=== PATIENT | female | born 1970 | race African-American/Black ===

== ENCOUNTER 2017-09-09 10:25 | Emergency (ER) | payer MEDICAID ==
[~2017-09-09] VITALS: Ht 180.3 cm; Wt 249.5 kg
[~2017-09-09 10:25] MED LIST: ACETAMINOPHEN325 MG PO; ACIDOPHILUS PO; ADULT LOW DOSE81 MG PO; ADVAIRDISKUS; ALBUTEROL INHAL17 GM IH; AMLODIPINE BESY10 MG PO; AMOXICILLIN 50500 M1 PO; BENTYL 10 MG CA10 MG PO; CARVEDILOL12.5 MG; CATAPRES-TTS 20.2 MG PO; CATAPRES0.2 MG PO; CLEOCIN HCL300 MG PO; CLONIDINE HCL0.2 M2 OR; CLONIDINE HCL0.2 M2 PO; CLONIDINE HCL0.3 M2; CLONIDINE0.1 PO; COLACE100 MG PO; COREG PO; COREG12.5 MG PO; COZAAR 25 MG TA25 MG PO; DILTIAZEM ER360 MG; FERRO-TIME325 MG PO; FISH OIL 1,001000 MG PO; FISHOIL PO; FLONASE16 GM NS; FLOVENT HFA 2220 MC1 IH; GLUCOPHAGE; GLUCOPHAGE1000 MG PO; HUMALOG100 UNIT/1 SQ; HYDROCHLOROTHIA25 M1 PO; HYZAAR 100-251 EACH PO; KEFLEX500 MG PO; KLOR-CON 1010 MEQ; KLOR-CON 1010 MEQ PO; KLOR-CON20 MEQ PO; LANTUS SC; LASIX 40 MG TAB40 M1 PO; LEVAQUIN 500 M500 M2 PO; LEVEMIR SQ; LIDODERM 5%1 PATC1 TRANSDERM; LISINOPRIL20 MG PO; LISINOPRIL40 MG PO; LORATIDINE 10 M10 M1 PO; LOTREL 10-20 M1 EACH PO; MEDROLDOSEPACK PO; METFORMIN 500500 MG PO; MIRALAX255 GM PO; NITROQUICK0.4 MG SL; NITROSTAT0.4 MG SUBLING; NORCO 5-325 TA1 EACH PO; NOVOLOG100 UNIT/1 SQ; OMEPRAZOLE20 M2 PO; PENICILLIN; PERCOCET 5-3251 EACH PO; PREDNISONE 10 M10 M1 PO; PREDNISONE 10 M10 MG PO; PREDNISONE 20 M20 M1 PO; PROAIR HFA8.5 GM PO; SEREVENT DISKU50 MCG IH; SIMVASTATIN PO; SIMVASTATIN40 MG PO; SINGULAIR 10 MG10 M1 PO; SYMBICORT160 MCG/4. INH; TRAMADOL 50 MG50 MG; TRANDATE 200 M200 M1 PO; VIBRAMYCIN 100100 MG PO; VICODIN ES TAB1 EACH; VITAMIN B 12 PO; ZPAK PO
[2017-09-09] MEDS ORDERED: NEURONTIN 300300 M1 PO (10:36)
[2017-09-09] MEDS ORDERED: TRAMADOL 50 MG50 MG PO (10:36)
[2017-09-09] MEDS ORDERED: ZANAFLEX2 MG PO (10:38)
[2017-09-09] MEDS ORDERED: CETIRIZINE HCL5 MG PO (10:39)
[2017-09-09] MEDS ORDERED: ATORVASTATIN CA40 MG PO (10:40)
[2017-09-09] MEDS ORDERED: SYMBICORT160 MCG/4. INH (10:41)
[2017-09-09] MEDS ORDERED: CLARITIN10 MG PO (10:42)
[2017-09-09] MEDS ORDERED: NYAMYC15 GM TOP (10:43)
[2017-09-09] MEDS ORDERED: AMLODIPINE BESY10 MG PO (10:43)
[2017-09-09] MEDS ORDERED: IRON325 PO (10:44)
[2017-09-09] MEDS ORDERED: ERGOCALCIF50000 UNIT PO (10:48)
[2017-09-09] MEDS ORDERED: VICTOZA0.6 MG/0.1 SUBQ (10:49)
[2017-09-09] MEDS ORDERED: VITAMIN D3400 UNIT PO (10:51)
[2017-09-09] MEDS ORDERED: SERTRALINE HCL50 MG PO (10:51)
[2017-09-09] MEDS ORDERED: SINGULAIR 10 MG10 M1 PO (10:52)
[2017-09-09] MEDS ORDERED: FLONASE SENSIM9.9 ML INH (10:55)
[2017-09-09] MEDS ORDERED: MIRALAX17 GM PO (10:55)
[2017-09-09] MEDS ORDERED: ATROVENT HFA14 GM INH (10:56)
[2017-09-09] MEDS ORDERED: OLOPATADINE HC2.5 ML OPHTHALMIC (10:57)
[2017-09-09] MEDS ORDERED: ZPAK PO (13:46)
[2017-09-09] MEDS ORDERED: PREDNISONE 20 M20 MG PO (13:46)
[2017-09-09] MEDS ORDERED: ALBUTEROL2.5 MG/31 INH (13:46)
[2017-09-09 13:58] VITALS: BP 170/89
--- NOTE | 2017-09-10 14:15 | EKG ---
[place] [address] ELECTROCARDIOGRAM REPORT Name: YOUNG JACOBSEN Room: [facility]#: [id number] Admission: 09/09/17 Attend Phys: Discharge: 09/09/17 Date of : 70 Report #: [id number] THIS REPORT FOR: //name// [facility] ED Test Date: 2017-09-09 Test Time: 11:00:08 Pat Name: YOUNG JACOBSEN Department: Room: Gender: F Cardiology Clinical Consultant: Padmini STERLING : 1970 Requested By: Sharath Bellamy Order Number: [id number] MD: Eagle Hill Measurements Intervals [place] Rate: 71 P: 43 CT: 217 QRS: 47 QRSD: 103 T: 26 QT: 410 QTc: 446 Interpretive Statements Sinus rhythm Prolonged CT interval Probable left atrial enlargement Low voltage, precordial leads Compared to ECG 03/11/2015 08:44:20 First degree AV block now present Low QRS voltage now present Electronically Signed On 09-10-2017 14:14:58 [employer] by Eagle Hill [email or web address] <ELECTRONICALLY SIGNED> By: Eagle Hill MD, [facility] 09/10/17 1414 1100 1100 Eagle Hill MD, [facility] /EPI
== END 2017-09-09 13:59 | disposition home or self-care (01) ==
LOC: M.ERS 10:25
DX: M79.5 Residual foreign body in soft tissue (principal); J20.9 Acute bronchitis, unspecified; J45.901 Unspecified asthma with (acute) exacerbation; J44.9 Chronic obstructive pulmonary disease, unspecified; I10 Essential (primary) hypertension; E11.9 Type 2 diabetes mellitus without complications; J45.909 Unspecified asthma, uncomplicated; Z79.4 Long term (current) use of insulin; Z88.7 Allergy status to serum and vaccine; Z88.5 Allergy status to narcotic agent; Z91.041 Radiographic dye allergy status; Z88.2 Allergy status to sulfonamides; Z88.1 Allergy status to other antibiotic agents; Z88.8 Allergy status to other drugs, medicaments and biological substances; W46.0XXA Contact with hypodermic needle, initial encounter; Y93.89 Activity, other specified; Y92.89 Other specified places as the place of occurrence of the external cause; Y99.8 Other external cause status

== ENCOUNTER 2018-04-04 13:19 | Emergency (ER) | payer MEDICAID ==
[~2018-04-04] VITALS: Ht 180.3 cm; Wt 242.7 kg
[~2018-04-04 13:19] MED LIST changes: +ALBUTEROL2.5 MG/31 INH; +ATORVASTATIN CA40 MG PO; +ATROVENT HFA14 GM INH; +CETIRIZINE HCL5 MG PO; +CLARITIN10 MG PO; +ERGOCALCIF50000 UNIT PO; +FLONASE SENSIM9.9 ML INH; +IRON325 PO; +MIRALAX17 GM PO; +NEURONTIN 300300 M1 PO; +NYAMYC15 GM TOP; +OLOPATADINE HC2.5 ML OPHTHALMIC; +PREDNISONE 20 M20 MG PO; +SERTRALINE HCL50 MG PO; +TRAMADOL 50 MG50 MG PO; +VICTOZA0.6 MG/0.1 SUBQ; +VITAMIN D3400 UNIT PO; +ZANAFLEX2 MG PO
[2018-04-04] MEDS ORDERED: TOUJEO SOL300 UNIT/1 SUBQ (13:58)
[2018-04-04] MEDS ORDERED: LORATIDINE 10 M10 M1 PO (14:00)
[2018-04-04 14:09] LABS: ABSOLUTE BASOPHILS 0.1 thou/uL (0.0-0.2); ABSOLUTE EOSINOPHILS 0.2 thou/uL (0.0-0.7); ABSOLUTE LYMPHOCYTES 1.4 thou/uL (0.8-5.3); ABSOLUTE MONOCYTES 0.8 thou/uL (0.0-1.2); ABSOLUTE NEUTROPHILS 7.7 thou/uL (1.6-8.1); BASOPHILS 0.5 %; EOSINOPHILS 2.1 %; HEMATOCRIT 35.4 % (37.0-47.0); HEMOGLOBIN 10.9 gm/dL (12.0-15.0); LYMPHOCYTES 13.9 %; MCH 23.4 pg (26.0-34.0); MCHC 30.8 g/dL (28.0-37.0); MCV 75.8 fL (80.0-100.0); MONOCYTES 8.3 %; MPV 7.9 fl. (7.2-11.1); NUCLEATED RBCS 0 /100WBC; PLATELET COUNT* 310 thou/uL (150-400); POLYS 75.2 %; RBC 4.67 mil/uL (4.20-5.00); RDW-CV 21.3 % (10.5-14.5); WBC 10.2 thou/uL (4.0-11.0)
[2018-04-04 14:17] LABS: CALCIUM 8.8 mg/dL (8.5-10.1); CREATININE 1.2 mg/dL (0.6-1.3); POTASSIUM 4.2 mmol/L (3.5-5.1)
[2018-04-04 14:29] LABS: ALBUMIN 2.6 g/dL (3.4-5.0); TOTAL BILIRUBIN 0.2 mg/dL (<0.1-1.0); TOTAL PROTEIN 6.6 g/dL (6.4-8.2); TROPONIN-I LEVEL 0.14 ng/mL (<0.06)
[2018-04-04 14:41] LABS: ANISOCYTOSIS 1+; HYPOCHROMASIA 1+; PLATELET ESTIMATE ADEQUATE
[2018-04-04 17:36] LABS: URINE BILIRUBIN NEGATIVE (Negative); URINE BLOOD 1+ (Negative); URINE CLARITY CLEAR; URINE COLOR YELLOW; URINE GLUCOSE-RANDOM NEGATIVE (Negative); URINE KETONES NEGATIVE (Negative); URINE LEUKOCYTES-REFLEX NEGATIVE (Negative); URINE NITRITE-REFLEX NEGATIVE (Negative); URINE PROTEIN 1+ (Negative); URINE UROBILINOGEN 0.2 E.U./dl (0.2-1.0)
[2018-04-04 17:45] LABS: BACTERIA-REFLEX >30 Many /HPF (None Seen); CASTS None Seen /LPF (None Seen); CRYSTALS None Seen /LPF (None Seen); SQUAMOUS >10 Many /LPF (0-3); URINE RBC 3-10 Few /HPF (0-2); URINE WBC-REFLEX 0-5 Rare /HPF (0-5)
[2018-04-04] MEDS ORDERED: MEDROLDOSEPACK PO (18:18)
[2018-04-04 18:55] VITALS: BP 162/84
--- NOTE | 2018-04-05 17:15 | EKG ---
[place] [address] ELECTROCARDIOGRAM REPORT Name: YOUNG JACOBSEN Room: [facility]#: [id number] Admission: 04/04/18 Attend Phys: Discharge: 04/04/18 Date of : 70 Report #: [id number] THIS REPORT FOR: //name// [facility] ED Test Date: 2018-04-04 Test Time: 15:12:41 Pat Name: YOUNG JACOBSEN Department: Room: Gender: F Marketing Services Coordinator: Padmini STERLING : 1970 Requested By: Eagle Dooley Order Number: [id number] MD: Aurelio Infante Measurements Intervals [place] Rate: 77 P: 39 WA: 188 QRS: 33 QRSD: 105 T: 24 QT: 377 QTc: 427 Interpretive Statements Sinus rhythm Baseline wander in lead(s) V2 Compared to ECG 09/09/2017 11:00:08 First degree AV block no longer present Electronically Signed On 04-05-2018 17:15:34 CDT by Aurelio Infante [email or web address] <ELECTRONICALLY SIGNED> By: Aurelio Infante MD, [facility] 04/05/18 1715 1512 11 Aurelio Infante MD, [facility] /EPI
--- NOTE | 2018-04-05 17:17 | EKG ---
[place] [address] ELECTROCARDIOGRAM REPORT Name: YOUNG JACOBSEN Room: [facility]#: [id number] Admission: 04/04/18 Attend Phys: Discharge: 04/04/18 Date of : 70 Report #: [id number] THIS REPORT FOR: //name// [facility] ED Test Date: 2018-04-04 Test Time: 17:54:55 Pat Name: YOUNG JACOBSEN Department: Room: Gender: F Cardiovascular Rn: Padmini STERLING : 1970 Requested By: Eagle Dooley Order Number: [id number] MD: Aurelio Infante Measurements Intervals [place] Rate: 78 P: 45 AR: 191 QRS: 41 QRSD: 102 T: 25 QT: 379 QTc: 432 Interpretive Statements Sinus rhythm Baseline wander in lead(s) V5 Compared to ECG 09/09/2017 11:00:08 First degree AV block no longer present Electronically Signed On 04-05-2018 17:17:24 CDT by Aurelio Infante [email or web address] <ELECTRONICALLY SIGNED> By: Aurelio Infante MD, [facility] 04/05/18 1717 1754 175 Aurelio Infante MD, [facility] /EPI
== END 2018-04-04 18:56 | disposition home or self-care (01) ==
LOC: M.ERS 13:19
PROVIDERS: Physician Assistant
DX: J45.901 Unspecified asthma with (acute) exacerbation (principal); I10 Essential (primary) hypertension; J44.9 Chronic obstructive pulmonary disease, unspecified; E11.9 Type 2 diabetes mellitus without complications; Z88.7 Allergy status to serum and vaccine; Z91.040 Latex allergy status; Z88.1 Allergy status to other antibiotic agents; Z88.2 Allergy status to sulfonamides; Z88.6 Allergy status to analgesic agent; Z88.8 Allergy status to other drugs, medicaments and biological substances; Z79.4 Long term (current) use of insulin

== ENCOUNTER 2018-07-13 17:04 | Inpatient (IN) | payer MEDICAID ==
[~2018-07-13] VITALS: Ht 180.3 cm; Wt 248.1 kg
[~2018-07-13 17:04] MED LIST changes: +TOUJEO SOL300 UNIT/1 SUBQ
[2018-07-13 17:12] VITALS: BP 185/94
[2018-07-13 17:56] LABS: HEMATOCRIT 38.9 % (37.0-47.0); MCH 23.7 pg (26.0-34.0); MCHC 30.8 g/dL (28.0-37.0); MPV 8.3 fl. (7.2-11.1); NUCLEATED RBCS 0 /100WBC; PLATELET COUNT* 315 thou/uL (150-400); RBC 5.05 mil/uL (4.20-5.00); RDW-CV 20.5 % (10.5-14.5); WBC 8.7 thou/uL (4.0-11.0)
[2018-07-13 18:16] LABS: CALCIUM 9.3 mg/dL (8.5-10.1); CREATININE 1.1 mg/dL (0.6-1.3); POTASSIUM 3.4 mmol/L (3.5-5.1)
[2018-07-13 18:24] LABS: ALBUMIN 3.1 g/dL (3.4-5.0); TOTAL BILIRUBIN 0.3 mg/dL (<0.1-1.0); TROPONIN-I LEVEL 0.15 ng/mL (<0.06)
[2018-07-13 18:34] LABS: ABSOLUTE EOSINOPHILS 0.3 thou/uL (0.0-0.7); ABSOLUTE LYMPHOCYTES 1.9 thou/uL (0.8-5.3); ABSOLUTE MONOCYTES 0.6 thou/uL (0.0-1.2); ABSOLUTE NEUTROPHILS 5.8 thou/uL (1.6-8.1)
[2018-07-13 18:35] LABS: ANISOCYTOSIS 2+; MICROCYTES 2+; PLATELET ESTIMATE ADEQUATE
[2018-07-13 18:36] LABS: LARGE PLATELETS RARE
[2018-07-13 18:39] LABS: TOTAL PROTEIN 7.4 g/dL (6.4-8.2)
[2018-07-13] MEDS ORDERED: IRON325 PO (19:58)
[2018-07-13] MEDS ORDERED: LIDOCAINE5 GM TRANSDERM (19:59)
[2018-07-13 20:51] LABS: APTT 25.2 Seconds (25.0-31.3); INR 1.1
[2018-07-13 23:45] VITALS: BP 162/99
[2018-07-13 23:50] VITALS: BP 188/108
[2018-07-14] VITALS (7 sets, daily range): BP systolic 142–197; BP diastolic 73–111
--- NOTE | 2018-07-14 05:18 | NUR ---
PT ARRIVED ON UNIT FROM ER AT 2345 ASSITED TO BED ORIENTED TO SURROUNDINGS VS AND ASSESSMENT STABLE ON 2L NC. PT RUNNING NSR. PT C/O HEADACHE GAVE PRN TYLENOL WITH GOOD EFFECT PT THEN C/O ITCHING WEB PAGED MD FOR ORDERS. WILL CONTINUE PLAN OF CARE.
[2018-07-14 12:34] LABS: CALCIUM 9.2 mg/dL (8.5-10.1); CREATININE 1.2 mg/dL (0.6-1.3); MAGNESIUM 1.8 mg/dL (1.8-2.4); POTASSIUM 3.9 mmol/L (3.5-5.1)
--- NOTE | 2018-07-14 13:37 | CON ---
[address] [address] CONSULTATION Name: YOUNG JACOBSEN Room: [address] Teresa Flanagan#: [id number] Admission: 07/13/18 Attend Phys: Anshu Ac Discharge: Date of : 70 Report #: [id number] THIS REPORT FOR: //name// CC: BECCA physician/PCP Pavan Dai DATE OF SERVICE: 07/14/2018 REQUESTING PHYSICIAN: Dr. Dai. INDICATION FOR CONSULTATION: Shortness of breath. HISTORY OF PRESENT ILLNESS: This is a 47-year-old female. She has a history of extreme obesity, body mass index is elevated to 76. The patient does have a history of obstructive sleep apnea. She uses a CPAP at home. She does not know the setting of the CPAP. She also does use oxygen 2 liters continuous. She does carry a diagnosis of bronchial asthma and is on Symbicort long-term. The patient only has a remote history of smoking. She has not had any recent hospitalizations. At this time, the patient is admitted with shortness of breath. Essentially, the patient does not have any other new major complaints; however, she does tell me that she has had increasing shortness of breath over the last several days, possibly a couple of weeks. She also says she that has been coughing, but there is not much sputum production. She has not had chest pain. She does have a nasal discharge, which is clear, but she always has a nasal discharge, this is longstanding and not new for her. There is no sore throat, no fever. There is mild swelling of lower extremities, not significantly changed compared with her baseline. The patient reports recently having had neck pain, which has now subsided. She says that she had a scan performed at [facility] for this. I do not have details available. The patient answers to the negative for all questions asked for review of systems, there were 12 questions asked, with the exception that she has had some joint pains and back pain. PAST MEDICAL HISTORY: Extreme morbid obesity, body mass index elevated to 76, ZAIN on CPAP [facility], On O2 2L [facility] bronchial asthma. I do not have previous PFTs available. Hypertension, diabetes, multiple hernia surgeries, multiple keloid surgeries, carpal tunnel syndrome, gastroesophageal reflux disease, hypertensive heart disease, hyperlipidemia, status post cholecystectomy. The last available echocardiogram available [facility], this is from 2010. I do not have a more recent echo available at this time. SOCIAL HISTORY: The patient states that she smoked a few cigarettes when she was younger, does not describe a longstanding history of smoking. There is no known history of heavy alcohol use [place] [address] CONSULTATION Name: YOUNG JACOBSEN Room: [address] MJoseRJose#: [id number] Admission: 07/13/18 Attend Phys: Anshu Ac Discharge: Date of : 70 Report #: [id number] CURRENT MEDICATIONS: The list is in [employer] and this was reviewed. HOME MEDICATIONS: The list also is in [employer] and is reviewed. ALLERGIES: MORPHINE, LATEX, SULFONAMIDE ANTIBIOTICS, CERTAIN TYPES OF TAPE AND TETANUS TOXOID ARE MENTIONED ALLERGIES. FAMILY HISTORY: There is no pertinent family history known at this time. PHYSICAL EXAMINATION: GENERAL: The patient is morbidly obese as mentioned. She is alert, awake and oriented. VITAL SIGNS: She has a pulse of 91 and a blood pressure elevated to 177/105. She is saturating at 93%. She is on 2 liters nasal cannula, which is her baseline oxygen level. She is breathing at around 20-22. She is afebrile with a temperature of 36.7. HEENT: Head is normocephalic and atraumatic. Pupils are equal and reactive. There is no throat erythema. Incredibly, I was able to see her whole uvula. Her airway by Mallampati classification will be class 1. Considering severe obesity, however, this is a much narrower than a typical Mallampati class 1 airway. There is minor throat erythema only. NECK: Does not show raised JVP, asymmetry, mass or lymph nodes. CHEST: Symmetrical expansion on inspection and palpation. On auscultation, breath sounds are equal, decreased. I do not hear any added sounds. HEART: Regular. There is no murmur. ABDOMEN: Soft and nontender. EXTREMITIES: Lower extremities show trace edema bilaterally. There is no calf tenderness. SKIN: Dry and intact. NEUROLOGICAL: She moves all extremities bilaterally equally and spontaneously with no focal deficit identified. LABORATORY DATA: The patient's chest x-ray is reviewed and compared with the patient's previous chest x-rays. There are bilateral radiopaque densities consistent with either increase in infiltrates or increase in pulmonary vascular congestion noted. Some of these findings do appear to be new compared with the patient's previous chest x-rays. Interpretation, however, is limited due to severe obesity. There are also bilateral increased hilar markings consistent with possible mediastinal lymphadenopathy. This is seen on previous x-rays as well. There is also some cardiomegaly. The patient's CBC as well as chemistries performed yesterday are in [employer] reviewed. I did have repeat chemistries added to this morning labs. These are also reviewed. D-dimer was 0.49. INR is 1.1. ASSESSMENT AND PLAN: [address] [place] [address] CONSULTATION Name: YOUNG JACOBSEN Room: [address] Teresa Rey.#: [id number] Admission: 07/13/18 Attend Phys: Anshu Ac Discharge: Date of : 70 Report #: [id number] 1. Shortness of breath. This appears to be multifactorial in the background. The patient has extreme obesity, which is her primary health concern. I would have liked to define further why current decompensation has occurred by doing a CT chest. The patient, however, appears to be too large to perform a CT. Chest x-ray does look worse compared with the previous chest x-rays. There likely are some infiltrates present. In addition, there may be a component of bronchospasm as well. The patient may also have some mild fluid overload. 2. Extreme morbid obesity, needs weight loss. This is still the primary etiology of her shortness of breath. She is already working on weight loss surgery. 3. Obstructive Sleep Apnea with Sleep Related Hypoventilation On CPAP [facility] with O2. Appears that she hypoventilates while asleep. Doubt that full control can be achieved with a CPAP. May benefit from either BiPAP or AVAPS [facility]. For now AVAPS sleep ordered, consider an outpatient sleep study later to switch to BiPAp 4. Pulmonary infiltrates/possible mediastinal lymphadenopathy. There are prominent hilar markings on previous x-rays noted as well. These are more prominent now. Unfortunately we may not be able to do a CT. I would go ahead and treat her with levofloxacin. I ordered it intravenously after obtaining a sputum culture as well as nasal swab for methicillin-resistant Staphylococcus aureus. If the patient's condition improves, then we would be inclined to change this over to oral soon. Would need f/u imaging. SHA level ordered to establish baseline 5. Bronchial asthma. For now, I did go ahead and order Solu-Medrol, could be switched over to oral prednisone soon if she continues to improve. She remains on nebulized bronchodilators and budesonide and Singulair already. 6. Mild fluid overload/possible cardiomegaly/edema. Her D-dimer is not elevated. There is an echocardiogram pending at this time. I will go ahead and give her a small dose of diuresis and see how she responds. Mild elevations in troponin I are noted. I would defer followup of these to the Cardiology Service. 7. Deep venous thrombosis prophylaxis, Lovenox. 8. Gastroesophageal reflux disease, proton pump inhibitor. Thanks for this consultation. <ELECTRONICALLY SIGNED> By: Rodrick Joaquin MD 07/14/18 1337 1241 1311Avidya Joaquin MD /nt
--- NOTE | 2018-07-14 13:45 | EKG ---
[place] [address] ELECTROCARDIOGRAM REPORT Name: YOUNG JACOBSEN Room: [address] M.R.#: [id number] Admission: 07/13/18 Attend Phys: Anshu Ac Discharge: Date of : 70 Report #: [id number] THIS REPORT FOR: //name// [facility] ED Test Date: 2018-07-13 Test Time: 17:14:53 Pat Name: YOUNG JACOBSEN Department: Room: [facility] Gender: F Anglesmith Helper: : 1970 Requested By: Jr Noel Order Number: [id number] MD: Dejan Burdick Measurements Intervals [place] Rate: 87 P: 45 IA: 204 QRS: 48 QRSD: 107 T: 53 QT: 382 QTc: 460 Interpretive Statements Sinus rhythm Borderline prolonged IA interval Compared to ECG 04/04/2018 17:54:55 No significant changes Electronically Signed On 07-14-2018 13:45:09 [employer] by Dejan Burdick [email or web address] <ELECTRONICALLY SIGNED> By: Dejan Burdick MD, [facility] 07/14/18 1345 1714 1714 Dejan Burdick MD, [facility] /EPI
--- NOTE | 2018-07-14 14:27 | NUR ---
Pt is A&O. Resides at home with brother. Pt states that she is independent. Pt has Medicaid in home caregivers through [employer], CGs come on Wednesday from 10-1230, Wednesday from 1-430 and Wednesday from 1-4. Pt has a walker, wc, commode and home o2 through [facility]. Pt wants a shower chair, CM will check to see if [employer] will pay for a shower chair. No hx of HH or SNF. Following for disposition.
--- NOTE | 2018-07-14 14:58 | EKG ---
[place] [address] ELECTROCARDIOGRAM REPORT Name: YOUNG JACOBSEN Room: [address] M.R.#: [id number] Admission: 07/13/18 Attend Phys: Anshu Ac Discharge: Date of : 70 Report #: [id number] THIS REPORT FOR: //name// [facility] Test Date: 2018-07-14 Test Time: 08:08:07 Pat Name: YOUNG JACOBSEN Department: Room: [address] Gender: F Machine Compositor: : 1970 Requested By: Cecile Wild Order Number: [id number] Gaurav MD: Dejan Burdick Measurements Intervals [place] Rate: 94 P: 49 RI: 195 QRS: 44 QRSD: 107 T: 26 QT: 384 QTc: 481 Interpretive Statements Sinus rhythm Compared to ECG 04/04/2018 17:54:55 No significant changes Electronically Signed On 07-14-2018 14:58:14 [employer] by Dejan Burdick [email or web address] <ELECTRONICALLY SIGNED> By: Dejan Burdick MD, [facility] 07/14/18 1458 7 7 Dejan Burdick MD, [facility] /EPI
--- NOTE | 2018-07-14 19:43 | NUR ---
ASSUMED PT CARE AT 0730, FULL ASSESMENT DONE CHARTED. PT A/O X4, DENIES CHEST PAIN, DENIES SOA THIS AM BUT WAS HAVING SOME DIFFICULTY THIS AFTERNOON. PT PLACED BACK ON 2L O2. BIPAP ORDERED FOR TONIGHT. PT UP WITH ASSIST/WALKER. BP ELEVATED, DID COME BACK DOWN AFTER HOME MEDS RESUMED. ALL OTHER VSS, SR/PVC'S ON THE MONITOR. FALL PRECAUTIONS IN PLACE. CALL LIGHT IN REACH. REPORT GIVEN TO SRINIVASAN DEL ROSARIO
[2018-07-15] VITALS: BP 141/83
--- NOTE | 2018-07-15 03:28 | NUR ---
ASSUMED CARE OF PT AT 1900. PT IS ALERT AND ORIENTED. VSS. PERRLA. NO COMPLAINTS OF PAIN. STEADY GAIT. PT IS IN SINUS RYTHM ON THE TELEMETRY. PT IS RESTING COMFORTABLY IN BED. RESPIRATIONS ARE EVEN AND NONLABORED. WILL CONTINUE TO MONITOR PT.
[2018-07-15 04:00] VITALS: BP 142/97
[2018-07-15 06:46] LABS: HEMATOCRIT 38.7 % (37.0-47.0); HEMOGLOBIN 11.5 gm/dL (12.0-15.0); MCH 23.3 pg (26.0-34.0); MCHC 29.8 g/dL (28.0-37.0); MCV 78.3 fL (80.0-100.0); MPV 8.8 fl. (7.2-11.1); NUCLEATED RBCS 0 /100WBC; PLATELET COUNT* 353 thou/uL (150-400); RBC 4.94 mil/uL (4.20-5.00); WBC 11.8 thou/uL (4.0-11.0)
[2018-07-15 07:03] LABS: CALCIUM 9.1 mg/dL (8.5-10.1); CREATININE 1.1 mg/dL (0.6-1.3); TOTAL BILIRUBIN 0.4 mg/dL (<0.1-1.0); TROPONIN-I LEVEL 0.15 ng/mL (<0.06)
[2018-07-15 07:13] LABS: ABSOLUTE LYMPHOCYTES 0.5 thou/uL (0.8-5.3); ABSOLUTE MONOCYTES 0.4 thou/uL (0.0-1.2); PLATELET ESTIMATE ADEQUATE
[2018-07-15 07:14] LABS: ANISOCYTOSIS 1+; POIKILOCYTOSIS 1+; POLYCHROMASIA 1+
--- NOTE | 2018-07-15 07:24 | 2DMMODE ---
[place] [address] 2 D/M-MODE ECHOCARDIOGRAM Name: YOUNG JACOBSEN Room: [address] Teresa Flanagan#: [id number] Admission: 07/13/18 Attend Phys: Pavan Dai Discharge: Date of : 70 Date of Service: 07/15/18 0723 Report #: [id number] THIS REPORT FOR: //name// APPROVED REPORT Study performed: 07/14/2018 18:14:14 EXAM: Comprehensive 2D, Doppler, and color-flow Echocardiogram Patient Location: Bedside BSA: 3.23 HR: 98 bpm BP: 177/105 mmHg Other Information Study Quality: Technically Limited Technically limited study due to body habitus. Indications Dyspnea 2D Dimensions IVSd: 14.97 (7-11mm) LVOT Diam: 23.70 (18-24mm) LVDd: 56.72 mm PWd: 16.89 (7-11mm) Ascending Ao: 36.65 (22-36mm) LVDs: 44.39 (25-40mm) Aortic Root: 32.77 mm Aortic Valve AoV Peak Mendez.: 1.12 m/s AO Peak Gr.: 5.06 mmHg LVOT Max P.89 mmHg AO Mean Gr.: 3.74 mmHg LVOT Mean P.67 mmHg LVOT Max V: 1.49 m/s AO V2 VTI: 18.14 cm LVOT Mean V: 0.86 m/s JANENE (VTI): 6.52 cm2 LVOT V1 VTI: 26.80 cm Mitral Valve E/A Ratio: 1.24 MV Decel. Time: 154.52 ms MV E Max Mendez.: 0.51 m/s MV PHT: 44.81 ms MVA (PHT): 4.91 cm2 Pulmonary Valve PV Peak Mendez.: 1.14 m/s PV Peak Gr.: 5.17 [place] [address] 2 D/M-MODE ECHOCARDIOGRAM Name: YOUNG JACOBSEN Room: [address] Teresa Flanagan#: [id number] Admission: 07/13/18 Attend Phys: Pavan Dai Discharge: Date of : 70 Date of Service: 07/15/18 0723 Report #: [id number] Left Ventricle The left ventricle is normal size. There is normal LV segmental wall motion. Moderate concentric left ventricular hypertrophy. Left ventricular systolic function is normal. LVEF is 55-60%. Transmitral Doppler flow pattern suggests impaired LV relaxation. Right Ventricle The right ventricle is normal size. The right ventricular systolic function is normal. Atria The left atrium size is normal. Interatrial septum not well visualized. The right atrium size is normal. Aortic Valve The aortic valve is normal in structure. No aortic regurgitation is present. There is no aortic valvular stenosis. Mitral Valve The mitral valve is normal in structure. There is no mitral valve regurgitation noted. No evidence of mitral valve stenosis. Tricuspid Valve Tricuspid valve is not well visualized. There is no tricuspid valve regurgitation noted. Pulmonic Valve The pulmonary valve is normal in structure. There is no pulmonic valvular regurgitation. Great Vessels The aortic root is normal in size. IVC is dilated. Pericardium There is no pericardial effusion. <Conclusion> The left ventricle is normal size. Moderate concentric left ventricular hypertrophy. Left ventricular systolic function is normal. LVEF is 55-60%. [place] [address] 2 D/M-MODE ECHOCARDIOGRAM Name: YOUNG JACOBSEN Room: [address] Teresa Flanagan#: [id number] Admission: 07/13/18 Attend Phys: Pavan Dai Discharge: Date of : 70 Date of Service: 07/15/18722 Report #: [id number] Transmitral Doppler flow pattern suggests impaired LV relaxation. IVC is dilated. <ELECTRONICALLY SIGNED> By: Aurelio Infante MD, [facility] 07/15/18722 2 0723 Aurelio Infante MD, [facility]ACC /INF
--- NOTE | 2018-07-15 08:22 | CON ---
[address] [address] CONSULTATION Name: YOUNG JACOBSEN Room: [address] Teresa Flanagan#: [id number] Admission: 07/13/18 Attend Phys: Anshu Ac Discharge: Date of : 70 Report #: [id number] THIS REPORT FOR: //name// CC: BECCA physician/PCP Pavan Dai DATE OF SERVICE: 07/14/2018 CHIEF COMPLAINT: Shortness of breath. HISTORY OF PRESENT ILLNESS: The patient is a morbidly obese 47-year-old female admitted to the hospital with complaints of increasing shortness of breath over the last 2 weeks. In this setting, she is noted to have a minimally elevated troponin. Historically, she has an elevated troponin that appears to be chronic. She is not having any chest discomfort to suggest acute coronary syndrome. She denies cough. She states that her CPAP makes her shortness of breath worse. She denies fevers or chills. She is without other cardiac complaint. PAST MEDICAL HISTORY: 1. Morbid obesity. 2. Asthma. 3. Hypertension. 4. Type 2 diabetes mellitus. PAST SURGICAL HISTORY: 1. Hernia repair x 6. 2. Keloid removals. 3. Carpal tunnel surgery. FAMILY HISTORY: Noncontributory. SOCIAL HISTORY: The patient is a lifelong nonsmoker. She does not use alcohol. REVIEW OF SYSTEMS: A 14-point review of systems is positive for generalized weakness, nonproductive cough, asthma, dyspnea, orthopnea, paroxysmal nocturnal dyspnea, edema, type 2 diabetes mellitus, anemia, history of ovarian cancer, depression, anxiety, arthritis, keloids, glasses. Otherwise, 14-point review of systems is unremarkable. PHYSICAL EXAMINATION: VITAL SIGNS: Blood pressure 177/105, pulse 92 and regular. GENERAL: This is a morbidly obese female in no distress. HEENT: The patient is wearing glasses. Extraocular muscles intact. Mucous membranes are moist. NECK: [place] [address] CONSULTATION Name: YOUNG JACOBSEN Room: [address] MJose.#: [id number] Admission: 07/13/18 Attend Phys: Anshu Ac Discharge: Date of : 70 Report #: [id number] CHEST: Shows clear lungs. CARDIOVASCULAR: Reveals a distant S1 and S2. I do not appreciate gallop or murmur. ABDOMEN: Reveals obese, protuberant abdomen that is soft and nontender. EXTREMITIES: Shows 1+ to 2+ edema to the thighs bilaterally. SKIN: Warm and dry. LABORATORY DATA: Reviewed. Troponins currently 0.15, 0.16 and 0.14. As noted, historically, she has elevated troponins. Chest x-ray shows possible cardiomegaly and mild chronic congestion. EKG shows a sinus rhythm without acute ST segment abnormality. IMPRESSION AND RECOMMENDATIONS: 1. Elevated troponin due to cardiac strain consistent with type 2 myocardial infarction. I do not believe she is having acute coronary syndrome. I do not believe further workup or invasive evaluation is warranted at this time. 2. Acute on chronic diastolic heart failure. We will repeat echocardiogram. Recommend IV Lasix. 3. Hypertension. We will make adjustments through hypertensive regimen in an effort to improve her blood pressure. 4. Hypertensive heart disease. We will make medication adjustments in an effort to improve her blood pressure. 5. Morbid obesity contributing to her multiple other health problems. 6. Diabetes per primary physician. <ELECTRONICALLY SIGNED> By: Aurelio Infante MD, [facility] 07/15/18821 1331 21Miccoral Infante MD, FACC /nt
[2018-07-15 08:30] VITALS: BP 164/84
[2018-07-15 12:00] VITALS: BP 169/103
--- NOTE | 2018-07-15 12:33 | NUR ---
CM updated Pt that [facility] does not cover shower chairs. Anticipate that Pt will be ready to dc home tomorrow.
[2018-07-15 13:34] LABS: URINE BILIRUBIN NEGATIVE (Negative); URINE BLOOD 3+ (Negative); URINE CLARITY CLEAR; URINE COLOR YELLOW; URINE GLUCOSE-RANDOM 3+ (Negative); URINE KETONES NEGATIVE (Negative); URINE LEUKOCYTES-REFLEX NEGATIVE (Negative); URINE NITRITE-REFLEX NEGATIVE (Negative); URINE PROTEIN 2+ (Negative); URINE UROBILINOGEN 0.2 E.U./dl (0.2-1.0)
[2018-07-15 14:17] LABS: BACTERIA-REFLEX None Seen /HPF (None Seen); CASTS None Seen /LPF (None Seen); CRYSTALS None Seen /LPF (None Seen); SQUAMOUS 4-10 Moderate /LPF (0-3); URINE RBC 3-10 Few /HPF (0-2); URINE WBC-REFLEX None Seen /HPF (0-5)
[2018-07-15 16:00] VITALS: BP 169/90
--- NOTE | 2018-07-15 17:50 | NUR ---
ASSUMED PT CARE AT 0700 PT IS ALERT AND ORIENTED X 4 PT C/O PAIN IN RIGHT LEG PT HAS WARM HARD AREA PHYSICIAN ARE AWARE NO NEW ORDERS OBTAINED WILL CONTINUE TO MONITOR, PT IS SR ON THE MONITOR PT IS UP AD PARI TO BEDSIDE COMMODE PT IS NOT A FALL RISK, PT HAS 2L/NC PT WEARS BIPAP AT NIGHT, PT C/O HEADACHE GAVE TYLENOL, WILL CONTINUE TO MONITOR
[2018-07-15 20:15] VITALS: BP 170/92
[2018-07-16] VITALS: BP 152/95
[2018-07-16 04:00] VITALS: BP 158/95
--- NOTE | 2018-07-16 05:13 | NUR ---
PT CARE ASSUMED AT 1930. SAT MAINTAINED IN BIPAP 35% O2 AT NIGHT. CALL LIGGHT WITHIN REACH AND BED IN LOW POSITION. DENIES ANY CHEST PAIN AND SOB. PT STATED ITCHING ALL OVER THE BODY, MEDICATION GIVEN PER EMAR. CONTACT PRECAUTIONS MAINTAINED FOR MRSA. WILL CONTINUE TO MONITOR.
[2018-07-16 09:00] VITALS: BP 175/103
[2018-07-16 12:00] VITALS: BP 164/96
[2018-07-16 12:56] LABS: CALCIUM 8.9 mg/dL (8.5-10.1); CREATININE 1.2 mg/dL (0.6-1.3); POTASSIUM 4.2 mmol/L (3.5-5.1)
--- NOTE | 2018-07-16 13:06 | NUR ---
ASSUMED PT CARE AT 0700 PT IS ALERT AND ORIENTED X 4 PT DENIES PAIN OR SOA ON 2L/NC, PT IS UP AD PARI TO BEDSIDE COMMODE PT IS NOT A FALL RISK, PT IS SR ON THE MONITOR, PT C/O COUGH AND DIFFICULTY COUGHING UP SPUTUM PAGED PHYSICIAN OBTAINED ORDER FOR TESSLON PEARLS AND MUSINEX, PULMONOLGY INCREASED STEROID PT BLOOD SUGARS HAVE BEEN ELEVATED PAGED PHYSICIAN TO NOTIFY OF BLOOD SUGARS OBTAINED ORDERS TO INCREASE SLIDING SCALE INSULIN, WILL CONTINUE TO MONITOR
[2018-07-16 16:00] VITALS: BP 149/78
[2018-07-16 20:00] VITALS: BP 144/93
[2018-07-17] VITALS: BP 173/97
[2018-07-17 04:53] VITALS: BP 187/107
[2018-07-17 05:05] LABS: MCH 23.5 pg (26.0-34.0); MCV 78.4 fL (80.0-100.0); MPV 8.8 fl. (7.2-11.1); NUCLEATED RBCS 0 /100WBC; PLATELET COUNT* 280 thou/uL (150-400); WBC 12.6 thou/uL (4.0-11.0)
[2018-07-17 05:31] LABS: ALBUMIN 2.9 g/dL (3.4-5.0); CALCIUM 8.4 mg/dL (8.5-10.1); CREATININE 1.2 mg/dL (0.6-1.3); MAGNESIUM 2.1 mg/dL (1.8-2.4); PHOSPHORUS* 2.9 mg/dL (2.5-4.9); POTASSIUM 4.1 mmol/L (3.5-5.1); TOTAL BILIRUBIN 0.3 mg/dL (<0.1-1.0); TOTAL PROTEIN 6.4 g/dL (6.4-8.2)
--- NOTE | 2018-07-17 05:35 | NUR ---
PT CARE ASSUMED AT 1930. ALERT AND ORIENTED X4. SAT MAINTAINED IN 2L NC. BIPAP AT NIGHT. UP ADLIB TO COMMODE. CALL LIGHT WITHIN REACH AND BED IN LOW POSITIONS. PT DENIES ANY PAIN AND SOB AT THIS SHIFT. STATED ITCHING ALL OVER HER BODY, MEDICATION GIVEN PER EMAR AND CHARTED. EDUCATED ON PLAN OF CARE, STATES UNDERSTANDING WILL CONTINUE TO MONITOR.
[2018-07-17 07:56] LABS: ABSOLUTE LYMPHOCYTES 0.4 thou/uL (0.8-5.3); ABSOLUTE MONOCYTES 0.3 thou/uL (0.0-1.2); GIANT PLATELETS RARE; PLATELET ESTIMATE ADEQUATE; TARGET CELLS 1+
[2018-07-17 07:57] LABS: SCHISTOCYTES Occasional
[2018-07-17 07:59] LABS: ANISOCYTOSIS 1+; HYPOCHROMASIA 1+; MACROCYTES 1+
[2018-07-17 08:00] VITALS: BP 177/89
[2018-07-17 08:00] LABS: TOXIC GRANULATION 2+
[2018-07-17 12:00] VITALS: BP 160/64
[2018-07-17 16:00] VITALS: BP 154/88
--- NOTE | 2018-07-17 18:55 | NUR ---
ASSUMED PT CARE AT 0730, FULL ASSESMENT DONE CHARTED. PT A/O X4, DENIES PAIN, UP AD PARI, BP ELEVATED BUT STABLE, AM BP MEDS GIVEN PER NOV. SR ON THE MONITOR. PTS IV IN RIGHT AC PULLED OUT, ATTEMPTED TO START NEW IV IN RIGHT FA, INFITRATED. NEW IV STARTED IN LEFT UPPER AM. PT ON 2L O2, SOA WITH EXHURSION. PT WANTS TO GO HOME. USES CALL LIGHT APPROPRIALTY. WILL CONTINUE WITH PLAN OF CARE.
[2018-07-17 20:00] VITALS: BP 178/96
[2018-07-18] VITALS: BP 148/85
[2018-07-18 04:00] VITALS: BP 148/88
--- NOTE | 2018-07-18 04:32 | NUR ---
ASSUMED PT CARE AT 1930. NURSING ASSESSMENT COMPLETED AT START OF SHIFT. PT TRACING SINUS RHYTHM THIS SHIFT, HOURLY ROUNDING COMPLETED. CALL LIGHT WITHIN REACH.
[2018-07-18 06:09] LABS: HEMATOCRIT 40.1 % (37.0-47.0); HEMOGLOBIN 12.2 gm/dL (12.0-15.0); MCH 23.6 pg (26.0-34.0); MCHC 30.4 g/dL (28.0-37.0); MCV 77.8 fL (80.0-100.0); MPV 8.5 fl. (7.2-11.1); RBC 5.15 mil/uL (4.20-5.00); WBC 11.2 thou/uL (4.0-11.0)
[2018-07-18 06:31] LABS: ALBUMIN 2.6 g/dL (3.4-5.0); CALCIUM 8.6 mg/dL (8.5-10.1); CREATININE 1.2 mg/dL (0.6-1.3); MAGNESIUM 2.2 mg/dL (1.8-2.4); POTASSIUM 3.8 mmol/L (3.5-5.1); TOTAL BILIRUBIN 0.3 mg/dL (<0.1-1.0); TOTAL PROTEIN 6.3 g/dL (6.4-8.2)
[2018-07-18 08:19] VITALS: BP 160/87
[2018-07-18 08:23] VITALS: BP 160/87
[2018-07-18] MEDS ORDERED: PREDNISONE 10 M10 MG PO (12:41)
[2018-07-18] MEDS ORDERED: LEVAQUIN 500 M500 M2 PO (12:42)
--- NOTE | 2018-07-18 13:26 | NUR ---
ASSUMED PT CARE AT 0730, FULL ASSESMENT DONE CHARTED. PT A/O X4, DENIES PAIN, SR/PVC'S ON THE MONITOR. O2 SAT 95% ON2L. PT WANTS TO GO HOME TODAY. RECIEVED DISCHARGE ORDERS AND SCRIPTS. PT LEFT WITH BELONGINGS IN BY STAFF AT APPROX 1330
== END 2018-07-18 13:29 | disposition home or self-care (01) | DRG 280 ==
LOC: M.ERS 17:04 → M.2W 21:23 → M.TBA-ER 21:23 → M.2W 22:35
PROVIDERS: Family Medicine; Internal Medicine Critical Care Medicine; Nurse Practitioner Family; Personal Emergency Response Attendant; ADMIT Internal Medicine
PROC: 5A09357 Assistance with Respiratory Ventilation, Less than 24 Consecutive Hours, Continuous Positive Airway Pressure (ICD-10-PCS; principal; 2018-07-15)
PROC: 5A09357 Assistance with Respiratory Ventilation, Less than 24 Consecutive Hours, Continuous Positive Airway Pressure (ICD-10-PCS; 2018-07-17)
PROC: 5A09357 Assistance with Respiratory Ventilation, Less than 24 Consecutive Hours, Continuous Positive Airway Pressure (ICD-10-PCS; 2018-07-18)
DX: I21.A1 Myocardial infarction type 2 (principal); I50.33 Acute on chronic diastolic (congestive) heart failure; J96.20 Acute and chronic respiratory failure, unspecified whether with hypoxia or hypercapnia; J45.901 Unspecified asthma with (acute) exacerbation; Z68.45 Body mass index [BMI] 70 or greater, adult; J44.9 Chronic obstructive pulmonary disease, unspecified; E11.9 Type 2 diabetes mellitus without complications; E66.01 Morbid (severe) obesity due to excess calories; G47.33 Obstructive sleep apnea (adult) (pediatric); K21.9 Gastro-esophageal reflux disease without esophagitis; E87.70 Fluid overload, unspecified; I11.0 Hypertensive heart disease with heart failure; L91.0 Hypertrophic scar; Z79.82 Long term (current) use of aspirin; Z88.2 Allergy status to sulfonamides; Z88.7 Allergy status to serum and vaccine; Z88.8 Allergy status to other drugs, medicaments and biological substances; Z88.6 Allergy status to analgesic agent; Z91.040 Latex allergy status; Z90.49 Acquired absence of other specified parts of digestive tract; Z87.891 Personal history of nicotine dependence; Z82.49 Family history of ischemic heart disease and other diseases of the circulatory system; Z82.5 Family history of asthma and other chronic lower respiratory diseases; Z79.899 Other long term (current) drug therapy

== ENCOUNTER 2018-10-28 10:32 | Inpatient (IN) | payer MEDICAID ==
[~2018-10-28] VITALS: Ht 180.3 cm; Wt 262.6 kg
[~2018-10-28 10:32] MED LIST changes: +LIDOCAINE5 GM TRANSDERM
[2018-10-28 10:37] VITALS: BP 152/86
--- NOTE | 2018-10-28 10:52 | NUR ---
SOILA AT BEDSIDE FOR ULTRASOUND IV PLACEMENT
[2018-10-28 11:38] LABS: BE 9.8 mmol/L (-2 to +3); PO2 VENOUS 48.1 mmHg (35.0-45.0)
[2018-10-28 12:35] LABS: ABSOLUTE EOSINOPHILS 0.1 thou/uL (0.0-0.7); ABSOLUTE LYMPHOCYTES 0.9 thou/uL (0.8-5.3); ABSOLUTE MONOCYTES 0.5 thou/uL (0.0-1.2); ABSOLUTE NEUTROPHILS 5.9 thou/uL (1.6-8.1); BASOPHILS 0.7 %; EOSINOPHILS 1.4 %; HEMATOCRIT 37.9 % (37.0-47.0); HEMOGLOBIN 11.5 gm/dL (12.0-15.0); LYMPHOCYTES 12.6 %; MCH 24.4 pg (26.0-34.0); MCHC 30.5 g/dL (28.0-37.0); MONOCYTES 7.1 %; MPV 8.2 fl. (7.2-11.1); NUCLEATED RBCS 0 /100WBC; PLATELET COUNT* 251 thou/uL (150-400); POLYS 78.2 %; RBC 4.74 mil/uL (4.20-5.00); WBC 7.5 thou/uL (4.0-11.0)
[2018-10-28 12:47] LABS: APTT 24.8 Seconds (25.0-31.3); INR 1.1; PROTIME 11.1 Seconds (9.20-11.50)
[2018-10-28 12:58] LABS: ALBUMIN 2.9 g/dL (3.4-5.0); CALCIUM 9.1 mg/dL (8.5-10.1); CREATININE 1.2 mg/dL (0.6-1.3); POTASSIUM 3.2 mmol/L (3.5-5.1); TOTAL BILIRUBIN 0.4 mg/dL (<0.1-1.0); TOTAL PROTEIN 6.7 g/dL (6.4-8.2); TROPONIN-I LEVEL 0.19 ng/mL (<0.06)
--- NOTE | 2018-10-28 15:37 | EKG ---
[place] [address] ELECTROCARDIOGRAM REPORT Name: YOUNG JACOBSEN Room: [place] [address] ADM IN [facility].#: [id number] Admission: 10/28/18 Attend Phys: Kelvin Sandoval MD Discharge: Date of : 70 Report #: [id number] THIS REPORT FOR: //name// [facility] ED Test Date: 2018-10-28 Test Time: 10:43:12 Pat Name: YOUNG JACOBSEN Department: Room: [facility] Gender: F Destination Imagination Coordinator: SUSANNAH : 1970 Requested By: Som Persaud Order Number: [id number] MD: Eagle Hill Measurements Intervals [place] Rate: 72 P: 47 NH: 193 QRS: 45 QRSD: 114 T: 40 QT: 388 QTc: 425 Interpretive Statements Sinus rhythm Probable left atrial enlargement Borderline intraventricular conduction delay Baseline wander in lead(s) II,III,aVR,aVF,V2,V3,V4,V6 Compared to ECG 07/14/2018 08:08:07 No significant changes Electronically Signed On 10-28-2018 15:37:06 BONDERIZER by Eagle Hill [email or web address] <ELECTRONICALLY SIGNED> By: Eagle Hill MD, FAC 10/28/18 1537 1043 1043 Eagle Hill MD, FAC /EPI
[2018-10-28 17:00] VITALS: BP 172/110
[2018-10-28 18:25] VITALS: BP 169/111
[2018-10-28 18:40] VITALS: BP 174/102
--- NOTE | 2018-10-28 19:48 | NUR ---
PATIENT ADMITTED TO ROOM 310 VIA CART FROM ER AT 1840. PATIENT PLACED ON DOUBLE END TENONER SETTER. PATIENT ON O2 AT 4L/NC. PATIENT'S ADMISSION PROCESS COMPLETED. SALINE LOCK PATENT. PATIENT UP WITH SBA AND WALKER. PATIENT PLACED ON BARIATRIC BED. CALL LIGHT WITHIN REACH. WILL CONTINUE WITH PLAN OF CARE.
[2018-10-28 20:40] VITALS: BP 170/96
[2018-10-28] MEDS ORDERED: FLONASE 0.05%50 MCG NASAL (21:02)
[2018-10-29 01:00] VITALS: BP 179/110
[2018-10-29 04:29] LABS: HEMATOCRIT 37.7 % (37.0-47.0); HEMOGLOBIN 11.8 gm/dL (12.0-15.0); MCH 24.7 pg (26.0-34.0); MCHC 31.3 g/dL (28.0-37.0); MPV 8.6 fl. (7.2-11.1); NUCLEATED RBCS 0 /100WBC; PLATELET COUNT* 292 thou/uL (150-400); RBC 4.77 mil/uL (4.20-5.00); RDW-CV 20.6 % (10.5-14.5); WBC 9.7 thou/uL (4.0-11.0)
[2018-10-29 04:34] LABS: CALCIUM 9.2 mg/dL (8.5-10.1); CREATININE 1.2 mg/dL (0.6-1.3); POTASSIUM 3.4 mmol/L (3.5-5.1)
[2018-10-29 04:38] VITALS: BP 160/94
[2018-10-29 06:47] LABS: ABSOLUTE LYMPHOCYTES 0.6 thou/uL (0.8-5.3); ABSOLUTE MONOCYTES 0.2 thou/uL (0.0-1.2); ABSOLUTE NEUTROPHILS 8.9 thou/uL (1.6-8.1); ANISOCYTOSIS 1+; PLATELET ESTIMATE ADEQUATE; POIKILOCYTOSIS 1+
--- NOTE | 2018-10-29 07:15 | NUR ---
PATIENT SLEPT VERY LITTLE THIS SHIFT. IV REMAINS SALINE LOCKED. PATIENT WAS GIVEN HYDRALAZINE ONCE FOR HIGH BLOOD PRESSURE. BP DID COME DOWN CHARTED. PATIENT WAS GIVEN SCHEDULED TRAMDOL FOR PAIN. PATIENT IS ON OXYGEN AT 5L PER NC SATTING 94-95%. WILL CONTINUE TO MONITOR.
[2018-10-29 08:00] VITALS: BP 155/86
[2018-10-29 12:00] VITALS: BP 159/89
[2018-10-29 15:50] VITALS: BP 136/87
[2018-10-29 17:17] LABS: URINE BILIRUBIN NEGATIVE (Negative); URINE BLOOD 1+ (Negative); URINE CLARITY CLEAR; URINE COLOR YELLOW; URINE GLUCOSE-RANDOM 1+ (Negative); URINE KETONES NEGATIVE (Negative); URINE LEUKOCYTES-REFLEX NEGATIVE (Negative); URINE NITRITE-REFLEX NEGATIVE (Negative); URINE PROTEIN 3+ (Negative); URINE SPECIFIC GRAVITY >= 1.030 (1.005-1.030); URINE UROBILINOGEN 0.2 E.U./dl (0.2-1.0)
[2018-10-29 17:35] LABS: AMP/METHAMP Negative (Negative); BARBITURATES Negative (Negative); BENZODIAZEPINES Negative (Negative); COCAINE Negative (Negative); METHADONE Negative (Negative); OPIATES Negative (Negative); PCP Negative (Negative); THC Negative (Negative)
[2018-10-29 17:54] LABS: HYALINE CASTS 4-10 Moderate /LPF (None Seen); MUCUS 0-3 Light strn/LPF (None Seen); SQUAMOUS >10 Many /LPF (0-3)
[2018-10-29 17:57] LABS: CRYSTALS None Seen /LPF (None Seen); URINE RBC 0-2 Rare /HPF (0-2); URINE WBC-REFLEX 0-5 Rare /HPF (0-5)
--- NOTE | 2018-10-29 18:50 | NUR ---
PATIENT HAS BEEN A/O X 4 THIS SHIFT. CONTINUES ON BARROW WORKER HELPER, TRACING NSR. BP TRENDING DOWN WITH SCHEDULED BP MEDS. PATIENT UTILIZING BIPAP THROUGHOUT THE DAY WHEN SLEEPING. O2 IN PLACE 6L/NC. PATIENT UP SBA TO BSC. URINE SENT ORDERED. PATIENT CONTINUES ON IV ANTIBIOTICS AND IV STEROIDS. NPC NOTED. HAD VENOUS DOPPLER COMPLETED. UNABLE TO COMPLETE CTA DUE TO BODY HABITUS, DR ANN NOTIFIED. PATIENT REFUSED MOST TURNS THIS SHIFT, EDUCATION PROVIDED REGARDINGS SKIN INTEGRITY. BLOOD SUGARS COVERED WITH INSULIN. HOURLY ROUNDING COMPLETED. CALL LIGHT WITHIN REACH. WILL CONTINUE WITH PLAN OF CARE.
[2018-10-29 21:00] VITALS: BP 164/98
[2018-10-30] VITALS: BP 147/92
[2018-10-30 04:00] VITALS: BP 140/91
[2018-10-30 04:26] LABS: ABSOLUTE LYMPHOCYTES 0.6 thou/uL (0.8-5.3); ABSOLUTE MONOCYTES 0.3 thou/uL (0.0-1.2); ABSOLUTE NEUTROPHILS 10.9 thou/uL (1.6-8.1); BASOPHILS 0.1 %; HEMATOCRIT 39.4 % (37.0-47.0); HEMOGLOBIN 11.9 gm/dL (12.0-15.0); LYMPHOCYTES 4.7 %; MCH 24.3 pg (26.0-34.0); MCHC 30.2 g/dL (28.0-37.0); MCV 80.3 fL (80.0-100.0); MONOCYTES 2.9 %; MPV 8.4 fl. (7.2-11.1); NUCLEATED RBCS 0 /100WBC; PLATELET COUNT* 318 thou/uL (150-400); POLYS 92.3 %; RBC 4.91 mil/uL (4.20-5.00); RDW-CV 20.4 % (10.5-14.5); WBC 11.8 thou/uL (4.0-11.0)
[2018-10-30 04:36] LABS: CALCIUM 9.1 mg/dL (8.5-10.1); CREATININE 1.6 mg/dL (0.6-1.3); MAGNESIUM 2.2 mg/dL (1.8-2.4)
[2018-10-30 05:16] LABS: POTASSIUM 4.4 mmol/L (3.5-5.1)
--- NOTE | 2018-10-30 05:30 | NUR ---
PATIENT SLEPT MOST OF THE NIGHT. PATIENT REMAINS ON 6L HFNC WHILE AWAKE AND BIPAP WHILE SLEEPING. PATIENT REMAINS SR ON THE MONITOR. WILL CONTINUE TO MONITOR.
[2018-10-30 08:45] VITALS: BP 194/110
--- NOTE | 2018-10-30 08:51 | CON ---
[address] [address] CONSULTATION Name: YOUNG JACOBSEN Lianne Room: [address] IN M.R.#: [id number] Admission: 10/28/18 Attend Phys: Kelvin Sandoval MD Discharge: Date of : 70 Report #: [id number] THIS REPORT FOR: //name// CC: Kelvin Sandoval FAM unknown [facility] REASON FOR CONSULTATION: Respiratory failure, asthma. HISTORY OF PRESENT ILLNESS: This is a 48-year-old female patient with a history of asthma, obstructive sleep apnea, obesity hypoventilation, on CPAP at home and oxygen 2-4 liters. She was actually at this facility back in July with asthma exacerbation. She was discharged home. According to her, since then she was admitted one night at [facility] and sent home with a steroid taper. She continued since then she had difficulty breathing with cough with occasional sputum production and some wheezes. She feels exertional dyspnea has become more progressive with less and less of ordinary activities. She remains morbidly obese. She tried to increase her oxygen at home, but she was not clear how high; at one point, she told me she is 4 liters. She has some cough, wheezes, occasional sputum production. She denied any sick contact. She denied any sore throat or nasal obstruction. She reported that she is compliant with her CPAP at home. She denied any calf tenderness. She denied any lower extremity edema. She denied any chest pain. PAST MEDICAL AND SURGICAL HISTORY: Morbid obesity with a weight almost 575 pounds, obstructive sleep apnea, CPAP at home on 2 liter oxygen 29/03. She had previous hernia surgery. She has diabetes mellitus, carpal tunnel surgery, multiple colon surgeries. She has hypertensive heart disease, hyperlipidemia. She is post-cholecystectomy. SOCIAL HISTORY: No significant smoking history, does not drink alcohol, does not abuse drugs. MEDICATIONS: Home medications reviewed per documentation within [facility]. Also current medications reviewed. ALLERGIES: LATEX, SULFA, MORPHINE, TAPE, TETANUS. FAMILY HISTORY: Reviewed with the patient, noncontributory. REVIEW OF SYSTEMS: Twelve-point review of systems reviewed with the patient and negative other than as mentioned above. PHYSICAL EXAMINATION: [place] [address] CONSULTATION Name: YOUNG JACOBSEN Room: [address]#: [id number] Admission: 10/28/18 Attend Phys: Kelvin Sandoval MD Discharge: Date of : 70 Report #: [id number] VITAL SIGNS: She was on 5 liters oxygen with O2 saturation more than 90%, blood pressure 160/94, pulse rate of 20, temperature 36.7. GENERAL: Morbidly obese lady with a BMI of 84.7, sitting in bed. HEAD: Normocephalic, atraumatic. EYES: Pupils are reactive to light. ORAL CAVITY: Moist mucous membrane. Mallampati of 2-3. Full range of movement. NECK: No masses felt, although thick neck. Trachea central. CHEST: Diminished air movement bilaterally, prolonged expiratory phase. No definite added sounds, but truly hard to tell given the body habitus. HEART: S1, S2. No murmur. Again, distant sounds. ABDOMEN: Obese, soft, lax, nontender, no masses felt. EXTREMITIES: Lower extremity, trace edema, no calf tenderness. SKIN: Normal for age and race. No rash. Multiple clothes in her body, in the upper neck and the upper back and neck. PSYCHIATRIC: Mood and affect slightly anxious. NEUROLOGIC: Moving 4 extremities spontaneously. No focal weakness. LABORATORY DATA: Her chest x-ray upon hospitalization showed possible pulmonary edema with pulmonary venous congestion with cardiomegaly and perihilar fullness. IMPRESSION: 1. Fjqoa-ar-fihfhjy respiratory failure. Baseline obstructive sleep apnea, on CPAP and 2 liters oxygen. 2. Obstructive sleep apnea. 3. History of asthma. 4. Morbid obesity. 5. Pulmonary infiltrate, possible mediastinal lymphadenopathy. PLAN: At this point, the patient will be treated for asthma exacerbation with Solu-Medrol and scheduled nebulization treatment. We will order CPAP for her to use during sleep. During the previous hospitalization, D-dimer was not elevated. However, we will check with CT scan if she is within the limits of the CT scan machine, then we can proceed with CTA for both evaluation of the mediastinal area and rule out pulmonary embolus. Otherwise, we will do Doppler ultrasound with V/Q scan. Again, there is potentially limit weight on the V/Q scan. Her last echocardiogram during the hospitalization in July the EF was 60% with suggested impaired left ventricular relaxation. Thank you for the consult. Discussed with RN. <ELECTRONICALLY SIGNED> By: Klaus Hagan MD 10/30/18 0851 0927 [id number] Hagan MD /nt
[2018-10-30 12:22] VITALS: BP 149/85
[2018-10-30 15:00] VITALS: BP 163/93
--- NOTE | 2018-10-30 19:28 | NUR ---
PATIENT A/O X 4 THIS SHIFT. CONTINUES ON REPAIR ARMATURE WINDER HELPER, TRACING NSR. O2 IN PLACE, SATS IN LOWER 90s. SALINE LOCK PATENT, CONTINUES ON IV LASIX AND IV STEROIDS. PATIENT UP TO BSC WITH SBA. REDNESS UNDER RIGHT BREAST MUCH IMPROVED FROM ADMISSION, NYSTATIN POWDER CONTINUES. BLOOD SUGARS MONITORED AND INSULIN GIVEN ORDERED. PATIENT HAD ULTRASOUND COMPLETED THIS SHIFT. APPETITE GREAT. REFUSING TURNS. HOULRY ROUNDING COMPLETED. CALL LIGHT WITHIN REACH. WILL CONTINUE WITH PLAN OF CARE.
[2018-10-30 21:00] VITALS: BP 155/88
[2018-10-31] VITALS: BP 148/87
[2018-10-31 04:00] VITALS: BP 151/98
[2018-10-31 04:22] LABS: ABSOLUTE LYMPHOCYTES 0.5 thou/uL (0.8-5.3); ABSOLUTE MONOCYTES 0.3 thou/uL (0.0-1.2); ABSOLUTE NEUTROPHILS 10.2 thou/uL (1.6-8.1); BASOPHILS 0.1 %; HEMOGLOBIN 11.8 gm/dL (12.0-15.0); LYMPHOCYTES 4.1 %; MCH 24.5 pg (26.0-34.0); MCHC 30.2 g/dL (28.0-37.0); MCV 81.1 fL (80.0-100.0); MONOCYTES 2.9 %; MPV 8.4 fl. (7.2-11.1); NUCLEATED RBCS 0 /100WBC; PLATELET COUNT* 294 thou/uL (150-400); POLYS 92.9 %; RBC 4.81 mil/uL (4.20-5.00); RDW-CV 20.9 % (10.5-14.5)
[2018-10-31 04:50] LABS: CALCIUM 9.2 mg/dL (8.5-10.1); CREATININE 1.6 mg/dL (0.6-1.3); MAGNESIUM 2.3 mg/dL (1.8-2.4); POTASSIUM 4.2 mmol/L (3.5-5.1)
--- NOTE | 2018-10-31 07:38 | NUR ---
PATIENT SLEPT MOST OF THE NIGHT. IV REMAINS SALINE LOCKED. PATIENT REMAINS ON 6L HFNC AND BIPAP AT NIGHT. LUNGS REMAIN WHEEZY. WILL CONTINUE TO MONITOR.
[2018-10-31 07:55] VITALS: BP 151/91
--- NOTE | 2018-10-31 12:07 | NUR ---
SW met with pt to complete initial assessment, introduce self and SW role. Pt alert, oriented. Pt now lives at home alone but does still have in home caregivers. Pt has DME at home and home O2 through [facility]. Pt expressed possible need for some of her equipment to be replaced. Pt also wondered if she might need a nebulizer at dc? SW to continue to follow to assist with safe dc planning.
--- NOTE | 2018-10-31 16:27 | NUR ---
PATIENT REFUSING TO TURN WITH NURSING HELP, STATES SHE TURNS SELF IN BED. IV REPLACED BY INFUSION WITH ULTRASOUND TO RIGHT FOREARM. SCHED LASIX AND STEROIDS REMAIN. INSULIN INCREASED THIS AFTERNOON BLOOD SUGARS INCREASED. PATIENT AWARE OF PLAN OF CARE. REMAINS ON 6L NC.
[2018-10-31 16:49] VITALS: BP 140/70
[2018-11-01 00:58] VITALS: BP 141/78
[2018-11-01 03:41] VITALS: BP 148/95
--- NOTE | 2018-11-01 05:03 | NUR ---
PATIENT SLEPT WELL DURING THIS SHIFT. PT WITH O2 @ 6 LITERS PER NASAL CANNULA AND IS ON BIPAP AT NIGHT. PT SAID SHE IS ABLE TO TURN HERSELF IN BED AND DOES NOT NEED ASSISTANCE. LIDOCAINE GEL PLACED ON BOTH KNEES FOR PAIN RELIEF. PT DENIES NEEDS AT THIS TIME. FREQUENTLY USED ITEMS AND CALL LIGHT WITHIN REACH WILL CONTINUE TO MONITOR.
[2018-11-01 05:11] LABS: CALCIUM 9.1 mg/dL (8.5-10.1); CREATININE 1.5 mg/dL (0.6-1.3); MAGNESIUM 2.3 mg/dL (1.8-2.4); POTASSIUM 4.1 mmol/L (3.5-5.1)
[2018-11-01 07:40] VITALS: BP 168/93
--- NOTE | 2018-11-01 12:50 | NUR ---
Nutrition: Pt seen for high BMI. Wt: 590#. H/o morbid OBE, HTN. She will go home on CPAP/bipap. She takes insulin at h ome. On steroids. Eating 100% of CHO controlled diet. She stated the food was good. She declined any info or nutrition education. She was on house phone and cell phone at same time during visit. She did not want to get off the phones. It was a brief discussion. She stated no needs, no questions, no concerns. Mild risk. May benefit from outpatient consultation with bariatric surgery. OBE class III R/T etiology unknown AEB BMI 82.3.
[2018-11-01 16:20] VITALS: BP 144/86
--- NOTE | 2018-11-01 17:17 | NUR ---
PATIENT A&O X4, MOOD APPROPRIATE ALL THROUGH SHIFT. PATIENT COMPLAINED OF PAIN ON THE KNEE BILAT AND ON NECK. PATIENT PERFORMED SELFCARE. PATIENT HAD BM IN THE AM. PATIENT RECEIVED 50 UNITS REG INSULIN + 50 UNITS LANTUS FOR BG OF 175 IN THE AM. PATIENT RECEIVED 50 UNITS REG INSULIN FOR BG [address] DUARTE ADJUSTED BIPAP TO 35. PATIENT TO HAVE BIPAP HS AND DURING NAP PER DR'S ORDER. PATIENT HAS SOB WITH ACTIVITY. PATIENT ON 5L NC. URINE CULTURE SHOWED ENTEROCOCUS FAECELIS, DR CHACON PRESCRIBED KEFLEX BID. PATIENT STILL SL RFA. PATIENT TO GET LAST STEROID IV TONIGHT, TO SWITCH TO PO STEROID TOMORROW.
[2018-11-01 20:00] VITALS: BP 152/50
[2018-11-02 04:15] VITALS: BP 142/48
[2018-11-02 07:30] VITALS: BP 166/98
[2018-11-02 11:34] LABS: HEMATOCRIT 44.4 % (37.0-47.0); HEMOGLOBIN 13.7 gm/dL (12.0-15.0); MCHC 30.9 g/dL (28.0-37.0); MCV 80.7 fL (80.0-100.0); MPV 8.5 fl. (7.2-11.1); NUCLEATED RBCS 0 /100WBC; PLATELET COUNT* 336 thou/uL (150-400); RDW-CV 20.1 % (10.5-14.5); WBC 10.1 thou/uL (4.0-11.0)
[2018-11-02 11:39] LABS: CALCIUM 9.4 mg/dL (8.5-10.1); CREATININE 1.5 mg/dL (0.6-1.3); MAGNESIUM 2.4 mg/dL (1.8-2.4); POTASSIUM 3.3 mmol/L (3.5-5.1)
[2018-11-02 13:10] LABS: ABSOLUTE LYMPHOCYTES 0.5 thou/uL (0.8-5.3); ABSOLUTE MONOCYTES 0.4 thou/uL (0.0-1.2); ABSOLUTE NEUTROPHILS 9.2 thou/uL (1.6-8.1); PLATELET ESTIMATE ADEQUATE
[2018-11-02 15:09] VITALS: BP 138/67
--- NOTE | 2018-11-02 17:14 | NUR ---
PATIENT PLACED ON 2000ML FLUID RESTRICTION, LASIX GIVEN ORDERED. BIPAP SETTINGS CHANGED PER PULMONARY AND ORDERS FOR HOME BIPAP OR TRILOGY UNIT. UP TO BSC TO VOID. PATIENT TOOK SHOWER TODAY. REMAINS ON 5L NC. POTASSIUM REPLACED FOR VALUE OF 3.3, REDRAW AT 1900.
[2018-11-02 20:00] VITALS: BP 134/78
[2018-11-03 04:20] VITALS: BP 128/72
[2018-11-03 04:43] LABS: ABSOLUTE LYMPHOCYTES 1.4 thou/uL (0.8-5.3); ABSOLUTE MONOCYTES 1.1 thou/uL (0.0-1.2); ABSOLUTE NEUTROPHILS 5.8 thou/uL (1.6-8.1); ANION GAP < 0 mmol/L (7-16); BUN 43 mg/dL (7-18); CALCIUM 9.2 mg/dL (8.5-10.1); CHLORIDE 101 mmol/L (98-107); CREATININE 1.6 mg/dL (0.6-1.3); EOSINOPHILS 0.1 %; GLUCOSE 67 mg/dL (70-99); HEMATOCRIT 39.7 % (37.0-47.0); HEMOGLOBIN 12.3 gm/dL (12.0-15.0); MCH 24.8 pg (26.0-34.0); MCV 79.8 fL (80.0-100.0); MONOCYTES 12.8 %; MPV 8.8 fl. (7.2-11.1); NUCLEATED RBCS 0 /100WBC; PLATELET COUNT* 275 thou/uL (150-400); POLYS 70.1 %; RBC 4.97 mil/uL (4.20-5.00); RDW-CV 20.4 % (10.5-14.5); SODIUM 144 mmol/L (136-145); WBC 8.3 thou/uL (4.0-11.0)
[2018-11-03 05:10] LABS: CO2 45 mmol/L (21-32)
--- NOTE | 2018-11-03 06:23 | NUR ---
PATIENT SLEPT WELL DURING THIS SHIFT. PT ON O2 @ 5LITERS PER NASAL CANNULA. PT WEARS BIPAP AT NIGHT. PT WITH LOW POTASSIUM THIS AM, IS ON ELECTROLYTE PROTOCAL AND FIRST OF THREE DOSES GIVEN. PT WITH LAB BLOOD SUGAR THIS AM OF 67, PEANUT BUTTER, GR CRACKERS AND ORANGE JUICE GIVEN. CO2 LAB THIS AM WAS 45. [email or web address] MESSAGE SENT TO DR ROTH; NO NEW ORDERS. PT ALREADY HAS ABG'S ORDERED FOR THIS AM. PT UP TO BSC BY HERSELF, VOIDS YELLOW URINE. PT ABLE TO MOVE HERSELF IN BED WITH USE OF TRAPEZE. PT ENCOURAGED TO GET OFF OF BACKSIDE AND LAY ON HER SIDE. PT STATED AT TIMES SHE WILL LAY ON SIDE. PT IN SR ON CYLINDER DYER. VITALS WNL. FREQUENTLY USED ITEMS AND CALL LIGHT WITHIN REACH. SIDERAILS UPX2. WILL CONTINUE TO MONITOR.
[2018-11-03 08:30] VITALS: BP 150/93
[2018-11-03 09:29] LABS: BE 14.3 mmol/L (-2 to +3); pH 7.363 (7.340-7.450)
[2018-11-03 09:34] LABS: PCO2 78.3 mmHg (35.0-45.0)
[2018-11-03 11:00] VITALS: BP 115/67
--- NOTE | 2018-11-03 11:19 | NUR ---
MERCHANDISING SPECIALIST RECIEVED A CONSULT TO ASSIST WITH ARRANGING TRIOGY. D/C MRI SPECIAL PROCEDURES TECHNOLOGIST SPOKE TO [facility] WITH TERI TO INFORM OF DME REFERRAL. [facility] PROVIDED TILOGY ORDER, AND MEDICAID DME ORDER. BOTH FORMS ARE ON THE CHART AND AWAITING PULM (DR GARCIA) SIGNATURE. D/C MRI SPECIAL PROCEDURES TECHNOLOGIST INFORMED RN OF THIS INFO AND THAT THE FORMS ARE IN THE FRONT OF THE PATIENT'S CHART. WHEN THE FORMS ARE COMPLETED THEY WILL NEED TO BE FAXED TO [facility] WITH TER[facility]. CM WILL REMAIN AVIALABLE TO ASSIST AND FOLLOW NEEDED. [facility] FAX #: [phone]
[2018-11-03 17:05] VITALS: BP 147/89
--- NOTE | 2018-11-03 18:14 | NUR ---
PATIENT RESTING IN BED. PATIENT IS UP TO COMMODE AD PARI. PATIENT HAS HAD COMPLAINTS TO RIGHT KNEE AND RIGHT BUTTOCK, PARTIAL RELIEF PROVIDED WITH MEDICATION. PATIENT ENCOURAGED TO SIT UP IN CHIAR. PATIENT HAS VERY GOOD APPETITE. PATIENT DENIES ANY TROUBLE BREATHING. NO OTHER CONCERNS/COMPLAINTS VOICED. CALL LIGHT WITHIN REACH. WILL CONTINUE TO MONITOR.
[2018-11-03 20:00] VITALS: BP 105/55
[2018-11-04] VITALS: BP 142/61
[2018-11-04 04:18] LABS: HEMATOCRIT 40.3 % (37.0-47.0); MCH 23.9 pg (26.0-34.0); MCHC 29.7 g/dL (28.0-37.0); MCV 80.6 fL (80.0-100.0); MPV 8.7 fl. (7.2-11.1); RDW-CV 20.5 % (10.5-14.5); WBC 7.7 thou/uL (4.0-11.0)
[2018-11-04 04:30] LABS: CALCIUM 8.9 mg/dL (8.5-10.1); CREATININE 1.7 mg/dL (0.6-1.3); MAGNESIUM 2.5 mg/dL (1.8-2.4)
--- NOTE | 2018-11-04 04:43 | NUR ---
ASSUMED CARE OF PT AT 1900 PT ALERT AND ORIENTED X4 VS AND ASSESSMENT STABLE PTS 2100BG 208 GAVE PARTIAL DOSE OF LANTUS 15 UNITS PREVIOUS SHIFT STATED PT HAD BEEN GETTING. AT 0221 PT TOLD RT NISHI THAT SHE WASNT FEELING WELL AND PT REPORTEDLY DIAPHORETIC AND CLAMMY BG 35 GAVE PRN D50 AND JUICE RECHECKED AT 0232 BG 100 VSS PT STATED SHE WAS FEELING BETTER GAVE PT JUANA CRACKERS AND MILK RECHECKED AT 0339 BG 117. PT GIVEN SCHEDULED PAIN MEDS AND PRN IBUPROFEN X 1 THEN SLEPT. WILL CONTINUE PLAN OF CARE.
[2018-11-04 07:50] VITALS: BP 134/75
[2018-11-04 11:00] VITALS: BP 136/71
--- NOTE | 2018-11-04 11:18 | NUR ---
CLAIM INSPECTOR SPOKE TO DR DUARTE AND HE COMPLETED THE TRILOGY NON-INVASIVE VENMTILATION FORM, AND [facility] EXCEPTION REQUEST FORM. D/C GIS ANALYST DEVELOPER FAXED COMPLETED FORMS TO [facility]. D/C GIS ANALYST DEVELOPER AWAITING A RETURN CALL FROM [facility] TO DETERMINE IF THE PATIENT WILL QUALIFY FOR THE TRILOGY. CM WILL REMAIN AVIALABLE TO ASSIST AND FOLLOW NEEDED.
[2018-11-04 15:00] VITALS: BP 133/80
--- NOTE | 2018-11-04 18:29 | NUR ---
PATIENT HAS BEEN A/O X 4 THIS SHIFT. CONTINUES ON PROFESSOR COMPUTER SCIENCE TRACING NSR. CONTINUES ON O2 AT 4L/NC. SALINE LOCK PATENT. BLOOD SUGARS MONITORED THIS SHIFT AND INSULIN ADJUSTED PER DR SEGUNDO. PATIENT WORKED WITH PHYSICAL THERAPY THIS SHIFT, AMBULATED IN HALLS. UP TO [facility] WITH MINIMAL ASSIST. POTASSIUM REPLACED THIS SHIFT, TO HAVE LABS IN AM. PATIENT HOPEFUL TO BE DISCHARGED SOON. HOURLY ROUNDING COMPLETED. CALL LIGHT WITHIN REACH. WILL CONTINUE WITH PLAN OF CARE.
[2018-11-04 20:00] VITALS: BP 154/93
[2018-11-05] VITALS: BP 123/63
[2018-11-05 04:00] VITALS: BP 126/77
[2018-11-05 05:26] LABS: HEMATOCRIT 39.5 % (37.0-47.0); HEMOGLOBIN 12.1 gm/dL (12.0-15.0); MCH 24.7 pg (26.0-34.0); MCHC 30.6 g/dL (28.0-37.0); MCV 80.6 fL (80.0-100.0); MPV 8.8 fl. (7.2-11.1); RBC 4.9 mil/uL (4.20-5.00); RDW-CV 20.9 % (10.5-14.5); WBC 8.3 thou/uL (4.0-11.0)
[2018-11-05 05:50] LABS: ALBUMIN 2.7 g/dL (3.4-5.0); ALKALINE PHOSPHATASE 98 U/L (46-116); BUN 40 mg/dL (7-18); CHLORIDE 100 mmol/L (98-107); CREATININE 1.5 mg/dL (0.6-1.3); GLUCOSE 111 mg/dL (70-99); MAGNESIUM 2.5 mg/dL (1.8-2.4); SGOT 17 U/L (15-37); SGPT 48 U/L (30-65); SODIUM 144 mmol/L (136-145); TOTAL BILIRUBIN 0.3 mg/dL (<0.1-1.0); TOTAL PROTEIN 6.1 g/dL (6.4-8.2)
--- NOTE | 2018-11-05 06:00 | NUR ---
PT SLEPT ON AND OFF THIS SHIFT. ASSESSMENT DOCUMENTED. MEDS GIVEN PER E-NOV. IV PATENT. PAIN MEDS GIVEN PER E-NOV. PT UP SELF TO BSC. BIPAP WORN WHILE SLEEPING. WILL CONTINUE WITH PLAN OF CARE.
[2018-11-05 06:04] LABS: CO2 > 45 mmol/L (21-32)
[2018-11-05 07:40] VITALS: BP 145/69
--- NOTE | 2018-11-05 10:26 | NUR ---
Following for d/c planning needs. Pt received trilogy from [place] yesterday. Spoke with pt and she said she needs ride home. She said she is able to walk to get into the car. Called [facility] and made arrangements for van transportation between [phone] today. Bow Maker Machine Tender will call unit upon arrival. Pt said she has a portable oxygen tank in her room for trip home. No other needs identified. [facility] [phone]; trip #[id number]
[2018-11-05] MEDS ORDERED: CIPRO500 MG PO (11:06)
[2018-11-05 11:11] VITALS: BP 145/69
--- NOTE | 2018-11-05 12:09 | NUR ---
PT O2 ON 4L NC, PT 2-4L AT HOME. TRILOGY FOR HOME AT BEDSIDE. PATIENT SOB WITH ACTIVITY. IV DC'D. PT DISCHARGED TO HOME, VERBALIZES UNDERSTANDING OF PAPERWORK AND SCRIPT. PT STATED TO CM "I DONT HAVE ANYONE TO PICK ME UP" CM NOTIFIED [facility] FOR TRANSPORTATION, NO APPROPRIATE CARS AVAILABLE TO TRANSPORT PATIENT At THIS TIME. AMBULANCE SET UP THROUGH [facility], HERE TO PLAYER MANAGER PATIENT. EMS SPOKE WITH PATIENT ABOUT POSSIBLE OF TRANSPORTATION VIA EMS, PATIENT REFUSED EMS TRANSPORTATION. PATIENT ABLE TO GET A HOLD OF FAMILY FOR A RIDE. PATIENT TAKEN OUT VIA WHEELCHAIR WITH STAFF AND All BELONGINGS.
== END 2018-11-05 12:16 | disposition home or self-care (01) | DRG 291 ==
LOC: M.ERS 10:32 → M.TBA-ER 11:34 → M.3W 11:34 → M.TBA-ER 19:40 → M.3W 19:40
PROVIDERS: Family Medicine; Internal Medicine; Internal Medicine Pulmonary Disease; ADMIT Internal Medicine
PROC: 5A09357 Assistance with Respiratory Ventilation, Less than 24 Consecutive Hours, Continuous Positive Airway Pressure (ICD-10-PCS; principal; 2018-10-29)
PROC: 5A09357 Assistance with Respiratory Ventilation, Less than 24 Consecutive Hours, Continuous Positive Airway Pressure (ICD-10-PCS; 2018-10-31)
PROC: 5A09357 Assistance with Respiratory Ventilation, Less than 24 Consecutive Hours, Continuous Positive Airway Pressure (ICD-10-PCS; 2018-11-01)
PROC: 5A09357 Assistance with Respiratory Ventilation, Less than 24 Consecutive Hours, Continuous Positive Airway Pressure (ICD-10-PCS; 2018-11-02)
DX: I13.0 Hypertensive heart and chronic kidney disease with heart failure and stage 1 through stage 4 chronic kidney disease, or unspecified chronic kidney disease (principal); J96.21 Acute and chronic respiratory failure with hypoxia; I50.33 Acute on chronic diastolic (congestive) heart failure; J96.22 Acute and chronic respiratory failure with hypercapnia; J45.901 Unspecified asthma with (acute) exacerbation; E66.2 Morbid (severe) obesity with alveolar hypoventilation; Z68.45 Body mass index [BMI] 70 or greater, adult; B37.0 Candidal stomatitis; B37.49 Other urogenital candidiasis; N17.9 Acute kidney failure, unspecified; J98.11 Atelectasis; J44.9 Chronic obstructive pulmonary disease, unspecified; G47.33 Obstructive sleep apnea (adult) (pediatric); N18.3 Chronic kidney disease, stage 3 (moderate); E11.22 Type 2 diabetes mellitus with diabetic chronic kidney disease; E78.5 Hyperlipidemia, unspecified; I27.20 Pulmonary hypertension, unspecified; T38.0X5A Adverse effect of glucocorticoids and synthetic analogues, initial encounter; Y92.89 Other specified places as the place of occurrence of the external cause; Z90.49 Acquired absence of other specified parts of digestive tract; Z99.81 Dependence on supplemental oxygen; Z79.51 Long term (current) use of inhaled steroids; Z79.4 Long term (current) use of insulin; Z79.82 Long term (current) use of aspirin; Z79.899 Other long term (current) drug therapy; Z88.5 Allergy status to narcotic agent; Z88.2 Allergy status to sulfonamides; Z88.7 Allergy status to serum and vaccine; Z88.1 Allergy status to other antibiotic agents; Z91.040 Latex allergy status; Z82.49 Family history of ischemic heart disease and other diseases of the circulatory system; Z82.5 Family history of asthma and other chronic lower respiratory diseases

== ENCOUNTER 2019-12-15 13:04 | Inpatient (IN) | payer MEDICAID ==
[2019-12-15] VITALS (17 sets, daily range): BP systolic 146–191; BP diastolic 79–122
[~2019-12-15] VITALS: Ht 180.3 cm; Wt 235.9 kg
[~2019-12-15 13:04] MED LIST changes: -ATORVASTATIN CA40 MG PO; +CIPRO500 MG PO; -CLONIDINE0.1 PO; +FLONASE 0.05%50 MCG NASAL; -HUMALOG100 UNIT/1 SQ; +HUMALOG100 UNIT/1 SUBQ; +LIPITOR40 MG PO; +VITAMIN D3250 MC1 PO; -VITAMIN D3400 UNIT PO; +ZANAFLEX2 M1 PO; -ZANAFLEX2 MG PO
[2019-12-15 13:16] LABS: BE -1.9 mmol/L (-2 to +3); pH 7.301 (7.340-7.450)
[2019-12-15 13:18] LABS: PCO2 51.9 mmHg (35.0-45.0)
[2019-12-15 13:54] LABS: ABSOLUTE BASOPHILS 0.1 thou/uL (0.0-0.2); ABSOLUTE EOSINOPHILS 0.6 thou/uL (0.0-0.7); ABSOLUTE MONOCYTES 0.7 thou/uL (0.0-1.2); ABSOLUTE NEUTROPHILS 7.4 thou/uL (1.6-8.1); BASOPHILS 0.6 %; EOSINOPHILS 6.1 %; HEMATOCRIT 36.2 % (37.0-47.0); HEMOGLOBIN 11.7 gm/dL (12.0-15.0); MCH 26.5 pg (26.0-34.0); MCHC 32.2 g/dL (28.0-37.0); MCV 82.3 fL (80.0-100.0); MONOCYTES 6.8 %; MPV 8.2 fl. (7.2-11.1); NUCLEATED RBCS 0 /100WBC; PLATELET COUNT* 261 thou/uL (150-400); POLYS 76.5 %; RBC 4.39 mil/uL (4.20-5.00); RDW-CV 18.6 % (10.5-14.5); WBC 9.6 thou/uL (4.0-11.0)
[2019-12-15 14:05] LABS: CALCIUM 8.2 mg/dL (8.5-10.1); CREATININE 1.6 mg/dL (0.6-1.3); INR 1.1; POTASSIUM 3.5 mmol/L (3.5-5.1); PROTIME 10.9 Seconds (9.20-11.50)
[2019-12-15 14:05] LABS: URINE BILIRUBIN NEGATIVE (Negative); URINE BLOOD TRACE (Negative); URINE CLARITY CLEAR; URINE COLOR YELLOW; URINE GLUCOSE-RANDOM 3+ (Negative); URINE KETONES NEGATIVE (Negative); URINE LEUKOCYTES-REFLEX NEGATIVE (Negative); URINE NITRITE-REFLEX NEGATIVE (Negative); URINE PROTEIN 3+ (Negative); URINE UROBILINOGEN 0.2 E.U./dl (0.2-1.0)
[2019-12-15 14:09] LABS: ALBUMIN 3.1 g/dL (3.4-5.0); MAGNESIUM 1.8 mg/dL (1.8-2.4); TOTAL BILIRUBIN 0.5 mg/dL (<0.1-1.0)
[2019-12-15 14:12] LABS: SQUAMOUS 0-3 Few /LPF (0-3); URINE RBC 0-2 Rare /HPF (0-2); URINE WBC-REFLEX 0-5 Rare /HPF (0-5)
[2019-12-15 14:13] LABS: CASTS None Seen /LPF (None Seen); CRYSTALS None Seen /LPF (None Seen); MUCUS None Seen strn/LPF (None Seen)
--- NOTE | 2019-12-15 15:47 | NUR ---
PT PLACED ON 6L NC FOR TRANSPORT. MASK PLACED ON PATIENT.
--- NOTE | 2019-12-15 17:04 | EKG ---
[place] [address] ELECTROCARDIOGRAM REPORT Name: YOUNG JACOBSEN Room: [address] ADM IN M.R.#: [id number] Admission: 12/15/19 Attend Phys: Flaco Vega, Discharge: Date of : 70 Date of Service: 12/15/19 1321 Report #: [id number] THIS REPORT FOR: //name// [facility] ED Test Date: 2019-12-15 Test Time: 13:21:24 Pat Name: YOUNG JACOBSEN Department: Room: [facility] Gender: F Net Application Support Specialist: ARTHUR : 1970 Requested By: Cecile Wild Order Number: [id number] MD: Dejan Burdick Measurements Intervals [place] Rate: 99 P: 39 VT: 203 QRS: 58 QRSD: 111 T: 60 QT: 398 QTc: 511 Interpretive Statements Sinus rhythm Borderline prolonged VT interval Low voltage, precordial leads Prolonged QT interval nonspecific st chagnes Compared to ECG 10/28/2018 10:43:12 Low QRS voltage now present Prolonged QT interval now present Electronically Signed On 12-15-2019 17:02:46 CDT by Dejan Burdick [email or web address] <ELECTRONICALLY SIGNED> By: Dejan Burdick MD, FACC 12/15/19 1702 1321 1321 Dejan Burdick MD, FAC /EPI
--- NOTE | 2019-12-15 18:45 | NUR ---
PT ADMITTED FROM ED AROUND 1545, HYPERTENSIVE, SR TO ST ON MONITOR, NC@7L- CPAP WHEN NEEDED- RESP. HELD OFF ON USE OF CPAP AT 1600, ACCUCHECKS ACHS, CARB CONTROLLED DIET, IMMOBILE, BARIATRIC BED ORDERED, KELOIDS ON SKIN- SHOULDERS-FACE- EARS- NECK, BRENNAN CATHETER, CURRENTLY NO ISOLATION.
[2019-12-15 20:22] LABS: BE 4.2 mmol/L (-2 to +3); PCO2 47.8 mmHg (35.0-45.0)
[2019-12-15 20:25] LABS: PO2 156.1 mmHg (75.0-100.0)
[2019-12-15 22:09] LABS: NT-PRO BRAIN NAT PEPTIDE 3179 pg/mL (<300)
[2019-12-16] VITALS (25 sets, daily range): BP systolic 138–190; BP diastolic 70–115
--- NOTE | 2019-12-16 02:54 | NUR ---
PATIENT'S BP ELEVATED SYSTOLIC > 170, DIASTOLIC > 110. PAGED PHYSICIAN FOR NEW ORDERS. SPOKE WITH DR. ROTH WHO GAVE ORDERS TO GIVE 0.2 MG CLONIDINE PO EARLY TO KEEP BP UNDER CONTROL. WCTM
[2019-12-16 03:15] LABS: HEMATOCRIT 35.9 % (37.0-47.0); HEMOGLOBIN 11.6 gm/dL (12.0-15.0); MCH 26.3 pg (26.0-34.0); MCHC 32.2 g/dL (28.0-37.0); MCV 81.7 fL (80.0-100.0); MPV 8.1 fl. (7.2-11.1); RBC 4.39 mil/uL (4.20-5.00); RDW-CV 18.5 % (10.5-14.5); WBC 10.5 thou/uL (4.0-11.0)
[2019-12-16 03:37] LABS: CALCIUM 8.6 mg/dL (8.5-10.1); CREATININE 1.5 mg/dL (0.6-1.3); MAGNESIUM 1.9 mg/dL (1.8-2.4); POTASSIUM 3.7 mmol/L (3.5-5.1)
--- NOTE | 2019-12-16 07:30 | NUR ---
ASSESSMENTS CHARTED. ATTEMPTED TO GET BARIBED FOR THE PATIENT. PER GYNAECOLOGICAL ONCOLOGIST, [facility] HAS NO BARIATRIC BEDS IN THE WAREHOUSE AVAILABLE FOR USE. TURNS WERE DONE TO THE BEST POSSIBLE ABILITY, HOWEVER THE PATIENT IS OBESE ENOUGH THAT THERE IS NO ROOM IN THE BED TO MOVE OR TURN THE PATIENT EFFECTIVELY. PATIENT ALTERNATED CPAP AND NC THROUGHOUT THE NIGHT, BLOOD GLUCOSE ELEVATED. PATIENT'S BP STABILIZING WITH ADDITIONAL MEDS GIVEN OVERNIGHT. SEE PREVIOUS NOTE FOR DETAILS. NURSING STAFF QUEENIE
--- NOTE | 2019-12-16 14:41 | NUR ---
PT SAT AT THE EDGE OF THE BED, STB ASSIST. PARTIAL BED BATH GIVEN. BRENNAN'S CATH OUT. PT VOIDED POST CATH OUT PER BSC. WALKED FEW STEPS WIHT THE HELP OF A WALKER. BP COMING DOWN. VSS.
[2019-12-17] VITALS: BP 149/79
[2019-12-17 04:00] VITALS: BP 123/69
--- NOTE | 2019-12-17 05:24 | NUR ---
ASSUMED PT CARE AT APPROX 1930. PT IS AWAKE AND ORINTED X4. MUSEUM INFORMATICS SPECIALIST IS TRACING SR. ASSESSMENT DONE AND CHARTED. NO DESATURATIONS NOTED ON 4L OF O2/NC. PT WEARS CPAP AT HS. NO ACUTE CHANGES OVERNIGHT. PAIN MEDS GIVEN PER MAR FOR BLE PAIN-WITH PARTIAL RELIEF. WILL CONTINUE TO MONITOR. HIGH FALL PRECAUTIONS IN PLACE. CALL LIGHT WITHIN REACH.
[2019-12-17 06:11] LABS: CALCIUM 8.5 mg/dL (8.5-10.1); CREATININE 1.7 mg/dL (0.6-1.3); MAGNESIUM 2.2 mg/dL (1.8-2.4); POTASSIUM 3.3 mmol/L (3.5-5.1)
[2019-12-17 12:37] VITALS: BP 153/88
[2019-12-17 15:49] VITALS: BP 150/94
[2019-12-17 20:00] VITALS: BP 142/78
[2019-12-18 00:10] VITALS: BP 148/70
[2019-12-18 04:34] VITALS: BP 121/61
[2019-12-18 04:39] LABS: CALCIUM 8.1 mg/dL (8.5-10.1); CREATININE 1.9 mg/dL (0.6-1.3); MAGNESIUM 2.1 mg/dL (1.8-2.4); POTASSIUM 3.5 mmol/L (3.5-5.1)
--- NOTE | 2019-12-18 06:14 | NUR ---
Shift uneventful. Pt is aox4, running SR w/ PVCs on telemetry, respirations are even and unlabored on 4 L NC when awake and CPAP when asleep.
[2019-12-18 08:00] VITALS: BP 173/95
--- NOTE | 2019-12-18 10:16 | NUR ---
Pt discharging to home today. Pt resides at home alone, normally independent. DC transport arranged through [facility] [phone] trip #[id number], they will p/u between 1-4pm. Updated nurse, Pt aware.
[2019-12-18 11:11] VITALS: BP 173/95
[2019-12-18 11:30] VITALS: BP 146/69
[2019-12-18] MEDS ORDERED: CEFDINIR300 MG PO (12:37)
--- NOTE | 2019-12-18 13:33 | NUR ---
ASSUMED PT CARE AT 0730. ASSESSMENT COMPLETED CHARTED. ABLE TO MAKE NEEDS KNOWN. UP WITH ASSIST TO BSC. C/O KNEE PAIN AND GAVE PRN PAIN MEDS NEEDED. PT DISCHARGE APPROVED AND WENT OVER DISCHARGE WITH PT INCLUDING MEDICATION. HEART MONITOR AND IV REMOVED. O2 AT 3L, LEFT AROUND 1320 WITH ALL BELONGINGS TO TRANSPORT'S COMPANY CAR. NO COMMENTS, QUESTIONS, OR CONCERNS NOTED.
--- NOTE | 2019-12-18 15:36 | 2DMMODE ---
[place] [address] 2 D/M-MODE ECHOCARDIOGRAM Name: YOUNG JACOBSEN Room: [address] IN .R.#: [id number] Admission: 12/15/19 Attend Phys: Flaco Vega, Discharge: 12/18/19 Date of : 70 Date of Service: 12/18/19 1535 Report #: [id number] THIS REPORT FOR: cc: [facility] - Clinic physician unknown [facility] - Clinic physician unknown Eagle Hill MD [facility] ~ APPROVED REPORT Study performed: 12/18/2019 09:51:37 EXAM: Comprehensive 2D, Doppler, and color-flow Echocardiogram Patient Location: In-Patient Room #: [facility] Status: 3 BSA: 3.16 HR: 65 bpm BP: 121/61 mmHg Rhythm: NSR Other Information Study Quality: Fair Technically limited study due to body habitus, no apical views obtainable. Indications Congestive Heart Failure Dyspnea Hypertension/HDD 2D Dimensions IVSd: 12.37 (7-11mm) LVOT Diam: 22.25 (18-24mm) LVDd: 60.67 mm PWd: 10.03 (7-11mm) Ascending Ao: 37.74 (22-36mm) LVDs: 43.58 (25-40mm) Aortic Root: 35.69 mm Pulmonary Valve PV Peak Mendez.: 0.98 m/s PV Peak Gr.: 3.82 mmHg Left Ventricle The left ventricle is normal size. There is normal LV segmental wall motion. Moderate concentric left ventricular hypertrophy. Left ventricular systolic function is moderately decreased. LVEF is 35-40%. This study is not technically [place] [address] 2 D/M-MODE ECHOCARDIOGRAM Name: YOUNG JACOBSEN Room: [address] IN ..#: [id number] Admission: 12/15/19 Attend Phys: Flaco Vega, Discharge: 12/18/19 Date of : 70 Date of Service: 12/18/19 1535 Report #: [id number] of the LV diastolic function. Right Ventricle The right ventricle is normal size. The right ventricular systolic function is normal. Atria Left atrium is mildly dilated. The right atrium size is normal. Aortic Valve The aortic valve is normal in structure. No aortic regurgitation is present. There is no aortic valvular stenosis. Mitral Valve There is mitral annular calcification. There is no mitral valve regurgitation noted. No evidence of mitral valve stenosis. Tricuspid Valve The tricuspid valve is normal in structure. There is no tricuspid valve regurgitation noted. Pulmonic Valve The pulmonary valve is normal in structure. There is no pulmonic valvular regurgitation. Great Vessels The aortic root is normal in size. IVC is normal in size and collapses >50% with inspiration. Pericardium There is no pericardial effusion. <Conclusion> Moderate concentric left ventricular hypertrophy. Left ventricular systolic function is moderately decreased. LVEF is 35-40%. The right ventricle is normal size. Left atrium is mildly dilated. The right atrium size is normal. The aortic valve is normal in structure. There is mitral annular calcification. The tricuspid valve is normal in structure. IVC is normal in size and collapses >50% with inspiration. There is [place] [address] 2 D/M-MODE ECHOCARDIOGRAM Name: YOUNG JACOBSEN Room: [address] IN M.R.#: [id number] Admission: 12/15/19 Attend Phys: Flaco Vega, Discharge: 12/18/19 Date of : 70 Date of Service: 12/18/191534 Report #: [id number] There is normal LV segmental wall motion. The left ventricle is normal size. <ELECTRONICALLY SIGNED> By: Eagle Hill MD, FACC 12/18/195 34 34 Eagle Hill MD, FACC /INF
== END 2019-12-18 13:30 | disposition home or self-care (01) | DRG 177 ==
LOC: M.ERS 13:04 → M.2W 14:38 → M.TBA-ER 14:38 → M.ICU 15:40 → M.2W 12-16 16:21
PROVIDERS: Internal Medicine Pulmonary Disease; Personal Emergency Response Attendant; ADMIT Internal Medicine
PROC: 5A09357 Assistance with Respiratory Ventilation, Less than 24 Consecutive Hours, Continuous Positive Airway Pressure (ICD-10-PCS; principal; 2019-12-15)
PROC: 5A09357 Assistance with Respiratory Ventilation, Less than 24 Consecutive Hours, Continuous Positive Airway Pressure (ICD-10-PCS; 2019-12-16)
PROC: 5A09357 Assistance with Respiratory Ventilation, Less than 24 Consecutive Hours, Continuous Positive Airway Pressure (ICD-10-PCS; 2019-12-17)
PROC: 5A09357 Assistance with Respiratory Ventilation, Less than 24 Consecutive Hours, Continuous Positive Airway Pressure (ICD-10-PCS; 2019-12-18)
DX: J15.6 Pneumonia due to other Gram-negative bacteria (principal); J96.21 Acute and chronic respiratory failure with hypoxia; I21.A1 Myocardial infarction type 2; J96.22 Acute and chronic respiratory failure with hypercapnia; Z68.45 Body mass index [BMI] 70 or greater, adult; J44.0 Chronic obstructive pulmonary disease with (acute) lower respiratory infection; E66.2 Morbid (severe) obesity with alveolar hypoventilation; J45.51 Severe persistent asthma with (acute) exacerbation; E87.2 Acidosis; E44.0 Moderate protein-calorie malnutrition; I13.0 Hypertensive heart and chronic kidney disease with heart failure and stage 1 through stage 4 chronic kidney disease, or unspecified chronic kidney disease; I50.9 Heart failure, unspecified; Z60.2 Problems related to living alone; I16.0 Hypertensive urgency; E11.22 Type 2 diabetes mellitus with diabetic chronic kidney disease; E11.65 Type 2 diabetes mellitus with hyperglycemia; Z79.899 Other long term (current) drug therapy; Z79.82 Long term (current) use of aspirin; Z88.7 Allergy status to serum and vaccine; Z88.6 Allergy status to analgesic agent; Z88.8 Allergy status to other drugs, medicaments and biological substances; Z88.2 Allergy status to sulfonamides; Z91.048 Other nonmedicinal substance allergy status

== ENCOUNTER 2020-02-09 23:16 | Inpatient (IN) | payer MEDICAID ==
[~2020-02-09] VITALS: Ht 180.3 cm; Wt 233.6 kg
[~2020-02-09 23:16] MED LIST changes: +CEFDINIR300 MG PO
[2020-02-09 23:25] VITALS: BP 142/87
[2020-02-09 23:38] LABS: ABSOLUTE BASOPHILS 0.1 thou/uL (0.0-0.2); ABSOLUTE EOSINOPHILS 0.5 thou/uL (0.0-0.7); ABSOLUTE LYMPHOCYTES 1.1 thou/uL (0.8-5.3); ABSOLUTE MONOCYTES 0.7 thou/uL (0.0-1.2); ABSOLUTE NEUTROPHILS 5.7 thou/uL (1.6-8.1); BASOPHILS 0.7 %; EOSINOPHILS 5.7 %; HEMATOCRIT 35.9 % (37.0-47.0); HEMOGLOBIN 11.4 gm/dL (12.0-15.0); LYMPHOCYTES 13.5 %; MCH 27.2 pg (26.0-34.0); MCHC 31.8 g/dL (28.0-37.0); MCV 85.5 fL (80.0-100.0); MONOCYTES 8.4 %; MPV 7.9 fl. (7.2-11.1); NUCLEATED RBCS 0 /100WBC; PLATELET COUNT* 273 thou/uL (150-400); POLYS 71.7 %; RDW-CV 19.7 % (10.5-14.5); WBC 7.9 thou/uL (4.0-11.0)
[2020-02-09 23:47] LABS: CALCIUM 8.4 mg/dL (8.5-10.1); CREATININE 1.7 mg/dL (0.6-1.3)
[2020-02-09 23:49] LABS: APTT 24.7 Seconds (25.0-31.3); INR 1.1; PROTIME 11.4 Seconds (9.20-11.50)
[2020-02-09 23:58] LABS: TOTAL BILIRUBIN 0.5 mg/dL (<0.1-1.0); TOTAL PROTEIN 6.8 g/dL (6.4-8.2)
[2020-02-10] VITALS (7 sets, daily range): BP systolic 138–185; BP diastolic 68–95
--- NOTE | 2020-02-10 05:23 | NUR ---
PT ADMITTED TO FLOOR AT 0150 REQUIRING BIPAP FOR SOA. ASSESSMENTS COMPLETED AT BEDSIDE WITH PT. MEDICATIONS ADMINISTERED PER NOV. NO PAIN NOTED AT THIS TIME. CURRENTLY ASLEEP IN BED WITH BED ALARM ON AND CALL LIGHT WITHIN REACH. HOUSE SUPERVISIOR TO ORDER BARIATIC BED FOR PT.
--- NOTE | 2020-02-10 10:14 | EKG ---
[place] [address] ELECTROCARDIOGRAM REPORT Name: YOUNG JACOBSEN Room: [address] ADM IN .R.#: [id number] Admission: 02/10/20 Attend Phys: Pavan Dai Discharge: Date of : 70 Date of Service: 02/09/20 2320 Report #: [id number] THIS REPORT FOR: //name// [facility] ED Test Date: 2020-02-09 Test Time: 23:20:04 Pat Name: YOUNG JACOBSEN Department: Room: [facility] Gender: F Rf Test Engineer: NATALIE : 1970 Requested By: Kings [place] Order Number: [id number] MD: Dejan Burdick Measurements Intervals [place] Rate: 86 P: 48 WA: 212 QRS: 51 QRSD: 112 T: 72 QT: 395 QTc: 473 Interpretive Statements Sinus rhythm Ventricular premature complex Prolonged WA interval Borderline intraventricular conduction delay Borderline T wave abnormalities Compared to ECG 12/15/2019 13:21:24 Ventricular premature complex(es) now present Prolonged QT interval no longer present Electronically Signed On 02-10-2020 10:12:44 CDT by eDjan Burdick [email or web address] <ELECTRONICALLY SIGNED> By: Dejan Burdick MD, FAC 02/10/20 1012 2320 2320 Dejan Burdick MD, [facility] /EPI
--- NOTE | 2020-02-10 17:15 | NUR ---
ASSUMED CARE OF PATIENT THIS AM AT 0730. PATIENT IS ALERT AND ORIENTED X 4. SHE C/O A FROST. POTASSIUM LEVEL WAS LOW AT 3.0. PATIENT'S BLOODSUGARS WERE >300. DR DUNCAN CALLED AND NOTIFIED. PO POTASSIUM GIVEN X 1. MEDICATED FOR PAIN PO X 1. SLIDING SCALE INSULIN STARTED. PATIENT ASSISTED WITH ADLS THROUGHOUT THE DAY. BIGBOY BED PLACED IN ROOM FOR PATIENT. TELE SHOWS SR WITH 1DAVB. PATIENT IS RESTING AT THIS TIME. NO FALLS OR INJURY.
[2020-02-11] VITALS: BP 173/98
[2020-02-11 04:00] VITALS: BP 157/87
[2020-02-11 05:45] LABS: ALBUMIN 3.3 g/dL (3.4-5.0); CALCIUM 9.2 mg/dL (8.5-10.1); CREATININE 1.7 mg/dL (0.6-1.3); POTASSIUM 3.6 mmol/L (3.5-5.1); TOTAL BILIRUBIN 0.5 mg/dL (<0.1-1.0); TOTAL PROTEIN 7.5 g/dL (6.4-8.2)
--- NOTE | 2020-02-11 06:55 | NUR ---
ASSESSMENTS COMPLETED AT BEDSIDE, PLEASE REFER TO CHARTING. MEDICATIONS ADMINISTERED PER MAR. HOURLY ROUNDING COMPLETED FOR SAFETY. CALL LIGHT WITHIN REACH. ALL NEEDS MET AT THIS TIME.
[2020-02-11 08:00] VITALS: BP 156/92
[2020-02-11 10:44] LABS: BE 3.8 mmol/L (-2 to +3); PO2 64.5 mmHg (75.0-100.0); pH 7.378 (7.340-7.450)
[2020-02-11 12:00] VITALS: BP 180/104
--- NOTE | 2020-02-11 15:59 | NUR ---
ASSUMED CARE OF PATIENT THIS AM AT 0730. PATIENT IS ALERT AND ORIENTED X 4. TELE SHOWS SR. PATIENT IS ON O2 AT 3 LITERS WHILE AWAKE AND ON BIPAP WHILE SLEEPING. PATIENT EASILY BECOMES SOA WITH MINIMAL MOVEMENT. PATIENT IS UP TO THE BSC TO VOID WITH STANDBY ASSIST. ABG RESULTS CALLED TO PULMONARY DR THIS AFTERNOON. BLOOD SUGARS MONITORED. PATIENT'S PAIN HAS BEEN CONTROLLED WITH TRAMADOL. PATIENT IS RESTING AT THIS TIME. NO FALLS OR INJURY.
[2020-02-11 16:00] VITALS: BP 193/102
[2020-02-11 19:52] VITALS: BP 177/105
[2020-02-12] VITALS (7 sets, daily range): BP systolic 153–217; BP diastolic 78–126
[2020-02-12 05:07] LABS: HEMATOCRIT 36.6 % (37.0-47.0); HEMOGLOBIN 11.1 gm/dL (12.0-15.0); MCH 26.9 pg (26.0-34.0); MCHC 30.4 g/dL (28.0-37.0); MCV 88.5 fL (80.0-100.0); RBC 4.13 mil/uL (4.20-5.00); RDW-CV 20.1 % (10.5-14.5); WBC 13.4 thou/uL (4.0-11.0)
[2020-02-12 05:33] LABS: ALBUMIN 3.2 g/dL (3.4-5.0); CALCIUM 8.4 mg/dL (8.5-10.1); CREATININE 1.6 mg/dL (0.6-1.3); MAGNESIUM 2.1 mg/dL (1.8-2.4); POTASSIUM 4.3 mmol/L (3.5-5.1); TOTAL BILIRUBIN 0.3 mg/dL (<0.1-1.0); TOTAL PROTEIN 7.4 g/dL (6.4-8.2)
--- NOTE | 2020-02-12 06:03 | NUR ---
RECEIVED REPORT AND ASSUMED CARE OF PATIENT AT 1900. VSS. NO ACUTE CHANGES THROUGHOUT SHIFT. ALL ROUNDINGS COMPLETED, ALL NEEDS MET, FULL ASSESSMENT COMPLETED CHARTED.
--- NOTE | 2020-02-12 15:39 | NUR ---
PT TRANSFERRED TO ROOM 200 R/O COVID, ENHANCED PRECAUTIONS.
--- NOTE | 2020-02-12 18:50 | NUR ---
PT CALLED OUT THAT SHE CANT BREATH BECAUSE IT IS TO HOT IN ROOM. CHECK SPO2 AND IT IS 100% ON BIPAP. CONTACT MAINTENANCE TO DECREASE TEMPERATURE IN ROOM. WILL CONTINUE TO ASSESS.
--- NOTE | 2020-02-12 19:17 | NUR ---
INFORMED DR. SEGUNDO OF PT'S ELEVATED EVENING BLOOD PRESSURE. INSTRUCTED NOT TO START AND BEW MEDS AND TREAT WITH PRN HYDRALIZINE. REPORT GIVEN TO SRINIVASAN DEL ROSARIO.
[2020-02-13] VITALS (7 sets, daily range): BP systolic 121–228; BP diastolic 99–122
--- NOTE | 2020-02-13 05:30 | NUR ---
ASSUMED CARE OF PT AT 1900. PT IS ALERT AND ORIENTED. NO COMPLAINTS OF PAIN. PT RECIEVING HYDRALAZINE FOR BP. PERRLA. PT HAS BIPAP ON. PT IS IN SINUS RYTHM ON THE TELEMETRY. PT IS RESTING COMFORTABLY IN BED. RESPIRATIONS ARE EVEN AND NONLABORED. WILL CONTINUE TO MONITOR PT.
[2020-02-13 06:38] LABS: URINE BILIRUBIN NEGATIVE (Negative); URINE BLOOD 2+ (Negative); URINE CLARITY CLEAR; URINE COLOR YELLOW; URINE GLUCOSE-RANDOM 1+ (Negative); URINE KETONES NEGATIVE (Negative); URINE LEUKOCYTES-REFLEX NEGATIVE (Negative); URINE NITRITE-REFLEX NEGATIVE (Negative); URINE PROTEIN 3+ (Negative); URINE SPECIFIC GRAVITY 1.025 (1.005-1.030); URINE UROBILINOGEN 0.2 E.U./dl (0.2-1.0)
[2020-02-13 06:46] LABS: SQUAMOUS 4-10 Moderate /LPF (0-3); URINE WBC-REFLEX 6-15 Few /HPF (0-5)
[2020-02-13 06:47] LABS: BACTERIA-REFLEX >30 Many /HPF (None Seen); CASTS None Seen /LPF (None Seen); CRYSTALS None Seen /LPF (None Seen); MUCUS 0-3 Light strn/LPF (None Seen); URINE RBC 3-10 Few /HPF (0-2)
--- NOTE | 2020-02-13 10:27 | NUR ---
Nutrition: screen d/t BMI. Wt acutally down from 580-600 lb in 2019. Pt admit w/ acute resp failure; R/o COVID. Nsg reported pt doing well with meal, no concerns. Albumin 3.2, RFT's elevated. Solumedrol and other meds reviewed. BG elevated. Low risk; RD available by consult for any furhter needs.
[2020-02-13 11:21] LABS: HEMATOCRIT 39.4 % (37.0-47.0); HEMOGLOBIN 12.4 gm/dL (12.0-15.0); MCH 26.7 pg (26.0-34.0); MCHC 31.6 g/dL (28.0-37.0); MCV 84.5 fL (80.0-100.0); NUCLEATED RBCS 0 /100WBC; RBC 4.66 mil/uL (4.20-5.00); RDW-CV 20.2 % (10.5-14.5); WBC 12.1 thou/uL (4.0-11.0)
[2020-02-13 11:23] LABS: PLATELET COUNT* 377 thou/uL (150-400)
[2020-02-13 11:35] LABS: ALBUMIN 3.4 g/dL (3.4-5.0); CALCIUM 8.9 mg/dL (8.5-10.1); CREATININE 1.6 mg/dL (0.6-1.3); POTASSIUM 3.7 mmol/L (3.5-5.1); TOTAL BILIRUBIN 0.4 mg/dL (<0.1-1.0); TOTAL PROTEIN 7.6 g/dL (6.4-8.2)
[2020-02-13 11:45] LABS: ABSOLUTE LYMPHOCYTES 0.5 thou/uL (0.8-5.3); ABSOLUTE MONOCYTES 0.6 thou/uL (0.0-1.2); ANISOCYTOSIS 1+; MYELOCYTES 1 %; PLATELET ESTIMATE ADEQUATE; POIKILOCYTOSIS 1+
--- NOTE | 2020-02-13 14:00 | NUR ---
PT.UP IN CHAIR. STATED SHE LIVES ALONE. IS INDEPENDENT. HAS O2 ,NEBULIZER,TRILOGY AND WALKER AT HOME. DISCUSSE WITH THIS AM. MAY NEED HOME HEALTH AT DISCHARGE. ONLY HAS INSURANCE BENEFIT FOR NURSING. MAY BE HER APPROX 3-4 MORE DAYS. CM WILL FOLLOW.
--- NOTE | 2020-02-13 16:03 | NUR ---
Nutrition: consulted for wt loss instruction. Provided pt with handouts on tips for wt loss, cooking for wt loss and 5 days meal plans for 1800 kcal and 1500 kcal diets. Pt was sleeping at visit this afternoon and asked RD to leave the information on bedside table. RD will follow up with pt later in week.
--- NOTE | 2020-02-13 18:52 | NUR ---
PT. BLOOD PRESSURE HAS REMAINED ELEVATED THROUGH OUT THE DAY. PRN HYDRALAZINE GIVEN X1. PT. UP TO BSC/CHAIR MOST OF THE DAY. REMIANS ON NASAL CANULA TODAY, TOLERATING WELL. INITIALLY THIS MORNING HAD MORE LABORED BREATHING, BUT SHOWING IMPROVEMENT THIS EVENING, NOT USING ACC. MUSCLES.
[2020-02-14] VITALS (7 sets, daily range): BP systolic 131–191; BP diastolic 68–118
--- NOTE | 2020-02-14 02:36 | NUR ---
ASSUMED CARE OF PT AT 1900. PT IS ALERT AND ORIENTED. VSS. PERRLA. PT IS WEARING BIPAP. PT IS IN SINUS RYTHM ON THE TELEMETRY. PT IS RESTING COMFORTABLY IN BED. RESPIRATIONS ARE EVEN AND NONLABORED. WILL CONTINUE TO MONITOR PT.
[2020-02-14 06:08] LABS: HEMOGLOBIN 11.7 gm/dL (12.0-15.0); MCHC 31.6 g/dL (28.0-37.0); MCV 85.4 fL (80.0-100.0); MPV 7.6 fl. (7.2-11.1); RBC 4.34 mil/uL (4.20-5.00); WBC 11.4 thou/uL (4.0-11.0)
[2020-02-14 06:21] LABS: CALCIUM 8.4 mg/dL (8.5-10.1); CREATININE 1.8 mg/dL (0.6-1.3); MAGNESIUM 2.2 mg/dL (1.8-2.4); POTASSIUM 3.5 mmol/L (3.5-5.1)
--- NOTE | 2020-02-14 11:46 | NUR ---
Per Dr, anticipate dc i 1-2 days. Pt continues to have BP issues, respiratory status is improving.
--- NOTE | 2020-02-14 14:11 | NUR ---
ASSUMED CARE OF PATIENT THIS AM AT 0730. PATIENT IS ALERT AND ORIENTED X 4. SHE DENIES PAIN BUT SAYS THAT SHE DOES NOT FEEL WELL. TELE SHOWS SR WITH PVCS. PATIENT WAS KEPT NPO THIS AM FOR A RENAL US THIS AM. DIET RESUMED. BLOOD SUGARS MONITOR. PATIENT HAS BEEN ON O2 AT 2 LITERS THROUGHOUT THE DAY TODAY. SHE WAS UP TO THE SHOWER WITH ASSIST. NO FALLS OR INJURY. WILL CONTINUE TO MONITOR BLOOD SUGARS, ASSESSMENTS AND VITAL SIGNS. PATIENT STARTED ON AN ADDITIONAL BP MEDICATION THIS AM.
[2020-02-15 04:00] VITALS: BP 106/60
--- NOTE | 2020-02-15 04:08 | NUR ---
ASSUMED PT CARE AT APPROX 1930. PT IS AWAKE AND ORIENTED X4. PT IS TRACING SR ON THE NEWS VIDEOGRAPHER. PT IS NOT IN ANY DISTRESS,NO DESATURATIONS NOTED ON 2L OF O2/NC. PT IS ON THE BIPAP AT HS. NO ACUTE CHANGES THROUGHOUT THIS SHIFT. CALL LIGHT WITHIN REACH, HOURLY ROUNDING DONE FOR PT SAFETY. HIGH FALL PRECAUTIONS IN PLACE.
[2020-02-15 05:07] LABS: HEMATOCRIT 33.6 % (37.0-47.0); MCH 27.7 pg (26.0-34.0); MCHC 32.7 g/dL (28.0-37.0); MCV 84.8 fL (80.0-100.0); MPV 9.7 fl. (7.2-11.1); RBC 3.96 mil/uL (4.20-5.00); RDW-CV 19.8 % (10.5-14.5); WBC 10.9 thou/uL (4.0-11.0)
[2020-02-15 07:45] VITALS: BP 106/58
[2020-02-15 09:54] LABS: CREATININE 2.2 mg/dL (0.6-1.3); MAGNESIUM 2.4 mg/dL (1.8-2.4); POTASSIUM 3.6 mmol/L (3.5-5.1)
[2020-02-15 12:00] VITALS: BP 126/68
--- NOTE | 2020-02-15 12:18 | NUR ---
Per , anticipate dc to home tomorrow. PT/OT evals to be completed today. No needs anticipated.
[2020-02-15 16:00] VITALS: BP 146/85
--- NOTE | 2020-02-15 19:24 | NUR ---
ASSESSMENT CHARTED. VSS. UP WITH PHYSICAL THERAPY IN THE HALLS. UP WITH 1 ASSIST TO THE BEDSIDE COMMODE. PAIN RATED 5-10 IN RIGHT HIP WORSE WITH MOVEMENT. NO OTHER COMPLAINTS. REMAINS ON 2L NC.
[2020-02-15 20:53] VITALS: BP 172/92
[2020-02-15 23:45] VITALS: BP 129/63
[2020-02-16 04:00] VITALS: BP 115/58
[2020-02-16 04:51] LABS: ABSOLUTE BASOPHILS 0.1 thou/uL (0.0-0.2); ABSOLUTE EOSINOPHILS 0.1 thou/uL (0.0-0.7); ABSOLUTE LYMPHOCYTES 1.4 thou/uL (0.8-5.3); ABSOLUTE MONOCYTES 0.9 thou/uL (0.0-1.2); ABSOLUTE NEUTROPHILS 7.4 thou/uL (1.6-8.1); BASOPHILS 0.6 %; EOSINOPHILS 1.1 %; HEMATOCRIT 34.8 % (37.0-47.0); HEMOGLOBIN 11.2 gm/dL (12.0-15.0); LYMPHOCYTES 14.3 %; MCH 27.4 pg (26.0-34.0); MCHC 32.3 g/dL (28.0-37.0); MCV 84.7 fL (80.0-100.0); MPV 7.8 fl. (7.2-11.1); NUCLEATED RBCS 0 /100WBC; PLATELET COUNT* 307 thou/uL (150-400); RBC 4.11 mil/uL (4.20-5.00); RDW-CV 20.1 % (10.5-14.5); WBC 9.9 thou/uL (4.0-11.0)
[2020-02-16 05:06] LABS: ALBUMIN 2.7 g/dL (3.4-5.0); CALCIUM 8.1 mg/dL (8.5-10.1); CREATININE 2.2 mg/dL (0.6-1.3); MAGNESIUM 2.2 mg/dL (1.8-2.4); POTASSIUM 3.6 mmol/L (3.5-5.1); TOTAL BILIRUBIN 0.4 mg/dL (<0.1-1.0); TOTAL PROTEIN 5.9 g/dL (6.4-8.2)
[2020-02-16 06:06] LABS: ANISOCYTOSIS 1+; HYPOCHROMASIA 1+; POIKILOCYTOSIS 1+
[2020-02-16 06:07] LABS: OVALOCYTES Occasional; TEARDROPS Occasional
--- NOTE | 2020-02-16 07:58 | NUR ---
PT IS ABLE TO COMMUNICATE HER NEEDS TO STAFF EFFECTIVELY. CURRENT PAIN MEDICATION REGIMEN HAS BEEN ADEQUATE FOR CONTROLLING HER PAIN UP TO THIS TIME. POSSIBLE DISCHARGE LATER TODAY.
[2020-02-16 08:00] VITALS: BP 139/60
--- NOTE | 2020-02-16 11:53 | NUR ---
Per , anticipate dc to home tomorrow. Pt only qualifies for a HH nurse, if HH is needed, Dr aware. If Pt needs transportation, arrange through [email or web address] [phone], [facility] on [facility] for non scheduled [facility]ts.
[2020-02-16 12:00] VITALS: BP 136/78
--- NOTE | 2020-02-16 14:52 | NUR ---
Nutrition: follow up with pt to discuss wt loss diet. Recommended pt follow kcal controlled diet. Provided with meal plans for 1800 kcal and 1500 kcal diets. Encourage pt to follow the diet for several weeks and see if she is able to lose some wt; if not then lower the kcal by 200-300 kcal/d and follow that for several weeks. Discussed that it is difficult to est kcal needs in pt's with extreme mrobid obesity. The other obsticle is that she has no way to weigh herself to see if she is losing wt. Pt's wt was down from several months ago at 570-590 lb and she was unaware if she had any wt loss despite current wt's significantly lower at 515-520 lb. Encouarged pt to call bariatric surgeon office to see if they know of a scale that weighs >500 lb.
[2020-02-16 16:00] VITALS: BP 154/81
--- NOTE | 2020-02-16 17:55 | NUR ---
PATINET RESTING IN BED. UP TO BEDSIDE COMMODE AD PARI. SOA WITH EXERTION. VSS AND PATINET IN NO APPARENT SIGNS OF DISTRESS AT THIS TIME. HOURLY ROUDNING COMPLETD FOR PATINET SAFETY. EXPECTED DC TO HOME WITH HOME HEALTH TOMORROW.
[2020-02-16 20:00] VITALS: BP 160/99
[2020-02-17] VITALS: BP 148/67
[2020-02-17 04:00] VITALS: BP 126/64
[2020-02-17 04:17] LABS: HEMATOCRIT 33.9 % (37.0-47.0); HEMOGLOBIN 10.8 gm/dL (12.0-15.0); MCH 26.8 pg (26.0-34.0); MCHC 31.9 g/dL (28.0-37.0); MPV 7.5 fl. (7.2-11.1); RBC 4.03 mil/uL (4.20-5.00); RDW-CV 19.8 % (10.5-14.5); WBC 9.2 thou/uL (4.0-11.0)
[2020-02-17 04:35] LABS: CALCIUM 8.1 mg/dL (8.5-10.1); POTASSIUM 3.6 mmol/L (3.5-5.1)
--- NOTE | 2020-02-17 07:10 | NUR ---
CHANGE OF SHIFT AT BEDSIDE REPORT GIVEN PATIENT SEEN AT BEDSIDE, IN BED RESTING ASSUMED PATIENT CARE
[2020-02-17 08:00] VITALS: BP 149/91
[2020-02-17] MEDS ORDERED: CATAPRES0.1 MG PO (12:00)
[2020-02-17] MEDS ORDERED: LEVAQUIN 500 M500 M1 PO (12:00)
[2020-02-17] MEDS ORDERED: HYDRALAZINE 2525 MG PO (12:00)
[2020-02-17] MEDS ORDERED: COREG25 MG PO (12:00)
[2020-02-17] MEDS ORDERED: PREDNISONE 10 M10 MG PO (12:00)
[2020-02-17 14:39] VITALS: BP 93/49
--- NOTE | 2020-02-17 15:55 | NUR ---
PATIENT DCD TO HOME DC INSTRUCTIONS GIVENS, ACKNOWLEDGED, SIGNED COPIES GIVEN IV AAND HEART MONITOR REMOVED PERSONAL BELONGINGS RETURNED PATIENT ASSISTED OUT VIA STRETCHER TO WAITING TRANSPORTATION
== END 2020-02-17 16:00 | disposition home or self-care (01) | DRG 177 ==
LOC: M.ERS 23:16 → M.2W 02-10 00:23 → M.TBA-ER 02-10 00:23 → M.2W 02-10 01:58
PROVIDERS: Emergency Medicine Emergency Medical Services; Internal Medicine; Internal Medicine Critical Care Medicine; Pediatrics; ADMIT Internal Medicine; ATTEND Internal Medicine
PROC: 5A09357 Assistance with Respiratory Ventilation, Less than 24 Consecutive Hours, Continuous Positive Airway Pressure (ICD-10-PCS; principal; 2020-02-10)
PROC: 5A09357 Assistance with Respiratory Ventilation, Less than 24 Consecutive Hours, Continuous Positive Airway Pressure (ICD-10-PCS; 2020-02-11)
PROC: 5A09357 Assistance with Respiratory Ventilation, Less than 24 Consecutive Hours, Continuous Positive Airway Pressure (ICD-10-PCS; 2020-02-12)
PROC: 5A09357 Assistance with Respiratory Ventilation, Less than 24 Consecutive Hours, Continuous Positive Airway Pressure (ICD-10-PCS; 2020-02-14)
PROC: 5A09357 Assistance with Respiratory Ventilation, Less than 24 Consecutive Hours, Continuous Positive Airway Pressure (ICD-10-PCS; 2020-02-15)
DX: J15.6 Pneumonia due to other Gram-negative bacteria (principal); J96.22 Acute and chronic respiratory failure with hypercapnia; I50.43 Acute on chronic combined systolic (congestive) and diastolic (congestive) heart failure; Z68.45 Body mass index [BMI] 70 or greater, adult; J45.21 Mild intermittent asthma with (acute) exacerbation; N17.9 Acute kidney failure, unspecified; J44.0 Chronic obstructive pulmonary disease with (acute) lower respiratory infection; I13.0 Hypertensive heart and chronic kidney disease with heart failure and stage 1 through stage 4 chronic kidney disease, or unspecified chronic kidney disease; G47.33 Obstructive sleep apnea (adult) (pediatric); I25.10 Atherosclerotic heart disease of native coronary artery without angina pectoris; G89.29 Other chronic pain; E66.01 Morbid (severe) obesity due to excess calories; N18.3 Chronic kidney disease, stage 3 (moderate); E11.22 Type 2 diabetes mellitus with diabetic chronic kidney disease; D63.1 Anemia in chronic kidney disease; Z20.828 Contact with and (suspected) exposure to other viral communicable diseases; Z88.7 Allergy status to serum and vaccine; Z88.2 Allergy status to sulfonamides; Z88.8 Allergy status to other drugs, medicaments and biological substances; Z88.6 Allergy status to analgesic agent; Z91.040 Latex allergy status; Z82.49 Family history of ischemic heart disease and other diseases of the circulatory system; Z82.5 Family history of asthma and other chronic lower respiratory diseases

== ENCOUNTER 2020-05-06 16:22 | Inpatient (IN) | payer MEDICAID ==
[~2020-05-06] VITALS: Ht 180.3 cm; Wt 259.5 kg
--- NOTE | ~2020-05-06 | CON ---
[address] [address] CONSULTATION Name: YOUNG JACOBSEN Room: [address] IN .R.#: [id number] Admission: 05/06/20 Attend Phys: Kelvin Sandoval MD Discharge: Date of : 70 Report #: [id number] THIS REPORT FOR: //name// cc: BECCA - Family physician unknown BECCA - Family physician unknown ~ THIS REPORT FOR: //name// CC: Kelvin HUDSON unknown DATE OF SERVICE: 05/07/2020 CONSULT REQUESTED BY: Kelvin Sandoval MD INDICATION FOR CONSULTATION: Nyoxr-io-jwdwgmh hypercarbic respiratory failure. HISTORY OF PRESENT ILLNESS: A 49-year-old female with past medical history includes a history of chronic hypercarbic respiratory failure with obstructive sleep apnea and obesity hypoventilation syndrome as well as bronchial asthma. She is on a BiPAP as well as oxygen long-term. She does have chronic renal insufficiency. Also, she does have congestive heart failure. She only has a remote history of smoking. At this time, the patient is admitted with increasing shortness of breath. The patient is limited in providing history, but she says that she has had shortness of breath for a long period of time and this is worse for the last several days. She reports a cough. She states that she had one episode of yellow sputum. She does not have chest pain; however, as described below, she does have abdominal pain. She has a minor nasal discharge only. There is no sore throat. She does not report chills. She had stated that she had a minor elevation in temperature up to 99 degrees Celsius earlier. The patient does report significant epigastric pain. She, however, is not reporting any nausea or vomiting. One loose stool, otherwise has not had diarrhea. She does have swelling of lower extremities, which is more on the right side than the left. She has some leg pain as well. The patient has joint pains, which remain at baseline. She has disturbed sleep at night as well as sleepiness during the day. These complaints are also at baseline. The patient has fairly limited IV access. She does have an IV in her right shoulder, which looks pink, which means likely this is a 20-gauge; however, she does not appear to have a good wanes for maintaining IV access peripherally. REVIEW OF SYSTEMS: The patient's review of systems for 12 points is negative except as mentioned above. PAST MEDICAL HISTORY: Chronic hypercarbic/hypoxemic respiratory failure, [place] [address] CONSULTATION Name: YOUNG JACOBSEN Room: [address] IN [facility].#: [id number] Admission: 05/06/20 Attend Phys: Kelvin Sandoval MD Discharge: Date of : 70 Report #: [id number] on a BiPAP as well as oxygen long-term; obstructive sleep apnea; obesity hypoventilation syndrome; bronchial asthma. There is mention of COPD on the records as well. However, primarily it appears more likely that she has asthma as well as obesity hypoventilation syndrome, congestive heart failure. Her left ventricular ejection fractions are reduced from previous echos. Hernias, keloids, carpal tunnel surgery, morbid obesity, coronary artery disease, chronic renal insufficiency, baseline creatinine does appear to be elevated to around 1.6. Chronic venous stasis/chronic insufficiency, depression, anxiety, irritable bowel syndrome. CURRENT MEDICATIONS: List in Disenia reviewed. HOME MEDICATIONS: List in Disenia also reviewed. ALLERGIES: TETANUS TOXOID, MORPHINE, LATEX, BACTRIM AND TAPE ARE MENTIONED ALLERGIES. SOCIAL HISTORY: There is only a remote history of smoking. She says that she was an occasional smoker when she was much younger. No known history of heavy alcohol use or illegal drug use. FAMILY HISTORY: There is no pertinent family history. The patient's chest x-ray is reviewed. It does show bilateral infiltrates as well as increase in pulmonary vascular congestion, worse as compared with the patient's previous chest x-ray. PHYSICAL EXAMINATION: GENERAL: She is alert, awake and oriented. She is oxygenating adequately in the high 90s on 3 liters nasal cannula; however, she appears to be short of breath at rest. VITAL SIGNS: She has a pulse of 75 and her blood pressure of 157/95, respiratory rate was elevated to 24. She is afebrile with a temperature of 36.7. Her body mass index is severely elevated at 75.3. HEENT: Head is normocephalic and atraumatic. Pupils are equal and reactive. There is mild throat erythema. Her airway does appear to be narrow. NECK: Does not show raised JVP, asymmetry, mass or lymph nodes. CHEST: Symmetrical expansion on inspection and palpation. On auscultation, breath sounds are bilaterally equal, but decreased. Expirations are prolonged. I do not hear any added sounds. HEART: Regular. There is no murmur. ABDOMEN: Soft, however, there is marked epigastric tenderness. EXTREMITIES: Lower extremities do show edema. Edema is more on the right side than the left. There is some evidence of chronic venous insufficiency as well. The patient does have some calf tenderness, more on the right. SKIN: However, dry and intact. [address] [place] [address] CONSULTATION Name: YOUNG JACOBSEN Room: [address] IN M.R.#: [id number] Admission: 05/06/20 Attend Phys: Kelvin Sandoval MD Discharge: Date of : 70 Report #: [id number] NEUROLOGICAL: Moves all extremities bilaterally equally and spontaneously with no focal deficit identified. LABORATORY DATA: The patient's COVID-19 antigen was negative. The patient's CBC as well as chemistries are in [facility] and these are reviewed. I had a magnesium as well as lipase added to this morning's labs. These are within the normal range. ASSESSMENT AND PLAN: 1. Seucg-km-lbjhluf hypoxemic/hypercarbic respiratory failure. The patient is on a BiPAP while asleep. I will go ahead and switch her over to AVAPS mode long-term. She does need to continue either a BiPAP or Trilogy while asleep long-term. We will verify that she does not have a CPAP and does have a BiPAP at home. My preference in fact will be using a Trilogy long-term rather than BiPAP. We will follow and advise to continue to titrate oxygen. 2. Pulmonary infiltrates. I will repeat a chest x-ray. The patient currently is on azithromycin and ceftriaxone as for now, continue the current antibiotics. 3. Jolji-wk-rpbrfgg systolic congestive heart failure. The patient is on Lasix b.i.d. We will do a chest x-ray and labs again today and see where we stand. Meanwhile, I will want to avoid giving her oral potassium as she has significant epigastric pain and she has limited IV access. Therefore, I ordered one dose of Aldactone. We will reassess with labs. 4. Bronchial asthma exacerbation. Continue Solu-Medrol and remains on nebulized bronchodilators. 5. Epigastric pain. I increased her Protonix to b.i.d. I ordered an abdominal ultrasound. Her ultrasound with a limited study due to body habitus last time. In case the same is the case now, then we may need to evaluate as to whether she will fit our CAT scanner. 6. Obstructive sleep apnea with obesity hypoventilation syndrome. See discussion above. 7. Edema. We will also do venous Dopplers. 8. Deep vein thrombosis prophylaxis. She is on Lovenox. 9. Limited IV access, may need a midline. 10. High aspiration risk. Suggest sitting her up to the extent feasible when given orally. By: [id number] Joaquin MD /nt
[~2020-05-06 16:22] MED LIST changes: +CATAPRES0.1 MG PO; -CETIRIZINE HCL5 MG PO; +COREG25 MG PO; -ERGOCALCIF50000 UNIT PO; +HYDRALAZINE 2525 MG PO; +LEVAQUIN 500 M500 M1 PO; -LIPITOR40 MG PO; -NITROSTAT0.4 MG SUBLING; -OMEPRAZOLE20 M2 PO; -SERTRALINE HCL50 MG PO; -VICTOZA0.6 MG/0.1 SUBQ; -VITAMIN D3250 MC1 PO; -ZANAFLEX2 M1 PO
[2020-05-06 16:26] VITALS: BP 170/72
[2020-05-06 16:44] LABS: ABSOLUTE BASOPHILS 0.1 thou/uL (0.0-0.2); ABSOLUTE EOSINOPHILS 0.3 thou/uL (0.0-0.7); ABSOLUTE MONOCYTES 0.5 thou/uL (0.0-1.2); ABSOLUTE NEUTROPHILS 5.7 thou/uL (1.6-8.1); BASOPHILS 1.2 %; EOSINOPHILS 3.7 %; HEMATOCRIT 34.1 % (37.0-47.0); LYMPHOCYTES 13.8 %; MCH 26.4 pg (26.0-34.0); MCHC 32.1 g/dL (28.0-37.0); MONOCYTES 6.3 %; MPV 8.6 fl. (7.2-11.1); NUCLEATED RBCS 0 /100WBC; PLATELET COUNT* 311 thou/uL (150-400); RBC 4.16 mil/uL (4.20-5.00); RDW-CV 17.4 % (10.5-14.5); WBC 7.6 thou/uL (4.0-11.0)
[2020-05-06 16:51] LABS: CREATININE 1.6 mg/dL (0.6-1.3); POTASSIUM 3.5 mmol/L (3.5-5.1)
[2020-05-06 17:02] LABS: ALBUMIN 3.5 g/dL (3.4-5.0); TOTAL BILIRUBIN 0.6 mg/dL (<0.1-1.0); TOTAL PROTEIN 7.1 g/dL (6.4-8.2)
[2020-05-06 19:46] VITALS: BP 151/98
[2020-05-06] MEDS ORDERED: TRAMADOL 50 MG50 MG PO (20:53)
[2020-05-06] MEDS ORDERED: NEURONTIN300 MG PO (20:53)
[2020-05-06 21:00] VITALS: BP 108/103
[2020-05-07] VITALS (7 sets, daily range): BP systolic 132–170; BP diastolic 74–95
[2020-05-07 02:19] LABS: URINE BILIRUBIN NEGATIVE (Negative); URINE BLOOD 3+ (Negative); URINE CLARITY CLEAR; URINE COLOR YELLOW; URINE GLUCOSE-RANDOM NEGATIVE (Negative); URINE KETONES NEGATIVE (Negative); URINE LEUKOCYTES NEGATIVE (Negative); URINE NITRITE NEGATIVE (Negative); URINE PROTEIN 3+ (Negative); URINE SPECIFIC GRAVITY 1.025 (1.005-1.030); URINE UROBILINOGEN 0.2 E.U./dl (0.2-1.0)
[2020-05-07] MEDS ORDERED: ZANAFLEX2 M1 PO (04:02)
[2020-05-07 04:14] LABS: CASTS None Seen /LPF (None Seen); SQUAMOUS >10 Many /LPF (0-3); URINE RBC >20 Many /HPF (0-2); URINE WBC 0-5 Rare /HPF (0-5)
[2020-05-07 04:15] LABS: BACTERIA 1-9 Few /HPF (None Seen); CRYSTALS None Seen /LPF (None Seen)
[2020-05-07] MEDS ORDERED: NITROSTAT0.4 MG SUBLING (04:26)
[2020-05-07] MEDS ORDERED: CETIRIZINE HCL5 MG PO (04:26)
[2020-05-07] MEDS ORDERED: OMEPRAZOLE20 M2 PO (04:26)
[2020-05-07] MEDS ORDERED: AMLODIPINE BESY10 MG PO (04:27)
[2020-05-07] MEDS ORDERED: SERTRALINE HCL50 MG PO (04:28)
[2020-05-07] MEDS ORDERED: SINGULAIR 10 MG10 M1 PO (04:28)
[2020-05-07] MEDS ORDERED: IRON325 PO (04:28)
[2020-05-07] MEDS ORDERED: VITAMIN D3250 MC1 PO (04:28)
[2020-05-07] MEDS ORDERED: LIPITOR40 MG PO (04:29)
[2020-05-07] MEDS ORDERED: ADULT LOW DOSE81 MG PO (04:29)
[2020-05-07] MEDS ORDERED: VITAMIN D250 MCG PO (04:31)
[2020-05-07 05:38] LABS: HEMATOCRIT 33.1 % (37.0-47.0); HEMOGLOBIN 10.7 gm/dL (12.0-15.0); MCH 26.4 pg (26.0-34.0); MCHC 32.4 g/dL (28.0-37.0); MCV 81.3 fL (80.0-100.0); NUCLEATED RBCS 0 /100WBC; PLATELET COUNT* 293 thou/uL (150-400); RBC 4.07 mil/uL (4.20-5.00); RDW-CV 17.1 % (10.5-14.5); WBC 8.5 thou/uL (4.0-11.0)
[2020-05-07 05:54] LABS: CALCIUM 8.9 mg/dL (8.5-10.1); CREATININE 1.6 mg/dL (0.6-1.3); POTASSIUM 3.6 mmol/L (3.5-5.1)
[2020-05-07] MEDS ORDERED: SYMBICORT160 MCG/4. INH (06:57)
[2020-05-07] MEDS ORDERED: VICTOZA0.6 MG/0.1 SUBQ (06:59)
[2020-05-07] MEDS ORDERED: LANTUS SUBQ (07:19)
[2020-05-07 07:50] LABS: ABSOLUTE BASOPHILS 0.1 thou/uL (0.0-0.2); ABSOLUTE LYMPHOCYTES 0.6 thou/uL (0.8-5.3); ABSOLUTE MONOCYTES 0.2 thou/uL (0.0-1.2); ABSOLUTE NEUTROPHILS 7.7 thou/uL (1.6-8.1); ATYPICAL LYMPHS 1 %
[2020-05-07 07:51] LABS: ANISOCYTOSIS 1+; GIANT PLATELETS OCCASIONAL; MICROCYTES 1+; PLATELET ESTIMATE ADEQUATE
[2020-05-07 13:08] LABS: MAGNESIUM 1.9 mg/dL (1.8-2.4)
[2020-05-07 15:07] LABS: CALCIUM 9.2 mg/dL (8.5-10.1); CREATININE 1.8 mg/dL (0.6-1.3); POTASSIUM 3.9 mmol/L (3.5-5.1)
--- NOTE | 2020-05-07 16:23 | EKG ---
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1970 Requested By: Jennifer Mujica Order Number: [id number] MD: [place] Measurements Intervals [place] Rate: 74 P: 42 VT: 202 QRS: 44 QRSD: 118 T: 26 QT: 420 QTc: 466 Interpretive Statements Sinus rhythm Borderline prolonged VT interval Nonspecific intraventricular conduction delay Baseline wander in lead(s) V1,V2 Compared to ECG 02/09/2020 23:20:04 Ventricular premature complex(es) no longer present T-wave abnormality no longer present Electronically Signed On 05-07-2020 16:23:12 CDT by [place] [email or web address] <ELECTRONICALLY SIGNED> By: [place] MD, [facility] 05/07/20 1623 26 26 Eagle [place] MD, [facility] /EPI
[2020-05-08 04:00] VITALS: BP 138/82
[2020-05-08 04:59] LABS: ABSOLUTE LYMPHOCYTES 0.6 thou/uL (0.8-5.3); ABSOLUTE MONOCYTES 0.4 thou/uL (0.0-1.2); BASOPHILS 0.2 %; HEMATOCRIT 33.5 % (37.0-47.0); HEMOGLOBIN 10.8 gm/dL (12.0-15.0); LYMPHOCYTES 6.2 %; MCH 26.2 pg (26.0-34.0); MCHC 32.2 g/dL (28.0-37.0); MCV 81.3 fL (80.0-100.0); MONOCYTES 3.6 %; MPV 8.7 fl. (7.2-11.1); NUCLEATED RBCS 0 /100WBC; PLATELET COUNT* 341 thou/uL (150-400); RBC 4.12 mil/uL (4.20-5.00); RDW-CV 17.3 % (10.5-14.5)
[2020-05-08 05:30] LABS: ALBUMIN 3.3 g/dL (3.4-5.0); CREATININE 1.7 mg/dL (0.6-1.3); MAGNESIUM 2.1 mg/dL (1.8-2.4); TOTAL BILIRUBIN 0.4 mg/dL (<0.1-1.0); TOTAL PROTEIN 6.9 g/dL (6.4-8.2)
[2020-05-08 08:00] VITALS: BP 161/83
[2020-05-08 11:44] VITALS: BP 127/85
[2020-05-08 16:43] VITALS: BP 143/87
[2020-05-08 20:10] VITALS: BP 181/77
[2020-05-09] VITALS: BP 148/86
[2020-05-09 04:00] VITALS: BP 155/94
[2020-05-09 08:00] VITALS: BP 136/74
[2020-05-09 09:06] LABS: ABSOLUTE LYMPHOCYTES 0.6 thou/uL (0.8-5.3); ABSOLUTE MONOCYTES 0.4 thou/uL (0.0-1.2); ABSOLUTE NEUTROPHILS 12.5 thou/uL (1.6-8.1); BASOPHILS 0.1 %; HEMATOCRIT 35.7 % (37.0-47.0); HEMOGLOBIN 11.4 gm/dL (12.0-15.0); LYMPHOCYTES 4.5 %; MCH 26.1 pg (26.0-34.0); MCV 81.5 fL (80.0-100.0); MONOCYTES 2.8 %; MPV 8.4 fl. (7.2-11.1); NUCLEATED RBCS 0 /100WBC; PLATELET COUNT* 388 thou/uL (150-400); POLYS 92.6 %; RBC 4.38 mil/uL (4.20-5.00); RDW-CV 17.5 % (10.5-14.5); WBC 13.5 thou/uL (4.0-11.0)
[2020-05-09 09:23] LABS: ALBUMIN 3.4 g/dL (3.4-5.0); CREATININE 1.8 mg/dL (0.6-1.3); POTASSIUM 4.1 mmol/L (3.5-5.1); TOTAL BILIRUBIN 0.3 mg/dL (<0.1-1.0); TOTAL PROTEIN 7.3 g/dL (6.4-8.2)
[2020-05-09 12:41] VITALS: BP 148/85
[2020-05-09 16:27] VITALS: BP 137/73
[2020-05-09 20:00] VITALS: BP 164/94
[2020-05-10] VITALS: BP 136/82
[2020-05-10 04:00] VITALS: BP 159/89
[2020-05-10 08:00] VITALS: BP 173/100
[2020-05-10 12:00] VITALS: BP 163/95
[2020-05-10 13:24] LABS: HEMATOCRIT 37.2 % (37.0-47.0); HEMOGLOBIN 12.2 gm/dL (12.0-15.0); MCH 26.7 pg (26.0-34.0); MCHC 32.7 g/dL (28.0-37.0); MCV 81.7 fL (80.0-100.0); MPV 8.7 fl. (7.2-11.1); NUCLEATED RBCS 0 /100WBC; PLATELET COUNT* 376 thou/uL (150-400); RBC 4.55 mil/uL (4.20-5.00); RDW-CV 17.1 % (10.5-14.5); WBC 13.4 thou/uL (4.0-11.0)
[2020-05-10 13:51] LABS: ALBUMIN 3.4 g/dL (3.4-5.0); CALCIUM 9.2 mg/dL (8.5-10.1); CREATININE 1.9 mg/dL (0.6-1.3); POTASSIUM 4.3 mmol/L (3.5-5.1); TOTAL BILIRUBIN 0.3 mg/dL (<0.1-1.0); TOTAL PROTEIN 6.9 g/dL (6.4-8.2)
[2020-05-10 13:57] LABS: ABSOLUTE LYMPHOCYTES 0.5 thou/uL (0.8-5.3); ABSOLUTE MONOCYTES 0.8 thou/uL (0.0-1.2); ABSOLUTE NEUTROPHILS 12.1 thou/uL (1.6-8.1); METAMYELOCYTES 1 %
[2020-05-10 13:58] LABS: ANISOCYTOSIS 1+; MICROCYTES 1+; PLATELET ESTIMATE ADEQUATE
[2020-05-10 13:59] LABS: TOXIC GRANULATION Occasional
[2020-05-10 16:00] VITALS: BP 152/86
[2020-05-10 20:00] VITALS: BP 157/84
[2020-05-11] VITALS: BP 96/58
[2020-05-11 04:00] VITALS: BP 145/79
[2020-05-11 08:00] VITALS: BP 145/92
[2020-05-11 13:11] VITALS: BP 169/83
[2020-05-11 16:53] VITALS: BP 143/84
[2020-05-11 20:00] VITALS: BP 108/66
[2020-05-12] VITALS: BP 117/66
[2020-05-12 04:00] VITALS: BP 122/68
[2020-05-12 05:05] LABS: ALBUMIN 2.9 g/dL (3.4-5.0); CALCIUM 8.7 mg/dL (8.5-10.1); CREATININE 1.9 mg/dL (0.6-1.3); POTASSIUM 4.4 mmol/L (3.5-5.1); TOTAL BILIRUBIN 0.2 mg/dL (<0.1-1.0); TOTAL PROTEIN 5.8 g/dL (6.4-8.2)
[2020-05-12 08:00] VITALS: BP 144/81
[2020-05-12] MEDS ORDERED: AUGMENTIN 875-1 EACH PO (08:54)
[2020-05-12] MEDS ORDERED: PREDNISONE 10 M10 MG PO (08:54)
[2020-05-12 10:54] LABS: ABSOLUTE MONOCYTES 0.9 thou/uL (0.0-1.2); ABSOLUTE NEUTROPHILS 9.4 thou/uL (1.6-8.1); BASOPHILS 0.3 %; HEMATOCRIT 37.2 % (37.0-47.0); HEMOGLOBIN 11.8 gm/dL (12.0-15.0); LYMPHOCYTES 8.6 %; MCH 25.8 pg (26.0-34.0); MCHC 31.6 g/dL (28.0-37.0); MCV 81.8 fL (80.0-100.0); MONOCYTES 7.7 %; MPV 8.2 fl. (7.2-11.1); NUCLEATED RBCS 0 /100WBC; PLATELET COUNT* 367 thou/uL (150-400); POLYS 83.4 %; RBC 4.55 mil/uL (4.20-5.00); RDW-CV 17.4 % (10.5-14.5); WBC 11.2 thou/uL (4.0-11.0)
== END 2020-05-12 16:16 | disposition home health service (06) | DRG 291 ==
LOC: M.ERS 16:22 → M.TBA-ER 17:52 → M.2W 17:52
PROVIDERS: Emergency Medicine Emergency Medical Services; Internal Medicine Critical Care Medicine; Physician Assistant; ADMIT Internal Medicine; ATTEND Internal Medicine
PROC: 5A09357 Assistance with Respiratory Ventilation, Less than 24 Consecutive Hours, Continuous Positive Airway Pressure (ICD-10-PCS; principal; 2020-05-07)
PROC: 5A09357 Assistance with Respiratory Ventilation, Less than 24 Consecutive Hours, Continuous Positive Airway Pressure (ICD-10-PCS; 2020-05-08)
PROC: 5A09357 Assistance with Respiratory Ventilation, Less than 24 Consecutive Hours, Continuous Positive Airway Pressure (ICD-10-PCS; 2020-05-09)
PROC: 5A09357 Assistance with Respiratory Ventilation, Less than 24 Consecutive Hours, Continuous Positive Airway Pressure (ICD-10-PCS; 2020-05-10)
PROC: 5A09357 Assistance with Respiratory Ventilation, Less than 24 Consecutive Hours, Continuous Positive Airway Pressure (ICD-10-PCS; 2020-05-11)
PROC: 5A09357 Assistance with Respiratory Ventilation, Less than 24 Consecutive Hours, Continuous Positive Airway Pressure (ICD-10-PCS; 2020-05-12)
DX: I13.0 Hypertensive heart and chronic kidney disease with heart failure and stage 1 through stage 4 chronic kidney disease, or unspecified chronic kidney disease (principal); J96.21 Acute and chronic respiratory failure with hypoxia; I50.43 Acute on chronic combined systolic (congestive) and diastolic (congestive) heart failure; J18.9 Pneumonia, unspecified organism; J96.22 Acute and chronic respiratory failure with hypercapnia; J45.901 Unspecified asthma with (acute) exacerbation; J44.0 Chronic obstructive pulmonary disease with (acute) lower respiratory infection; Z68.45 Body mass index [BMI] 70 or greater, adult; I25.10 Atherosclerotic heart disease of native coronary artery without angina pectoris; E66.01 Morbid (severe) obesity due to excess calories; G47.33 Obstructive sleep apnea (adult) (pediatric); F32.9 Major depressive disorder, single episode, unspecified; F41.9 Anxiety disorder, unspecified; Z20.828 Contact with and (suspected) exposure to other viral communicable diseases; G89.29 Other chronic pain; N18.2 Chronic kidney disease, stage 2 (mild); E11.65 Type 2 diabetes mellitus with hyperglycemia; L91.0 Hypertrophic scar; E11.22 Type 2 diabetes mellitus with diabetic chronic kidney disease; Z88.2 Allergy status to sulfonamides; Z88.8 Allergy status to other drugs, medicaments and biological substances; Z88.6 Allergy status to analgesic agent; Z91.040 Latex allergy status

== ENCOUNTER 2020-06-23 19:22 | Inpatient (IN) | payer MEDICAID ==
[~2020-06-23] VITALS: Ht 180.3 cm; Wt 244.9 kg
--- NOTE | ~2020-06-23 | CON ---
[address] [address] CONSULTATION Name: YOUNG JACOBSEN Room: [address] IN .R.#: [id number] Admission: 06/23/20 Attend Phys: Rodo Hughes, Discharge: Date of : 70 Report #: [id number] THIS REPORT FOR: //name// cc: BECCA Pulido family physician/PCP BECCA Pulido family physician/PCP ~ THIS REPORT FOR: //name// DATE OF SERVICE: 06/25/2020 REQUESTING PHYSICIAN: Dr. Alarcon. INDICATION FOR CONSULTATION: Shortness of breath. HISTORY OF PRESENT ILLNESS: A 49-year-old female has a history of extreme morbid obesity, body mass index is severely increased to 75.3. The patient does have a history of chronic hypercarbic respiratory failure with obstructive sleep apnea, obesity hypoventilation syndrome as well as bronchial asthma. The patient has chronic renal insufficiency as well. The patient is on a Trilogy as well as oxygen long-term. She also does have congestive heart failure. She only has a remote history of smoking. We had previously seen the patient in May. The patient at that time was diuresed. She was fluid overloaded and also was treated with steroids as well as broad-spectrum antibiotics and was discharged after improvement in her respiratory status. The patient is now admitted again 2 days ago. Presentation again was with shortness of breath. The patient since admission reports having had increase in shortness of breath despite the fact that she has been diuresed. The patient has been on nebulized bronchodilators as well. Since yesterday the patient is BiPAP dependent. She was on a BiPAP of 21/04 when I saw earlier with a variable tidal volume and was not sinking well. The patient was reporting increasing shortness of breath today. She does have a cough as well, not much sputum. No chest pain. She does not describe upper respiratory complaints. She has minor swelling of lower extremities. The patient has a limited peripheral IV access, which is in her upper arm. The patient answered to the negative for 12 questions for review of systems; however her ability to communicate is limited due to her being on the BiPAP. PAST MEDICAL HISTORY: Chronic hypoxemic and hypercarbic respiratory failure. Previous, pCO2 has ranged from 78 to the upper 40s. Bronchial asthma, her obstruction is not fully reversible in other words, this is a component of COPD as well. Chronic renal insufficiency. Her baseline creatinine is around 1.6, obstructive sleep apnea, obesity hypoventilation syndrome, various hernias, keloids, carpal tunnel, morbid obesity, coronary artery disease, chronic venous stasis/chronic insufficiency, depression, anxiety, [place] [address] CONSULTATION Name: YOUNG JACOBSEN Lianne Room: [address] IN ..#: [id number] Admission: 06/23/20 Attend Phys: Rodo Hughes, Discharge: Date of : 70 Report #: [id number] The patient just had an echocardiogram performed previously. She has had systolic congestive heart failure as well, now the left ventricular ejection fraction of 55-60%. The right heart was not well visualized on this echo. SOCIAL HISTORY: There is only a remote history of smoking. She says she was only an occasional smoker when she was younger. No known history of heavy alcohol use or illegal drug use. FAMILY HISTORY: There is no pertinent family history. CURRENT MEDICATIONS: List in [facility] reviewed. HOME MEDICATIONS: List also in [facility] reviewed. Also, antibiotics from last admission is reviewed. ALLERGIES: SHE IS REPORTED TO BE ALLERGIC TO BACTRIM WELL TETANUS TOXOID. SHE HAS HAD A RASH WITH LATEX. SHE HAS HAD ITCHING WITH MORPHINE, WHICH MAY BE A SIDE EFFECT AND NOT AN ALLERGY. SHE HAS HAD ITCHING WITH TYPE OF TAPE WELL. PHYSICAL EXAMINATION: GENERAL: She is drowsy, but fully arousable. She was on a BiPAP of 16/8 with 40% FiO2, variable respiratory rate from the one-teens all the way up to the 30s. VITAL SIGNS: Had a pulse of 83, blood pressure 152/86, saturating in the mid 90s, last 95% with a temperature of 37.1. HEENT: Head is normocephalic and atraumatic. Pupils are equal and reactive. She has a narrow airway around Mallampati 4. NECK: Does not show raised JVP, asymmetry, mass or lymph nodes. CHEST: Breath sounds bilaterally equal, but significantly decreased. Expirations are prolonged. I do not hear any added sounds. HEART: Regular. There is no murmur. ABDOMEN: Protuberant, but nontender. EXTREMITIES: Lower extremities show trace to 1+ edema bilaterally. There is no calf tenderness. SKIN: Dry and intact. NEUROLOGICAL: Moves all extremities bilaterally equally and spontaneously with no focal deficit identified. LABORATORY DATA: The patient's chest x-ray as well as lab work are in [facility] and these are reviewed and are as discussed below with assessment and plan, elevation in creatinine, beyond her baseline as well as a mild increase in pulmonary vascular congestion as well as infiltrates are noted. ASSESSMENT AND PLAN: 1. Pkynw-is-hhijusa hypoxemic and hypercarbic [place] [address] CONSULTATION Name: YOUNG JACOBSEN Room: [address] IN [facility].#: [id number] Admission: 06/23/20 Attend Phys: Rodo Hughes, Discharge: Date of : 70 Report #: [id number] is on a Trilogy as well as oxygen long-term. Therefore, we will go ahead and switch her BiPAP over to average volume assured pressure support. I did obtain a chest x-ray as above. we possibly could get an ABG today, however it not policy change clerk. I therefore did not order now. If she fails to improve, then I will order an ABG. 2. Fluid overload/chronic renal insufficiency/congestive heart failure. Note that the patient has had systolic congestive heart failure in the past. She does still have some fluid overload; however, if she does appear to have significant chronic changes and likely have some infiltrates as well. Therefore, to me she appears only mildly fluid overloaded at this time. She is on diuretics as per the Cardiology Service. I will go ahead and obtain a BMP, will give her additional magnesium sulfate as well if needed, we can give additional potassium. 3. Bronchial asthma exacerbation/possible component of COPD. Start Solu-Medrol, continue nebulized bronchodilators. 4. Pulmonary infiltrates, started Levaquin. Christy cultures are ordered. 5. Obstructive sleep apnea/obesity hypoventilation syndrome. See discussion above. 6. Possible underlying interstitial lung disease. I considered this possibility. If she improves, then we will need to assess as to whether a CT chest is feasible with her weight. 7. Edema. I would obtain D-dimer. If elevated, will do venous Dopplers. 8. High aspiration risk. If the patient is able to come off the BiPAP and take orally. Recommend observing aspiration precautions. 9. Diabetes. I am ordering Solu-Medrol as above. The patient may as a result, need more insulin. 10. Deep vein thrombosis prophylaxis. I will check for contraindications. If None then I intended to start Lovenox in the prophylactic dose. 11. The patient is critically ill at this time. Total time spent providing critical care to this patient today is 41 minutes. By: [id number] Joaquin MD /nt
[~2020-06-23 19:22] MED LIST changes: +AUGMENTIN 875-1 EACH PO; +CETIRIZINE HCL5 MG PO; +LANTUS SUBQ; +LIPITOR40 MG PO; +NEURONTIN300 MG PO; +NITROSTAT0.4 MG SUBLING; +OMEPRAZOLE20 M2 PO; +SERTRALINE HCL50 MG PO; +VICTOZA0.6 MG/0.1 SUBQ; +VITAMIN D250 MCG PO; +VITAMIN D3250 MC1 PO; +ZANAFLEX2 M1 PO
[2020-06-23 19:34] VITALS: BP 169/86
[2020-06-23] MEDS ORDERED: ALBUTEROL2.5 MG/31 INH (19:42)
[2020-06-23] MEDS ORDERED: NYSTATIN100000 UNI SW&SWALLOW (19:43)
[2020-06-23 20:16] LABS: HEMATOCRIT 32.2 % (37.0-47.0); HEMOGLOBIN 9.9 gm/dL (12.0-15.0); MCH 25.2 pg (26.0-34.0); MCHC 30.8 g/dL (28.0-37.0); MCV 81.9 fL (80.0-100.0); MPV 7.5 fl. (7.2-11.1); NUCLEATED RBCS 1 /100WBC; PLATELET COUNT* 318 thou/uL (150-400); RBC 3.93 mil/uL (4.20-5.00); RDW-CV 19.3 % (10.5-14.5); WBC 12.5 thou/uL (4.0-11.0)
[2020-06-23 20:23] LABS: CREATININE 1.6 mg/dL (0.6-1.3); POTASSIUM 3.2 mmol/L (3.5-5.1)
[2020-06-23 20:34] LABS: ALBUMIN 2.9 g/dL (3.4-5.0); TOTAL BILIRUBIN 0.5 mg/dL (<0.1-1.0); TOTAL PROTEIN 6.9 g/dL (6.4-8.2)
[2020-06-23 20:40] LABS: ABSOLUTE BASOPHILS 0.1 thou/uL (0.0-0.2); ABSOLUTE EOSINOPHILS 0.4 thou/uL (0.0-0.7); ABSOLUTE LYMPHOCYTES 0.6 thou/uL (0.8-5.3); ABSOLUTE MONOCYTES 0.3 thou/uL (0.0-1.2); ABSOLUTE NEUTROPHILS 11.1 thou/uL (1.6-8.1); PLATELET ESTIMATE ADEQUATE
[2020-06-23 23:20] VITALS: BP 156/89
[2020-06-24 04:00] VITALS: BP 149/72
[2020-06-24 05:32] LABS: URINE BILIRUBIN NEGATIVE (Negative); URINE BLOOD 2+ (Negative); URINE CLARITY CLEAR; URINE COLOR YELLOW; URINE GLUCOSE-RANDOM NEGATIVE (Negative); URINE KETONES TRACE (Negative); URINE LEUKOCYTES-REFLEX NEGATIVE (Negative); URINE NITRITE-REFLEX NEGATIVE (Negative); URINE PROTEIN 2+ (Negative); URINE SPECIFIC GRAVITY 1.025 (1.005-1.030); URINE UROBILINOGEN 0.2 E.U./dl (0.2-1.0)
[2020-06-24 05:47] LABS: BACTERIA-REFLEX 1-9 Few /HPF (None Seen); CASTS None Seen /LPF (None Seen); CRYSTALS None Seen /LPF (None Seen); MUCUS 0-3 Light strn/LPF (None Seen); SQUAMOUS 0-3 Few /LPF (0-3); URINE RBC 3-10 Few /HPF (0-2); URINE WBC-REFLEX 0-5 Rare /HPF (0-5)
[2020-06-24 08:00] VITALS: BP 196/112
--- NOTE | 2020-06-24 09:54 | EKG ---
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
[2020-06-24 10:09] LABS: ABSOLUTE BASOPHILS 0.1 thou/uL (0.0-0.2); ABSOLUTE MONOCYTES 0.3 thou/uL (0.0-1.2); ABSOLUTE NEUTROPHILS 15.4 thou/uL (1.6-8.1); BASOPHILS 0.6 %; EOSINOPHILS 0.1 %; HEMATOCRIT 33.5 % (37.0-47.0); HEMOGLOBIN 10.3 gm/dL (12.0-15.0); LYMPHOCYTES 5.8 %; MCH 25.2 pg (26.0-34.0); MCHC 30.8 g/dL (28.0-37.0); MCV 81.8 fL (80.0-100.0); MONOCYTES 1.6 %; MPV 7.9 fl. (7.2-11.1); NUCLEATED RBCS 0 /100WBC; PLATELET COUNT* 319 thou/uL (150-400); POLYS 91.9 %; RBC 4.09 mil/uL (4.20-5.00); RDW-CV 18.5 % (10.5-14.5); WBC 16.7 thou/uL (4.0-11.0)
[2020-06-24 10:20] LABS: ANION GAP 10 mmol/L (7-16); BUN 16 mg/dL (7-18); CALCIUM 9.3 mg/dL (8.5-10.1); CHLORIDE 101 mmol/L (98-107); CHOLESTEROL 137 mg/dL (<200); CO2 32 mmol/L (21-32); CREATININE 1.5 mg/dL (0.6-1.3); GLUCOSE 283 mg/dL (70-99); HDL CHOLESTEROL 44 mg/dL (>40); LDL CHOLESTEROL 70 mg/dL (<100); POTASSIUM 3.5 mmol/L (3.5-5.1); SERUM ASSESSMENT Clear; SODIUM 143 mmol/L (136-145); TC:HDL 3.1 Ratio (Not establshd); TRIGLYCERIDE 116 mg/dL (<150); VLDL 23 mg/dL (<40)
[2020-06-24 11:58] VITALS: BP 163/80
--- NOTE | 2020-06-24 12:49 | 2DMMODE ---
[place] [address] 2 D/M-MODE ECHOCARDIOGRAM Name: YOUNG JACOBSEN Room: [address] IN [facility].#: [id number] Admission: 06/23/20 Attend Phys: Rodo Cartwright Discharge: Date of : 70 Date of Service: 06/24/20 1249 Report #: [id number] THIS REPORT FOR: cc: FAM - No family physician/PCP FAM - No family physician/PCP Dejan Burdick MD [facility] ~ APPROVED REPORT Study performed: 06/24/2020 10:59:19 EXAM: Limited 2D Echocardiogram and m mode Patient Location: Bedside BSA: 3.22 HR: 70 bpm BP: 196/112 mmHg Other Information Study Quality: Fair Technically limited study due to body habitus, inability to position patient. Indications Dyspnea Echo Enhancing Agent Indication: Endocardial border delineation Agent(s) / Amount(s) Used: Optison 4 cc 2D Dimensions IVSd: 14.76 (7-11mm) LVOT Diam: 31.33 (18-24mm) LVDd: 60.83 mm PWd: 14.66 (7-11mm) Ascending Ao: 32.87 (22-36mm) LVDs: 44.07 (25-40mm) Aortic Root: 34.60 mm Left Ventricle Left ventricle is dilated. endocardium not well visualized making segmental wall motion analysis difficult Moderate concentric left ventricular hypertrophy. The left ventricular systolic function is normal. The left ventricular ejection fraction is within the normal range. LVEF is 55-60%. Right Ventricle Right ventricle [place] [address] 2 D/M-MODE ECHOCARDIOGRAM Name: YOUNG JACOBSEN Room: [address] IN [facility]#: [id number] Admission: 06/23/20 Attend Phys: Rodo Cartwright Discharge: Date of : 70 Date of Service: 06/24/20 1249 Report #: [id number] Atria The left atrium size is normal. Right atrium is not well visualized. Aortic Valve The aortic valve is normal in structure. Mitral Valve The mitral valve is normal in structure. Tricuspid Valve Tricuspid valve is not well visualized. Pulmonic Valve Pulmonic valve is not well visualized. Great Vessels The aortic root is normal in size. IVC is not well visualized. Pericardium There is no pericardial effusion. <Conclusion> Moderate concentric left ventricular hypertrophy. LVEF is 55-60%. Right ventricle is mildly dilated. <ELECTRONICALLY SIGNED> By: Dejan Burdick MD, FACC 06/24/20 1249 1249 1249 Dejan Burdick MD, FACC /INF
--- NOTE | 2020-06-24 14:36 | CON ---
[address] [address] CONSULTATION Name: YOUNG JACOBSEN Room: [address] IN M.R.#: [id number] Admission: 06/23/20 Attend Phys: Rodo Hughes, Discharge: Date of : 70 Report #: [id number] THIS REPORT FOR: //name// cc: BECCA Pulido family physician/PCP BECCA - Tess family physician/PCP ~ THIS REPORT FOR: //name// DATE OF SERVICE: 06/24/2020 CARDIOLOGY CONSULTATION HISTORY OF PRESENT ILLNESS: The patient is a 49-year-old single black female who I was asked to see in the hospital after she complained of being short of breath. The patient has an extensive and complicated past medical history. She has a long history of diabetes and hypertension. She is also morbidly obese, standing 5 feet 11 inches and weighing over 500 pounds. She is not very active at this time and uses a walker. She was actually admitted here to [facility] in February with shortness of breath. She has had multiple echocardiograms performed here at [facility]. The first was back in 2010 that showed mild decrease in left ventricular systolic function. Echocardiogram in 07/2018 also done here at [facility] showed ejection fraction at the lower limits of normal at 50%. Her last echocardiogram just done in December of this year, suggested an ejection fraction of 40% with left ventricular hypertrophy, left atrial enlargement. The patient came to the Emergency Room yesterday. She states she had a rash, it was itching. She also noticed some shortness of breath. She is admitted for further evaluation and treatment. She denies any chest pain, palpitations, or syncope. She does have lower extremity edema. Denied any fever or cough. PAST MEDICAL HISTORY: She has had previous carpal tunnel surgery, hernia surgery, cholecystectomy. She has a history of COPD, chronic kidney disease, diabetes, hypertension, sleep apnea, depression. MEDICATIONS: Consist of albuterol inhaler, BiPAP, amlodipine, aspirin, Lipitor, carvedilol, clonidine, Lasix, Neurontin, hydralazine, insulin, omeprazole, Zoloft, tramadol. ALLERGIES: SHE HAS INTOLERANCE TO MORPHINE AND SULFA DRUGS. FAMILY HISTORY: Her mother had congestive heart failure. SOCIAL HISTORY: She is single, lives with a goddaughter in [place]. She smokes only rarely, drinks alcohol. 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 REVIEW OF SYSTEMS: She has had no history of stroke. She has COPD. No history of liver disease. She has chronic kidney disease[place] [address] CONSULTATION Name: YOUNG JACOBSEN Room: [address] IN ..#: [id number] Admission: 06/23/20 Attend Phys: Rodo Hughes, Discharge: Date of : 70 Report #: [id number] cancer in the past. She saw a psychiatrist in the past for depression. PHYSICAL EXAMINATION: GENERAL: Revealed a large middle-aged female lying in bed. She appeared in no acute distress. VITAL SIGNS: She had a blood pressure of 150/90, pulse 80, she was afebrile. HEENT: She was anicteric. Conjunctivae are pink. Mucous membranes moist. NECK: Veins difficult to assess due to obesity. CHEST: Clear to auscultation. CARDIOVASCULAR: Regular rate and rhythm, no murmur. ABDOMEN: Obese. EXTREMITIES: Had trace edema. SKIN: Cool and dry. NEUROLOGIC: Nonfocal. RADIOLOGICAL DATA: Her ECG showed a sinus rhythm with nonspecific intraventricular conduction defect. Her workup yesterday, she had a portable chest x-ray that showed cardiomegaly, pulmonary vascular congestion. She had a venous duplex scan last month because of edema that showed no DVT. LABORATORY DATA: Sodium 141, potassium 3.2, BUN 15, creatinine 1.6, it has been as high as 2.2 in the past. Glucose 170. Liver function studies were normal. Albumin 2.9. Troponin 0.18, it was 0.46 in December. Her white blood cell count 12.5 and hemoglobin 9.9. IMPRESSION AND RECOMMENDATIONS: 1. Systolic heart failure. Recommend repeat echocardiogram. I would not recommend an SHA inhibitor nor ARB because of chronic kidney disease. The patient currently is on a beta ariel and hydralazine. 2. Hypertension. The patient is on a calcium ariel, beta ariel, clonidine, hydralazine. 3. Sleep apnea. 4. Chronic obstructive pulmonary disease. The patient on bronchodilators. 5. Hyperlipidemia. The patient is on a statin drug. 6. Chronic kidney disease. 7. Sleep apnea. 8. History of depression. 9. Morbid obesity. The patient's activity is very limited. <ELECTRONICALLY SIGNED> By: Dejan Burdick MD, FACC 06/24/20 1436 0924Dejan Burdick MD, FACC /nt
[2020-06-24 15:55] VITALS: BP 159/80
[2020-06-24 19:30] VITALS: BP 148/76
[2020-06-25 00:20] VITALS: BP 152/69
[2020-06-25 04:00] VITALS: BP 154/90
[2020-06-25 05:14] LABS: ABSOLUTE BASOPHILS 0.1 thou/uL (0.0-0.2); ABSOLUTE LYMPHOCYTES 1.4 thou/uL (0.8-5.3); ABSOLUTE MONOCYTES 1.1 thou/uL (0.0-1.2); ABSOLUTE NEUTROPHILS 12.8 thou/uL (1.6-8.1); BASOPHILS 0.3 %; EOSINOPHILS 0.2 %; HEMATOCRIT 29.3 % (37.0-47.0); LYMPHOCYTES 9.4 %; MCHC 30.7 g/dL (28.0-37.0); MCV 81.5 fL (80.0-100.0); MONOCYTES 7.3 %; MPV 7.8 fl. (7.2-11.1); NUCLEATED RBCS 0 /100WBC; PLATELET COUNT* 307 thou/uL (150-400); POLYS 82.8 %; RBC 3.59 mil/uL (4.20-5.00); RDW-CV 19.6 % (10.5-14.5); WBC 15.4 thou/uL (4.0-11.0)
[2020-06-25 05:27] LABS: CALCIUM 8.5 mg/dL (8.5-10.1); CREATININE 1.8 mg/dL (0.6-1.3); POTASSIUM 3.2 mmol/L (3.5-5.1)
[2020-06-25 09:22] VITALS: BP 150/86
[2020-06-25 13:12] VITALS: BP 152/86
[2020-06-25 16:00] VITALS: BP 126/72
[2020-06-25 17:03] LABS: CALCIUM 9.2 mg/dL (8.5-10.1); CREATININE 1.7 mg/dL (0.6-1.3); POTASSIUM 3.3 mmol/L (3.5-5.1)
[2020-06-25 17:08] LABS: APTT 22.2 Seconds (25.0-31.3); INR 1.1; PROTIME 11.4 Seconds (9.20-11.50)
[2020-06-25 19:40] VITALS: BP 173/103
[2020-06-26 00:06] VITALS: BP 164/83
[2020-06-26 04:26] VITALS: BP 141/96
[2020-06-26 04:26] LABS: ABSOLUTE LYMPHOCYTES 0.8 thou/uL (0.8-5.3); ABSOLUTE MONOCYTES 0.3 thou/uL (0.0-1.2); ABSOLUTE NEUTROPHILS 15.3 thou/uL (1.6-8.1); BASOPHILS 0.3 %; EOSINOPHILS 0.1 %; HEMOGLOBIN 9.9 gm/dL (12.0-15.0); LYMPHOCYTES 4.9 %; MCH 25.1 pg (26.0-34.0); MCV 81.2 fL (80.0-100.0); MONOCYTES 1.6 %; MPV 7.9 fl. (7.2-11.1); NUCLEATED RBCS 0 /100WBC; PLATELET COUNT* 333 thou/uL (150-400); POLYS 93.1 %; RBC 3.94 mil/uL (4.20-5.00); RDW-CV 19.9 % (10.5-14.5); WBC 16.4 thou/uL (4.0-11.0)
[2020-06-26 04:33] LABS: CALCIUM 9.3 mg/dL (8.5-10.1); CREATININE 1.7 mg/dL (0.6-1.3); MAGNESIUM 1.9 mg/dL (1.8-2.4); POTASSIUM 3.8 mmol/L (3.5-5.1)
[2020-06-26 07:52] VITALS: BP 184/98
[2020-06-26 11:32] VITALS: BP 155/100
[2020-06-26 16:00] VITALS: BP 167/83
[2020-06-26 20:00] VITALS: BP 166/94
[2020-06-27 00:41] VITALS: BP 130/69
[2020-06-27 04:22] VITALS: BP 158/84
[2020-06-27 05:28] LABS: CALCIUM 9.2 mg/dL (8.5-10.1); CREATININE 1.7 mg/dL (0.6-1.3); MAGNESIUM 1.8 mg/dL (1.8-2.4); POTASSIUM 3.7 mmol/L (3.5-5.1)
[2020-06-27 08:15] VITALS: BP 177/94
[2020-06-27 12:13] VITALS: BP 174/96
[2020-06-27 16:00] VITALS: BP 166/94
[2020-06-27 20:13] VITALS: BP 145/65
[2020-06-28] VITALS: BP 143/66
[2020-06-28 04:00] VITALS: BP 149/68
[2020-06-28 08:21] LABS: HEMATOCRIT 33.9 % (37.0-47.0); HEMOGLOBIN 10.2 gm/dL (12.0-15.0); MCH 24.8 pg (26.0-34.0); MCHC 30.3 g/dL (28.0-37.0); MPV 7.7 fl. (7.2-11.1); NUCLEATED RBCS 0 /100WBC; PLATELET COUNT* 343 thou/uL (150-400); RBC 4.13 mil/uL (4.20-5.00); RDW-CV 20.2 % (10.5-14.5); WBC 17.3 thou/uL (4.0-11.0)
[2020-06-28 08:36] LABS: ALBUMIN 2.8 g/dL (3.4-5.0); CALCIUM 8.7 mg/dL (8.5-10.1); CREATININE 1.8 mg/dL (0.6-1.3); POTASSIUM 3.8 mmol/L (3.5-5.1); TOTAL BILIRUBIN 0.3 mg/dL (<0.1-1.0); TOTAL PROTEIN 6.8 g/dL (6.4-8.2)
[2020-06-28 08:45] VITALS: BP 179/76
[2020-06-28 09:01] LABS: ABSOLUTE LYMPHOCYTES 1.2 thou/uL (0.8-5.3); ABSOLUTE MONOCYTES 0.7 thou/uL (0.0-1.2); ABSOLUTE NEUTROPHILS 15.4 thou/uL (1.6-8.1); HYPOCHROMASIA 1+; MICROCYTES 1+; PLATELET ESTIMATE ADEQUATE
[2020-06-28 09:02] LABS: ANISOCYTOSIS 1+
[2020-06-28] MEDS ORDERED: HYDROCORTISONE3011 TOP (09:58)
[2020-06-28] MEDS ORDERED: LEVOFLOXACIN750 MG PO (09:59)
[2020-06-28] MEDS ORDERED: COREG25 MG PO (09:59)
[2020-06-28] MEDS ORDERED: FLORASTOR250 MG PO (09:59)
[2020-06-28] MEDS ORDERED: DIFLUCAN100 MG PO (09:59)
[2020-06-28 12:50] VITALS: BP 166/91
== END 2020-06-28 17:05 | DRG 291 ==
LOC: M.ERS 19:22 → M.TBA-ER 21:50 → M.2W 23:09
PROVIDERS: Internal Medicine; Internal Medicine Cardiovascular Disease; Internal Medicine Critical Care Medicine; Personal Emergency Response Attendant; ADMIT Family Medicine; ATTEND Family Medicine
PROC: 5A09357 Assistance with Respiratory Ventilation, Less than 24 Consecutive Hours, Continuous Positive Airway Pressure (ICD-10-PCS; principal; 2020-06-23)
PROC: 5A09457 Assistance with Respiratory Ventilation, 24-96 Consecutive Hours, Continuous Positive Airway Pressure (ICD-10-PCS; 2020-06-24)
PROC: 5A09357 Assistance with Respiratory Ventilation, Less than 24 Consecutive Hours, Continuous Positive Airway Pressure (ICD-10-PCS; 2020-06-26)
PROC: 5A09357 Assistance with Respiratory Ventilation, Less than 24 Consecutive Hours, Continuous Positive Airway Pressure (ICD-10-PCS; 2020-06-27)
PROC: 5A09357 Assistance with Respiratory Ventilation, Less than 24 Consecutive Hours, Continuous Positive Airway Pressure (ICD-10-PCS; 2020-06-28)
DX: I13.0 Hypertensive heart and chronic kidney disease with heart failure and stage 1 through stage 4 chronic kidney disease, or unspecified chronic kidney disease (principal); I50.23 Acute on chronic systolic (congestive) heart failure; J96.22 Acute and chronic respiratory failure with hypercapnia; J96.21 Acute and chronic respiratory failure with hypoxia; E66.2 Morbid (severe) obesity with alveolar hypoventilation; Z68.45 Body mass index [BMI] 70 or greater, adult; I50.32 Chronic diastolic (congestive) heart failure; J45.901 Unspecified asthma with (acute) exacerbation; D64.9 Anemia, unspecified; I25.10 Atherosclerotic heart disease of native coronary artery without angina pectoris; F41.9 Anxiety disorder, unspecified; F32.9 Major depressive disorder, single episode, unspecified; K58.9 Irritable bowel syndrome, unspecified; E11.22 Type 2 diabetes mellitus with diabetic chronic kidney disease; J44.9 Chronic obstructive pulmonary disease, unspecified; L29.9 Pruritus, unspecified; E78.5 Hyperlipidemia, unspecified; G89.29 Other chronic pain; N93.9 Abnormal uterine and vaginal bleeding, unspecified; N18.30 Chronic kidney disease, stage 3 unspecified; I87.8 Other specified disorders of veins; Z20.828 Contact with and (suspected) exposure to other viral communicable diseases; Z79.4 Long term (current) use of insulin; Z79.82 Long term (current) use of aspirin; Z79.899 Other long term (current) drug therapy; Z88.1 Allergy status to other antibiotic agents; Z91.040 Latex allergy status; Z88.5 Allergy status to narcotic agent; Z88.2 Allergy status to sulfonamides; Z88.7 Allergy status to serum and vaccine; Z88.8 Allergy status to other drugs, medicaments and biological substances; Z91.09 Other allergy status, other than to drugs and biological substances; Z90.49 Acquired absence of other specified parts of digestive tract; Z87.891 Personal history of nicotine dependence; Z23 Encounter for immunization

== ENCOUNTER 2020-06-28 16:25 | Inpatient (IN) | payer MEDICAID ==
[~2020-06-28] VITALS: Ht 180.3 cm; Wt 250.8 kg
[~2020-06-28 16:25] MED LIST changes: +DIFLUCAN100 MG PO; +FLORASTOR250 MG PO; +HYDROCORTISONE3011 TOP; +LEVOFLOXACIN750 MG PO; +NYSTATIN100000 UNI SW&SWALLOW
[2020-06-28 18:21] VITALS: BP 167/87
--- NOTE | 2020-06-28 18:56 | NUR ---
PATIENT ARRIVED TO UNIT ALERT AND ORIENTED. ORIENTED TO ROOM AND BED CONTROLS. ON SPECIALTY BED. ASSESSMENT CHARTED. CALL LIGHT WITHIN REACH.
[2020-06-28 19:45] VITALS: BP 155/68
--- NOTE | 2020-06-28 19:59 | NUR ---
REPORT CALLED [facility]RET[facility] ON REHAB UNIT. PT TRANSFER VIA BARIATRIC BED TO REHAB AT 1715. PT REMAINS ALERT, ORIENTED AND COOPERATIVE. BELONGINGS FROM ROOM, BIPAP MACHINE AND MEDICATIONS WITH PATIENT. PT STABLE AND TOLERATED TRANSFER WITHOUT PROBLEM
--- NOTE | 2020-06-29 01:25 | NUR ---
ASSUMED CARE AT 1930. PATIENT TURNS SELF. ON BARIATRIC BED. O2 4L/NC. USES BIPAP AT [facility] WITH 4L/NC BLED IN. TAKES PILLS WHOLE WITH WATER. BRENNAN DRAINING RACHELL URINE. NO FURTHER C/O BLEEDING TO MARCEL AREA. NO C/O PAIN. HAS MANY KELOIDS ON BODY. LT EAR HAS BANDAIDS WHERE OXYGEN TUBING IRRITATES HER. NO C/O PAIN. HOURLY ROUNDS CONTINUE. BED ALARM ON. CALL LITE IN REACH.
[2020-06-29 06:20] LABS: HEMATOCRIT 31.6 % (37.0-47.0); HEMOGLOBIN 9.9 gm/dL (12.0-15.0); MCH 25.7 pg (26.0-34.0); MCHC 31.4 g/dL (28.0-37.0); MCV 81.7 fL (80.0-100.0); MPV 7.7 fl. (7.2-11.1); RBC 3.87 mil/uL (4.20-5.00); RDW-CV 19.6 % (10.5-14.5); WBC 13.9 thou/uL (4.0-11.0)
--- NOTE | 2020-06-29 06:45 | NUR ---
RESTED IN BED ALL NIGHT WEARING BIPAP. MOVES SELF IN BED. NO C/O PAIN. BRENNAN DRAINING RACHELL URINE. HOURLY ROUNDS CONTINUE. BED ALARM ON. CALL LITE IN REACH.
[2020-06-29 06:56] LABS: CALCIUM 8.6 mg/dL (8.5-10.1); CREATININE 1.7 mg/dL (0.6-1.3); POTASSIUM 3.3 mmol/L (3.5-5.1)
[2020-06-29 09:01] VITALS: BP 126/73
--- NOTE | 2020-06-29 16:09 | NUR ---
ALERT AND ORIENTED X4. UP WITH 1 ASSIST AND WALKER TO BEDSIDE COMMODE. PO PAIN MEDICATION HELPFUL WITH KNEE PAIN. STARTED ON 2000ML FLUID RESTRICTIONS. HAS BRENNAN CATHETER PATENT WITH CLEAR YELLOW URINE. CONTINENT OF BOWELS. REMAINS ON O2 AT 4L/NC TO KEEP O2 SAT AT REST GREATER THAN 90%. USING SPECIALTY BED. USES CALL LIGHT WHEN NEEDING ASSIST.
[2020-06-29 19:00] VITALS: BP 154/85
--- NOTE | 2020-06-29 22:07 | NUR ---
ASSUMED CARE AT 1930. PATIENT RESTING IN BED WATCHING TV AND PHONE. TURNS SELF IN BED. ON BARIATRIC BED. TAKES PILLS WHOLE WITH WATER. ON FLUID RESTRICTION, DECIDED THAT THE LAST 250 ML THAT WAS ALLOTED FOR CRIB ATTENDANT WOULD BE ENSURE INSTEAD OF WATER. NEW MED OF VOLTAREN OINTMENT APPLIED TO BILAT KNEES, EXPLAINED ACTION AND PURPOSE, PATIENT VERBALIZED UNDERSTANDING. MEDICATED FOR KNEE PAIN AT BEGINNING OF SHIFT, WITH SOME RELIEF. HAS BEEN WEARING BIPAP ALL SHIFT, MOVES IT TO TAKE PILLS OR DRINK FLUIDS AND ABLE TO REAPPLY MASK PER SELF. HOURLY ROUNDS CONTINUE. BED ALARM ON. CALL LITE IN REACH.
--- NOTE | 2020-06-30 05:16 | NUR ---
RESTED IN BED ALL NIGHT. APPEARS SLEEPING AT TIMES. TURNS AND POSITIONS SELF. WORE BIPAP AT ALL TIMES THIS SHIFT. BRENNAN DRAINING RACHELL URINE. HAS MAINTAINED FLUID RESTRICTION. MEDICATED FOR PAIN AT BEGINNING OF THE SHIFT. USED VOLTAREN CREAM AT HS. HOURLY ROUNDS CONTINUE. BED ALARM ON. CALL LITE IN REACH.
[2020-06-30 08:01] VITALS: BP 110/71
--- NOTE | 2020-06-30 15:15 | NUR ---
ALERT AND ORIENTED X4. UP WITH 1 ASSIST TO BED SIDE COMMODE. CONTINENT OF BOWEL. HAS BRENNAN CATHETER PATENT WITH CLEAR YELLOW URINE. PO PAIN MEIDICATION GIVEN FOR C/O BACK AND KNEES PAIN. PAIN PATCH APPLIED TO RIGHT KNEE. VOTAREN GEL APPLIED TO BILATERAL KNEES. ICE APPLIED TO LOWER BACK. WITH SOME RELIEF WITH PAIN. REMAINS ON O2 AT 4L/NC TO O2 SATS GREATER THAN 90%. USES CALL LIGHT WHEN NEEDING ASSIST.
[2020-06-30 19:29] VITALS: BP 135/73
--- NOTE | 2020-06-30 23:23 | NUR ---
ASSUMED CARE AT 1930. PATIENT RESTING IN BED WITH O2 4L/NC. WANTS TO WAIT UNTIL HS BREATHING TREATMENT TO APPLY BIPAP. STATES FEELING BETTER TODAY. MOVES WELL IN BED. VOLTAREN OINT APPLIED TO BILAT KNEES. LIDO PATCH REMOVED BY PATIENT. TAKES PILLS WHOLE WITH WATER. MEDICATED FOR PAIN AT HS. BRENNAN DRAINING RACHELL URINE. CHOSE TO TAKE ENSURE PART OF HER FLUID RESTRICION, THUS 250 ENSURE AND 350 LEFT ON TONIGHT'S FLUID RESTRICTION. CALL LITE IN REACH. BED ALARM ON. HOURLY ROUNDS CONTINUE.
[2020-07-01 05:20] LABS: HEMATOCRIT 33.8 % (37.0-47.0); HEMOGLOBIN 10.4 gm/dL (12.0-15.0); MCH 25.1 pg (26.0-34.0); MCHC 30.8 g/dL (28.0-37.0); MCV 81.6 fL (80.0-100.0); MPV 7.5 fl. (7.2-11.1); RBC 4.14 mil/uL (4.20-5.00); RDW-CV 20.3 % (10.5-14.5); WBC 11.6 thou/uL (4.0-11.0)
--- NOTE | 2020-07-01 05:22 | NUR ---
APPEARED SLEEPING MOST OF THE NIGHT. TURNS SELF. NO FURTHER C/O PAIN. WORE BIPAP THROUGH NIGHT. BRENNAN DRAINING RACHELL URINE. CALL LITE IN REACH. BED ALARM ON. HOURLY ROUNDS CONTINUE.
[2020-07-01 05:34] LABS: CALCIUM 8.6 mg/dL (8.5-10.1); CREATININE 1.9 mg/dL (0.6-1.3); MAGNESIUM 2.3 mg/dL (1.8-2.4); POTASSIUM 3.2 mmol/L (3.5-5.1)
[2020-07-01 08:47] VITALS: BP 115/65
--- NOTE | 2020-07-01 14:34 | NUR ---
INITIAL ASSESSMENT: PATIENT ADMITTED TO THE IN REHAB UNIT ON 06/28/20 WITH A DIAGNOSIS OF DEBILITY. PT ALERT AND ORIENTED. PT INDEPENDENT WITH ADL'S. PT RESIDES AT HOME WITH EXTENDED FAMILY MEMBER AND SHE IS ABLE TO ASSIST 'WITH SOMETHINGS IF NEEDED'. PT USES A WALKER FOR MOBILIT. PT HAS HOME OXYGEN ([facility]) AND TRILOGY ([facility]). PT HAS NO HX OF HH OR SNF. PT CURRENTLY ON-SERVICE WITH [facility] ([facility] CAREGIVER SERVICE 2X'S WK/3.5 HRS PER DAY) AND WILL CONTINUE THOSE HOMEMAKER SERVICES AT D/C. PT IS ONLY ABLE TO HAVE HH WITH NURSING IF ORDERED AT D/C SHE ONLY HAS MEDICAID INSURANCE. CM ORIENTED THE PT TO REHAB UNIT AND PRECESSES, TEAM CONFRENCE MEETING, RESIDENTS RIGHTS INFO, AND TO THE ROLE OF CM. CM WILL REMAIN AVAILABLE TO ASSIST WITH D/C PLANNING.
--- NOTE | 2020-07-01 17:48 | NUR ---
PT GETTING UP WITH OUT CALLING FOR ASSISTANCE. ALARM PLACED ON BED. PT EDUCATED ON NEED TO CALL FOR ASSISTANCE. 1.5L FR. LATEX PRECAUTIONS IN PLACE. PRN PAIN MEDICATION GIVEN PER PT REQUEST.
[2020-07-01 19:00] VITALS: BP 175/83
--- NOTE | 2020-07-01 20:20 | NUR ---
IN BED TALKING ON THE PHONE AND WATCHING TV. 02 NASAL CANNULA AT 4 LITERS. TRAMADOL GIVEN FOR COMPLAINT OF BILATERAL KNEE PAIN RATED "4". ALSO APPLIED VOLTAREN CREAM TO KNEES PER REQUEST. VOIDS PER BEDSIDE COMMODE WITH STANDBY ASSIST. PROVIDED STRAWBERRY ENSURE PER REQUEST. CALL LIGHT WITHIN REACH.
--- NOTE | 2020-07-02 05:01 | NUR ---
NO FURTHER COMPLAINT OF PAIN. RESTED ON/OFF. BLOOD GLUCOSE CHECKED AT 0156 PER PATIENT'T REQUEST AND WAS 55. JUICE AND JUANA CRACKERS PROVIDED. BLOOD GLUCOSE AT 0215 WAS 74. PATIENT STATES SHE WAS AFRAID TO GO TO SLEEP AFTER HER BLOOD GLUCOSE LEVEL DROPPED. WORE BIPAP DURING THE NIGHT. UP TO THE BEDSIDE COMMODE X 2 DURING THE NIGHT TO VOID. IN SPECIALTY BED. HOURLY ROUNDING IN PROGRESS.
[2020-07-02 07:53] VITALS: BP 127/70
--- NOTE | 2020-07-02 14:34 | NUR ---
CM SPOKE TO THE PT TO DISCUSS AND QUESTIONS OR CONCERNS THAT SHE MAY HAVE FOR TOMORROWS TEAM CONFRENCE MEETING. PT QUESTIONED IF SHE WOULD BE ABLE TO GET A BIGGER COMMODE FOR HOME USE AND A ROLLATOR WALKER SHE NEEDS FREQUENT REST BREAKS WHEN WALKING. CM INFORMED PT THAT MEDICAID MAY NOT PAY FOR ADDITIONAL DME SHE HAD JUST GOTTEN THIS DME THROUGH HER INSURANCE WITHIN THE PAST YEAR. CM TO CONTACT DME COMPANY TO DETERMINE PT'S ELIGABILITY FOR NEWER DME. CM TO F/U WITH PT AFTER TEAM CONFRENCE MEETING.
[2020-07-02 15:12] VITALS: BP 147/64
--- NOTE | 2020-07-02 17:49 | NUR ---
A&OX 4, PWD. LUNGS CLEAR, ON 4L PER NC. HEART TONES REGULAR. +BS X 4 QUADS. PEDAL PULSES PRESENT 3+ WITH 2+ PITTING EDEMA IN LOWER LEGS AND FEET NOTED. HAS MANY KELOID SCAR'S ON BODY AND GROWTHS AROUND NECK AND EARS NOTED. ON 1999 FLUID RESTRICTION FOR 24 HOURS. PT HAS TAKEN 1350 FLUIDS INTACT THIS SHIFT. SALINE LOCK RIGHT FA INTACT AND PATENT. C/O KNEE AND BACK PAIN'S. TRAMADOL 100MG, GABAPENTIN AND LIDOCAINE PATCH ALL ADMINISTERED TO PATIENT AND SHE STILL C/O PAIN 06/15 BUT HAS BEEN TALKING ON CELL PHONE EVERY TIME THIS NURSE ENTERS THE ROOM. PT SHOWERED AND DRESSED SELF TODAY AND WALKED IN LITTLEJOHN WITH 02 ON. TOLERATED WITH FREQ. STOPS AND SOB WITH EXERTION NOTED. SAT UP IN CHAIR IN ROOM FOR SEVERAL HOURS TODAY THEN BACK TO BED FOR DINNER. PT DROPPED HER BLOOD SUGAR AROUND 1600 TO 44. SNACK PEANUT BUTTER AND CRACKERS AND APPLE JUICE GIVEN. CALL LIGHT WITHIN REACH. WILL CONTINUE TO MONITOR.
[2020-07-02 19:00] VITALS: BP 127/67
--- NOTE | 2020-07-02 21:00 | NUR ---
SITTING UP IN BARIATRIC BED PLAYING A COMPUTER GAME. STATES BACK PAIN AT A "9". GAVE TYLENOL. TOO SOON FOR ULTRAM. HAS BIPAP ON. CALL LIGHT WITHIN REACH. SNACK PROVIDED. BLOOD GLUCOSE 89. REFUSED LANTUS.
--- NOTE | 2020-07-03 04:55 | NUR ---
RESTED ON/OFF. VOLTAREN CREAM PLACE ON KNEES PER REQUEST. UP TO THE BEDSIDE COMMODE TO VOID. WORE BIPAP. HOURLY ROUNDING IN PROGRESS.
[2020-07-03 07:30] VITALS: BP 114/81
--- NOTE | 2020-07-03 14:45 | NUR ---
TEAM CONFRENCE MEETING HELD TODAY. CM AND PHYSICIAN INFORMED PT OF THE MEETING AND PLAN TO RE-TEAM AND HAVE THE PT REMAIN ON THE UNIT AND CONTINUE THERAPIES FOR ANOTHER WEEK AND PLAN FOR D/C AFTER TEAM NEXT WEEK. PT IN AGREEMENT WITH THE PLAN. PT PROGRESSING TOWARDS GOALS, BUT BARRIERS ARE ENDURANCE, FETIGUE, AND ACTIVITY TOLERANCE AND BALANCE. CM WILL REMAIN AVAILABLE TO ASSIST AND FOLLOW NEEDED.
--- NOTE | 2020-07-03 18:03 | NUR ---
ASSESSMENT COMPLETED DOCUMENTED THIS MORNING. PATIENT UP AND PARTICIPATING VERY WELL WITH THERAPY. STATED "THAT REALLY WORKED ME HARD TODAY, IT'S GOOD FOR ME BUT I REALLY HURT." TRAMADOL 100MG PO GIVEN AT 1220, ICE PACK APPLIED TO RIGHT KNEE. RELIEF STATED. PATIENT IS VERY MOBILE AND ONLY REQUIRES SBA.
[2020-07-03 19:00] VITALS: BP 124/74
[2020-07-04 05:25] LABS: MCH 25.5 pg (26.0-34.0); MCHC 31.3 g/dL (28.0-37.0); MCV 81.6 fL (80.0-100.0); MPV 7.8 fl. (7.2-11.1); RBC 3.92 mil/uL (4.20-5.00); RDW-CV 20.9 % (10.5-14.5); WBC 9.3 thou/uL (4.0-11.0)
[2020-07-04 05:50] LABS: CALCIUM 8.6 mg/dL (8.5-10.1); CREATININE 1.9 mg/dL (0.6-1.3); MAGNESIUM 2.5 mg/dL (1.8-2.4); POTASSIUM 3.6 mmol/L (3.5-5.1)
--- NOTE | 2020-07-04 06:58 | NUR ---
ASSUMED PT CARE AT 1930. ASSESSMENT COMPLETED CHARTED. ABLE TO MAKE NEEDS KNOWN. UP WITH SBA TO BSC. SLEPT WITH BIPAP MOST OF THE NIGHT. RESTING SITTING UP IN BED AT THIS TIME. WILL CONTINUE TO MONITOR.
[2020-07-04 08:49] VITALS: BP 110/56
--- NOTE | 2020-07-04 18:58 | NUR ---
ASSESSMENT COMPLETED DOCUMENTED THIS MORNING. PATIENT CONTINUES TO PROGRESS, AND IMPROVE GREATLY WITH HER ENDURANCE. HAS BEEN CONT OF B&B, ASKING FOR USE OF BSC FOR HER TOILETING NEEDS. TRAMADOL 100MG PO GIVEN AT 1800 FOR C/O KNEE PAIN.
[2020-07-04 21:00] VITALS: BP 149/80
--- NOTE | 2020-07-04 21:00 | NUR ---
RESTING QUIETLY IN BED AND PLAYING A COMPUTER GAME AND TALKING ON THE PHONE. CALL LIGHT WITHIN REACH. SNACK PROVIDED.
--- NOTE | 2020-07-05 05:02 | NUR ---
RESTED QUIETLY. UP DURING THE NIGHT TO THE BEDSIDE COMMODE WITH SET UP AND STANDBY ASSIST. HOURLY ROUNDING IN PROGRESS.
[2020-07-05 07:42] LABS: ALBUMIN 2.9 g/dL (3.4-5.0); CALCIUM 8.2 mg/dL (8.5-10.1); CREATININE 1.9 mg/dL (0.6-1.3); PHOSPHORUS* 4.2 mg/dL (2.5-4.9); POTASSIUM 3.4 mmol/L (3.5-5.1)
[2020-07-05 07:45] VITALS: BP 124/71
--- NOTE | 2020-07-05 13:11 | EKG ---
[place] [address] ELECTROCARDIOGRAM REPORT Name: YOUNG JACOBSEN Room: [address] ADM IN M.R.#: [id number] Admission: 06/28/20 Attend Phys: Andrew Cortés MD Discharge: Date of : 70 Date of Service: 07/05/20 1107 Report #: [id number] THIS REPORT FOR: //name// [facility] Test Date: 2020-07-05 Test Time: 11:07:37 Pat Name: YOUNG JACOBSEN Department: Room: [address] Gender: F Straw Hat Presser: : 1970 Requested By: Andrew Cortés Order Number: [id number] Reading MD: Eagle Hill Measurements Intervals [place] Rate: 68 P: 35 AR: 207 QRS: 21 QRSD: 113 T: 56 QT: 398 QTc: 424 Interpretive Statements Sinus rhythm Borderline prolonged AR interval Borderline intraventricular conduction delay Low voltage, precordial leads Baseline wander in lead(s) I,II,aVR,V2,V4,V5,V6 Compared to ECG 06/23/2020 19:36:51 Low QRS voltage now present Electronically Signed On 07-05-2020 13:11:39 CDT by Eagle Hill [email or web address] <ELECTRONICALLY SIGNED> By: Eagle Hill MD, [facility] 07/05/20 1311 110 Eagle Hill MD, [facility] /EPI
--- NOTE | 2020-07-05 16:40 | NUR ---
ALERT AND ORIENTED X4. UP WITH STAND BY ASSIST TO BEDSIDE COMMODE. USING PO MEDICATION TO HELP WITH PAIN. PAIN PATCH USED ON RIGHT KNEE TO HELP WITH PAIN. CONTINENT OF BOWEL AND BLADDER. C/O DIZZINESS THIS AM. O2 WAS ON AT 8L/NC. PUT BACK ON 4L/NC. CHECKED WITH PATIENT THIS AFTERNOON AND SHE SAID SHE WAS FEELING BETTER. NOTIFIED OF DIZZINESS. EKG ORDERED. HIMS DR NOTIFIED OF DIZZINESS AND RESULTS OF EKG. REMAINS ON 1500ML FLUID RESTRICTION. USES CALL LIGHT WHEN NEEDING ASSIST.
[2020-07-05 19:30] VITALS: BP 130/75
[2020-07-06 08:03] VITALS: BP 148/97
--- NOTE | 2020-07-06 18:12 | NUR ---
ASSESSMENT COMPLETED DOCUMENTED THIS MORNING. HAS BEEN UP IN RECLINER AT THE BEDSIDE ALL DAY AND TOLERATED VERY WELL. 02 CONT. AT 4LPM/NC WITH NO RESP DISTRESS NOTED. TRAMADOL 100 MG PO GIVEN X1 TODAY FOR PAIN CONTROL WITH RELIEF STATED.
[2020-07-07 07:49] VITALS: BP 156/82
--- NOTE | 2020-07-07 18:09 | NUR ---
ASSESSMENT COMPLETED DOCUMENTED THIS MORNING. PATIENT UP IN RECLINER FOR THE MAJORITY OF THE DAY...WHEN SHE WAS ASSISTED BACK TO HER BED IT WAS NOTED THAT SHE WAS A BIT MORE SOA. ONCE SHE GOT SETTLED IN BED, DYSPNEA CEASED, LATER IN THE AFTERNOON PATIENT ASKED TO WEAR HER BIPAP AND WAS MORE COMFORTABLE.
[2020-07-07 19:23] VITALS: BP 143/87
[2020-07-08 07:45] VITALS: BP 140/73
--- NOTE | 2020-07-08 16:14 | NUR ---
ALERT AND ORIENTED X4. UP WITH STAND BY ASSIST TO BEDSIDE COMMODE. USING PO PAIN MEDICATION AND PAIN PATCH TO HELP WITH LEGS AND BACK PAIN. PATIENT STATED STILL SPOTTING VAGINALLY SINCE HAVING BRENNAN CATHETER PLACED EVEN THOUGH HAS BEEN REMOVED. HAS VAGINAL CONTROL. MEDICAL DR NOTIFIED. PATIENT C/O FEELING DIZZY THIS AFTERNOON WITH THERAPY. BLOOD SUGAR CHECKED AND WAS 45. JUICE AND FOOD GIVEN. BLOOD SUGAR AT THIS TIME 98. WILL CONTINUE TO MONITOR. REMAINS ON FLUID RESTRICTIONS OF 2000ML/24 HOURS. REMAINS ON O2 AT 4L/NC TO KEEP O2 SATS IN 90'S. USES CALL LIGHT WHEN NEEDING ASSIST. FALL PRECAUTIONS IN PLACE. BED ALARM AND CHAIR ALARM USD.
[2020-07-08 19:00] VITALS: BP 141/76
--- NOTE | 2020-07-09 06:46 | NUR ---
ASSUMED CARES AT 1920. ALERT AND ORIENTED. PLEASANT. O2 4L NC. BIPAP AT NIGHT. SBA WITH GAIT BELT. UP TO BSC. PAIN MEDS GIVEN NEEDED FOR RIGHT KNEE. PT REQUESTED SNACKS THROUGHOUT EVENING. REFUSED INSULIN AT HS. FEARED THAT BLOOD SUGARS WOULD DROP DURING THE DAY AGAIN. PT C/O DRY MOUTH. COMPLAINED ABOUT NOT HAVING ANYTHING TO DRINK PT HAS MAXED OUT FLUID RESTRICTION FOR THE NIGHT. ICE CHIPS GIVEN. SLEPT SOME. CALL LIGHT IN REACH AND BED ALARM ON.
[2020-07-09 09:15] VITALS: BP 150/85
--- NOTE | 2020-07-09 15:27 | NUR ---
UP WITH STAND BY ASSIST TO BEDSIDE COMMODE. USING PO PAIN MEDICATION AND PAIN PATCH TO HELP WITH RIGHT KNEE AND BACK PAIN. REMAINS ON O2 AT 4L/NC TO KEEP O2 SAT IN 90'S. DR NOTIFIED OF LOW BLOOD SUGAR YESTERDAY AND THAT PATIENT HAD BEEN REFUSING LANTUS AT NIGHT. BLOOD SUGAR LOW AGAIN TODAY AND JUICE GIVEN. NEW ORDERS NOTED. DR ALSO NOTIFIED OF PATIENT'S BILATERAL HANDS PEELING. PATIENT REMAINS ON 2000ML FLUID RESTRICTION. USES CALL LIGHT FOR ASSIST. FALL PRECAUTIONS IN PLACE.
--- NOTE | 2020-07-09 17:30 | NUR ---
CM SPOKE TO THE PT TO DISCUSS ANY QUESTIONS OR CONCERNS THAT SHE MAY HAVE FOR TOMORROWS TEAM CONFRENCE MEETING. PT REQUEST INFO FOR CONSUMER DIRECTED SERVICES SO THAT HER FAMILY MEMBER CAN BE PAID TO HELP CARE FOR HER AT HOME. CM AND PHYSICIAN TO F/U WITH PT AFTER THE MEETING TOMORROW.
[2020-07-09 19:00] VITALS: BP 178/98
--- NOTE | 2020-07-10 05:14 | NUR ---
ASSUMED CARES AT 1920. ALERT AND ORIENTED. C/O "ALL OVER PAIN" EARLY IN NIGHT. PAIN MED GIVEN. O2 4L NC. BIPAP OVERNIGHT. [employer]RIM[employer] TO HANDS AND LEFT LEG. SBA UP TO BSC. PT AGREABLE TO TAKING INSULIN. HS SNACKS GIVEN. SLEPT MOST OF THE NIGHT. CALL LIGHT IN REACH AND BED ALARM ON.
[2020-07-10 08:00] VITALS: BP 158/93
--- NOTE | 2020-07-10 15:43 | NUR ---
ALERT AND ORIENTED X4. UP WITH STAND BY ASSIST TO BED SIDE COMMODE. USES PO PAIN MEDICATION, GEL AND PAIN PATCH TO HELP WITH BACK AND KNEE PAIN. CREAM APPLIED TO BILATERAL HANDS THAT ARE PEELING. REMAINS ON O2 AT 4L/NC TO KEEP O2 SATS GREATER THAN 90%. NOTIFIED OF ULTRASOUND REPORT. REMAINS ON 2000ML FLUID RESTRICTION. USES CALL LIGHT WHEN NEEDING ASSIST.
[2020-07-10 23:28] VITALS: BP 126/54
[2020-07-11 08:00] VITALS: BP 162/93
[2020-07-11] MEDS ORDERED: VOLTAREN GEL 1100 G1 TOP (12:44)
[2020-07-11] MEDS ORDERED: LANTUS SUBQ (12:44)
[2020-07-11] MEDS ORDERED: CLOTRIMAZOLE 1%15 G1 TOP (12:44)
[2020-07-11] MEDS ORDERED: HUMALOG100 UNIT/1 SUBQ (12:44)
--- NOTE | 2020-07-11 15:04 | NUR ---
EKG DONE. PT DENIES CHEST PAIN. RESULTS OF EKG AND TROPONIN DISCUSSED WITH DR SHIPMAN.
--- NOTE | 2020-07-11 15:25 | NUR ---
TEAM CONFRENCE MEETING HELD YESTERDAY. CM AND PHYSICIAN SPOKE TO PT TO DISCUSS MEETING AND PLAN FOR PT TO D/C HOME TODAY. PT IN AGREEMENT WITH THE PLAN. PT WILL D/C TODAY WITH NO NEEDS. PT IS UNABLE TO HAVE HH AT D/C THE PT IS MEDICAID ONLY INSURANCE AND PREFERS TO KEEP HER PAID CAREGIVER SERVICES. CM TO PROVIDE PT WITH INFO ON HOW TO ARRANGE FOR HER FAMILY MEMBER TO BE PAID HER CAREGIVER THROUGH THE WHOLE PERSON. PT PROGRESSING TOWARDS GOALS. HOWEVER BARRIERS ARE PAIN, AND ACTIVITY TOLERANCE. CM WILL REMAIN AVAILABLE TO ASSIST AND FOLLOW NEEDED.
[2020-07-11 16:37] VITALS: BP 162/93
--- NOTE | 2020-07-11 16:51 | NUR ---
PT PARTICIPATED IN ALL THERAPIES. DENIES PAIN. O2@3L WHICH IS HOME USE. PLAN TO DC THIS EVENING
[2020-07-11 18:05] LABS: URINE BILIRUBIN NEGATIVE (Negative); URINE BLOOD 3+ (Negative); URINE CLARITY SL CLOUDY; URINE COLOR YELLOW; URINE GLUCOSE-RANDOM NEGATIVE (Negative); URINE KETONES NEGATIVE (Negative); URINE LEUKOCYTES-REFLEX TRACE (Negative); URINE NITRITE-REFLEX NEGATIVE (Negative); URINE PROTEIN 3+ (Negative); URINE UROBILINOGEN 0.2 E.U./dl (0.2-1.0)
[2020-07-11 18:34] LABS: CRYSTALS None Seen /LPF (None Seen); SQUAMOUS >10 Many /LPF (0-3); URINE RBC >20 Many /HPF (0-2); URINE WBC-REFLEX >25 Many /HPF (0-5)
[2020-07-11 18:35] LABS: HYALINE CASTS 0-3 Few /LPF (None Seen)
--- NOTE | 2020-07-11 20:30 | NUR ---
PT DISCHARGED WITH GRANDDAUGHTER TO HER CAR AT AROUND 2014. ALL BELONGINGS TAKEN WITH PT AND PUT IN CAR. C/O BACK PAIN YET GOT PAIN MEDICATION. NOTIFIED DR OF UA RESULTS WITH NO ORDERS GIVEN. DISCHARGE WENT OVER WITH PT DURING DAY SHIFT. NO COMMENTS, QUESTIONS, OR CONCERNS NOTED.
--- NOTE | 2020-07-12 10:59 | EKG ---
[place] [address] ELECTROCARDIOGRAM REPORT Name: YOUNG JACOBSEN Room: [address] DIS IN M.R.#: [id number] Admission: 06/28/20 Attend Phys: Andrew Cortés MD Discharge: 07/11/20 Date of : 70 Date of Service: 07/11/20 1500 Report #: [id number] THIS REPORT FOR: //name// [facility] Test Date: 2020-07-11 Test Time: 15:00:41 Pat Name: YOUNG JACOBSEN Department: Room: [address] Gender: F Associate Professor Of Theology: HAMIDA : 1970 Requested By: Arnoldo Alarcon Order Number: [id number] Gaurav MD: Dejan Burdick Measurements Intervals [place] Rate: 67 P: 42 MO: 195 QRS: 37 QRSD: 115 T: 26 QT: 412 QTc: 435 Interpretive Statements Sinus rhythm Nonspecific intraventricular conduction delay Compared to ECG 07/05/2020 11:07:37 No significant changes Electronically Signed On 07-12-2020 10:59:15 VICE PRESIDENT [employer]STATIST[employer] by Dejan Burdick [email or web address] <ELECTRONICALLY SIGNED> By: Dejan Burdick MD, FACC 07/12/20 1059 1500 1500 Dejan Burdcik MD, [facility] /EPI
== END 2020-07-11 20:30 | disposition home health service (06) | DRG 947 ==
LOC: M.REH 16:25
PROVIDERS: Family Medicine; Internal Medicine; ADMIT Physical Medicine & Rehabilitation; ATTEND Physical Medicine & Rehabilitation
PROC: 5A09357 Assistance with Respiratory Ventilation, Less than 24 Consecutive Hours, Continuous Positive Airway Pressure (ICD-10-PCS; principal; 2020-06-28)
PROC: 5A09357 Assistance with Respiratory Ventilation, Less than 24 Consecutive Hours, Continuous Positive Airway Pressure (ICD-10-PCS; 2020-06-29)
PROC: 5A09357 Assistance with Respiratory Ventilation, Less than 24 Consecutive Hours, Continuous Positive Airway Pressure (ICD-10-PCS; 2020-06-30)
PROC: 5A09357 Assistance with Respiratory Ventilation, Less than 24 Consecutive Hours, Continuous Positive Airway Pressure (ICD-10-PCS; 2020-07-01)
PROC: 5A09357 Assistance with Respiratory Ventilation, Less than 24 Consecutive Hours, Continuous Positive Airway Pressure (ICD-10-PCS; 2020-07-02)
PROC: 5A09357 Assistance with Respiratory Ventilation, Less than 24 Consecutive Hours, Continuous Positive Airway Pressure (ICD-10-PCS; 2020-07-03)
PROC: 5A09357 Assistance with Respiratory Ventilation, Less than 24 Consecutive Hours, Continuous Positive Airway Pressure (ICD-10-PCS; 2020-07-04)
PROC: 5A09357 Assistance with Respiratory Ventilation, Less than 24 Consecutive Hours, Continuous Positive Airway Pressure (ICD-10-PCS; 2020-07-06)
PROC: 5A09357 Assistance with Respiratory Ventilation, Less than 24 Consecutive Hours, Continuous Positive Airway Pressure (ICD-10-PCS; 2020-07-07)
PROC: 5A09357 Assistance with Respiratory Ventilation, Less than 24 Consecutive Hours, Continuous Positive Airway Pressure (ICD-10-PCS; 2020-07-08)
PROC: 5A09357 Assistance with Respiratory Ventilation, Less than 24 Consecutive Hours, Continuous Positive Airway Pressure (ICD-10-PCS; 2020-07-11)
DX: R53.81 Other malaise (principal); J44.1 Chronic obstructive pulmonary disease with (acute) exacerbation; J96.22 Acute and chronic respiratory failure with hypercapnia; J96.21 Acute and chronic respiratory failure with hypoxia; E66.2 Morbid (severe) obesity with alveolar hypoventilation; I13.0 Hypertensive heart and chronic kidney disease with heart failure and stage 1 through stage 4 chronic kidney disease, or unspecified chronic kidney disease; I50.32 Chronic diastolic (congestive) heart failure; E44.0 Moderate protein-calorie malnutrition; Z68.45 Body mass index [BMI] 70 or greater, adult; N18.30 Chronic kidney disease, stage 3 unspecified; G89.29 Other chronic pain; K58.9 Irritable bowel syndrome, unspecified; F41.9 Anxiety disorder, unspecified; F32.9 Major depressive disorder, single episode, unspecified; I25.10 Atherosclerotic heart disease of native coronary artery without angina pectoris; M17.0 Bilateral primary osteoarthritis of knee; D50.9 Iron deficiency anemia, unspecified; E11.22 Type 2 diabetes mellitus with diabetic chronic kidney disease; I87.8 Other specified disorders of veins; Z82.49 Family history of ischemic heart disease and other diseases of the circulatory system; Z82.5 Family history of asthma and other chronic lower respiratory diseases; Z88.8 Allergy status to other drugs, medicaments and biological substances; Z91.048 Other nonmedicinal substance allergy status; Z88.2 Allergy status to sulfonamides; Z91.040 Latex allergy status; Z88.6 Allergy status to analgesic agent; Z88.7 Allergy status to serum and vaccine

== ENCOUNTER 2020-10-02 17:11 | Inpatient (IN) | payer MEDICAID ==
[~2020-10-02] VITALS: Ht 180.3 cm; Wt 250.4 kg
--- NOTE | ~2020-10-02 | CON ---
[address] [address] CONSULTATION Name: YOUNG JACOBSEN Room: [address] IN M.R.#: [id number] Admission: 10/02/20 Attend Phys: Diamond Powell MD Discharge: Date of : 70 Report #: [id number] THIS REPORT FOR: cc: BECCA - No family physician/PCP FAM - No family physician/PCP ~ Bobo Metz MD DATE OF SERVICE: 10/04/2020 REQUESTING PHYSICIAN: Dr. Powell. REASON FOR CONSULTATION: Acute on chronic kidney disease. HISTORY OF PRESENT ILLNESS: The patient is a 50-year-old female who has chronic kidney disease stage 3. She follows with me in the office for that. Her baseline creatinine is around 0 and 1.5. She presents with complaints of shortness of breath. She was actually in acute respiratory failure. She is on CPAP at home. She has a PEG placed on the BiPAP. Her chest x-ray revealed significant changes in pneumonia, especially on the right lower and mid area. Chest x-ray looks suspicion for COVID; however, COVID exam was negative. PAST MEDICAL HISTORY: 1. Morbid obesity. 2. Diabetes mellitus type 2. 3. Hypertension. 4. Chronic obstructive pulmonary disease. 5. Chronic kidney disease stage 3. FAMILY HISTORY: Noncontributory. SOCIAL HISTORY: No current tobacco or alcohol abuse. MEDICATIONS: Reviewed. She was on Lasix at home. REVIEW OF SYSTEMS: Unobtainable. PHYSICAL EXAMINATION: GENERAL: She is on BiPAP in acute distress. VITAL SIGNS: Blood pressure 153/72, heart rate 84, afebrile. HEENT: Pupils are round. NECK: Fatty. LUNGS: Coarse breath sounds bilaterally. ABDOMEN: Obese, soft. EXTREMITIES: Lower [place] [address] CONSULTATION Name: YOUNG JACOBSEN Room: [address]#: [id number] Admission: 10/02/20 Attend Phys: Diamond Powell MD Discharge: Date of : 70 Report #: [id number] LABORATORY REPORT: White count 12.5 thousand from 9.7 on admission, hemoglobin 9.3. COVID negative. Her serum sodium 140, potassium, chloride 104, carbon dioxide 30, BUN 38, creatinine 2.5, again 1.5 at baseline. ASSESSMENT: 1. Acute kidney injury, probably related to her infection. 2. Respiratory failure and COVID was negative, diagnosis of pneumonia. 3. Chronic obstructive pulmonary disease. 4. Morbid obesity. 5. Diabetes mellitus type 2. 6. Hypertension. PLAN: 1. Continue his antibiotics. 2. Continue with insulin and steroids. 3. I would probably repeat her COVID test, but defer to primary team. 4. Follow labs. 5. Hold diuretics. 6. Obtain renal ultrasound. 7. Follow I's and O's and labs. By: 1515 0125Aasia Metz, /irene
[~2020-10-02 17:11] MED LIST changes: +CLOTRIMAZOLE 1%15 G1 TOP; +VOLTAREN GEL 1100 G1 TOP
[2020-10-02 17:21] VITALS: BP 183/98
[2020-10-02 17:41] LABS: ABSOLUTE BASOPHILS 0.1 thou/uL (0.0-0.2); ABSOLUTE EOSINOPHILS 0.2 thou/uL (0.0-0.7); ABSOLUTE LYMPHOCYTES 0.8 thou/uL (0.8-5.3); ABSOLUTE MONOCYTES 0.6 thou/uL (0.0-1.2); BASOPHILS 0.9 %; EOSINOPHILS 2.2 %; HEMATOCRIT 34.1 % (37.0-47.0); HEMOGLOBIN 10.7 gm/dL (12.0-15.0); LYMPHOCYTES 8.5 %; MCHC 31.4 g/dL (28.0-37.0); MCV 82.9 fL (80.0-100.0); MONOCYTES 6.1 %; MPV 7.9 fl. (7.2-11.1); NUCLEATED RBCS 0 /100WBC; PLATELET COUNT* 364 thou/uL (150-400); POLYS 82.3 %; RBC 4.11 mil/uL (4.20-5.00); RDW-CV 19.2 % (10.5-14.5); WBC 9.7 thou/uL (4.0-11.0)
[2020-10-02 17:51] LABS: CALCIUM 8.9 mg/dL (8.5-10.1); CREATININE 2.3 mg/dL (0.6-1.3); POTASSIUM 3.4 mmol/L (3.5-5.1)
[2020-10-02 17:53] LABS: APTT 22.8 Seconds (25.0-31.3); PROTIME 11.1 Seconds (9.20-11.50)
[2020-10-02 18:01] LABS: ALBUMIN 3.5 g/dL (3.4-5.0); MAGNESIUM 1.9 mg/dL (1.8-2.4); TOTAL BILIRUBIN 0.5 mg/dL (<0.1-1.0); TOTAL PROTEIN 7.4 g/dL (6.4-8.2)
[2020-10-02 23:30] VITALS: BP 148/75
[2020-10-03 00:15] VITALS: BP 151/88
[2020-10-03 04:00] VITALS: BP 129/70
[2020-10-03 05:41] LABS: HEMATOCRIT 31.8 % (37.0-47.0); HEMOGLOBIN 10.1 gm/dL (12.0-15.0); MCH 26.2 pg (26.0-34.0); MCHC 31.7 g/dL (28.0-37.0); MCV 82.7 fL (80.0-100.0); MPV 8.5 fl. (7.2-11.1); RBC 3.84 mil/uL (4.20-5.00)
[2020-10-03 05:58] LABS: ALBUMIN 3.2 g/dL (3.4-5.0); MAGNESIUM 1.9 mg/dL (1.8-2.4); POTASSIUM 3.8 mmol/L (3.5-5.1); TOTAL BILIRUBIN 0.3 mg/dL (<0.1-1.0)
[2020-10-03 09:00] VITALS: BP 160/87
[2020-10-03 14:45] VITALS: BP 149/94
--- NOTE | 2020-10-03 15:57 | EKG ---
[place] [address] ELECTROCARDIOGRAM REPORT Name: YOUNG JACOBSEN Room: [address] ADM IN .R.#: [id number] Admission: 10/02/20 Attend Phys: Diamond Powell, Discharge: Date of : 70 Date of Service: 10/02/20 1718 Report #: [id number] THIS REPORT FOR: //name// [facility] ED Test Date: 2020-10-02 Test Time: 17:18:45 Pat Name: YOUNG JACOBSEN Department: Room: [facility] Gender: F Manager Editorial: REBECCA : 1970 Requested By: Kings Hudson Order Number: [id number] MD: Aurelio Ifnante Measurements Intervals [place] Rate: 73 P: 24 PA: 204 QRS: 23 QRSD: 116 T: 64 QT: 393 QTc: 433 Interpretive Statements Sinus rhythm Borderline prolonged PA interval Nonspecific intraventricular conduction delay Compared to ECG 07/11/2020 15:00:41 No significant changes Electronically Signed On 10-03-2020 15:57:51 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
[2020-10-03 17:25] VITALS: BP 168/97
[2020-10-03 19:30] VITALS: BP 194/103
[2020-10-04] VITALS (7 sets, daily range): BP systolic 135–189; BP diastolic 72–94
[2020-10-04 05:24] LABS: HEMATOCRIT 29.4 % (37.0-47.0); HEMOGLOBIN 9.3 gm/dL (12.0-15.0); MCH 25.9 pg (26.0-34.0); MCHC 31.5 g/dL (28.0-37.0); MCV 82.2 fL (80.0-100.0); RBC 3.58 mil/uL (4.20-5.00); RDW-CV 18.9 % (10.5-14.5); WBC 12.5 thou/uL (4.0-11.0)
[2020-10-04 05:47] LABS: ALBUMIN 3.1 g/dL (3.4-5.0); CALCIUM 9.3 mg/dL (8.5-10.1); CREATININE 2.5 mg/dL (0.6-1.3); MAGNESIUM 2.2 mg/dL (1.8-2.4); POTASSIUM 4.3 mmol/L (3.5-5.1); TOTAL BILIRUBIN 0.3 mg/dL (<0.1-1.0); TOTAL PROTEIN 6.6 g/dL (6.4-8.2); TROPONIN-I LEVEL 0.12 ng/mL (<0.06)
[2020-10-04 22:27] LABS: URINE BILIRUBIN NEGATIVE (Negative); URINE BLOOD NEGATIVE (Negative); URINE CLARITY CLEAR; URINE COLOR YELLOW; URINE GLUCOSE-RANDOM TRACE (Negative); URINE KETONES NEGATIVE (Negative); URINE LEUKOCYTES NEGATIVE (Negative); URINE NITRITE NEGATIVE (Negative); URINE PROTEIN 3+ (Negative); URINE SPECIFIC GRAVITY 1.025 (1.005-1.030); URINE UROBILINOGEN 0.2 E.U./dl (0.2-1.0)
[2020-10-05 00:40] LABS: CASTS None Seen /LPF (None Seen); SQUAMOUS >10 Many /LPF (0-3); URINE RBC None Seen /HPF (0-2); URINE WBC 0-5 Rare /HPF (0-5)
[2020-10-05 00:41] LABS: CRYSTALS None Seen /LPF (None Seen)
[2020-10-05 04:04] VITALS: BP 169/87
[2020-10-05 06:29] LABS: HEMATOCRIT 30.5 % (37.0-47.0); HEMOGLOBIN 9.5 gm/dL (12.0-15.0); MCH 25.6 pg (26.0-34.0); MCV 82.6 fL (80.0-100.0); MPV 8.5 fl. (7.2-11.1); RBC 3.69 mil/uL (4.20-5.00); RDW-CV 18.9 % (10.5-14.5); WBC 12.6 thou/uL (4.0-11.0)
[2020-10-05 06:36] LABS: ALBUMIN 3.2 g/dL (3.4-5.0); CALCIUM 9.3 mg/dL (8.5-10.1); CREATININE 2.4 mg/dL (0.6-1.3); MAGNESIUM 2.4 mg/dL (1.8-2.4); TOTAL BILIRUBIN 0.2 mg/dL (<0.1-1.0); TOTAL PROTEIN 6.7 g/dL (6.4-8.2)
[2020-10-05 08:00] VITALS: BP 170/82
[2020-10-05 11:45] VITALS: BP 153/69
[2020-10-05 15:56] VITALS: BP 172/81
[2020-10-05 19:30] VITALS: BP 130/94
[2020-10-05 20:15] VITALS: BP 168/91
[2020-10-06 01:13] VITALS: BP 149/82
[2020-10-06 04:32] VITALS: BP 137/74
[2020-10-06 04:46] LABS: HEMATOCRIT 29.6 % (37.0-47.0); HEMOGLOBIN 9.3 gm/dL (12.0-15.0); MCH 25.8 pg (26.0-34.0); MCHC 31.4 g/dL (28.0-37.0); MCV 82.1 fL (80.0-100.0); MPV 8.1 fl. (7.2-11.1); RBC 3.6 mil/uL (4.20-5.00); WBC 11.7 thou/uL (4.0-11.0)
[2020-10-06 04:59] LABS: CALCIUM 8.6 mg/dL (8.5-10.1); CREATININE 2.3 mg/dL (0.6-1.3); MAGNESIUM 2.5 mg/dL (1.8-2.4)
[2020-10-06 08:00] VITALS: BP 137/76
[2020-10-06 12:00] VITALS: BP 146/70
[2020-10-06 17:48] VITALS: BP 156/83
[2020-10-06 21:00] VITALS: BP 156/87
[2020-10-07] VITALS: BP 127/67
[2020-10-07 04:00] VITALS: BP 131/68
[2020-10-07 06:07] LABS: ALBUMIN 2.8 g/dL (3.4-5.0); CALCIUM 8.6 mg/dL (8.5-10.1); CREATININE 2.2 mg/dL (0.6-1.3); PHOSPHORUS* 4.2 mg/dL (2.5-4.9); POTASSIUM 3.8 mmol/L (3.5-5.1)
[2020-10-07 08:00] VITALS: BP 141/81
[2020-10-07 12:00] VITALS: BP 147/87
[2020-10-07 16:14] VITALS: BP 110/83
[2020-10-07 21:24] VITALS: BP 159/82
[2020-10-08] VITALS: BP 141/74
[2020-10-08 04:00] VITALS: BP 111/56
[2020-10-08 05:18] LABS: CALCIUM 8.5 mg/dL (8.5-10.1); CREATININE 2.1 mg/dL (0.6-1.3); MAGNESIUM 2.5 mg/dL (1.8-2.4); POTASSIUM 3.8 mmol/L (3.5-5.1)
[2020-10-08 08:00] VITALS: BP 175/99
[2020-10-08] MEDS ORDERED: PREDNISONE 10 M10 MG PO (09:35)
[2020-10-08] MEDS ORDERED: CEFDINIR300 MG PO (09:35)
[2020-10-08 12:02] VITALS: BP 175/99
[2020-10-08 14:20] VITALS: BP 175/99
== END 2020-10-08 16:30 | disposition home health service (06) | DRG 177 ==
LOC: M.ERS 17:11 → M.TBA-ER 18:35 → M.ORTHSURG 23:47 → M.2W 10-04 19:53
PROVIDERS: Emergency Medicine Emergency Medical Services; Internal Medicine; Internal Medicine Nephrology; ADMIT Internal Medicine; ATTEND Internal Medicine
DX: J15.6 Pneumonia due to other Gram-negative bacteria (principal); J96.21 Acute and chronic respiratory failure with hypoxia; N17.0 Acute kidney failure with tubular necrosis; J96.22 Acute and chronic respiratory failure with hypercapnia; Z68.45 Body mass index [BMI] 70 or greater, adult; I13.0 Hypertensive heart and chronic kidney disease with heart failure and stage 1 through stage 4 chronic kidney disease, or unspecified chronic kidney disease; I50.32 Chronic diastolic (congestive) heart failure; E66.2 Morbid (severe) obesity with alveolar hypoventilation; E11.65 Type 2 diabetes mellitus with hyperglycemia; E11.22 Type 2 diabetes mellitus with diabetic chronic kidney disease; I87.8 Other specified disorders of veins; K58.9 Irritable bowel syndrome, unspecified; F41.9 Anxiety disorder, unspecified; F32.9 Major depressive disorder, single episode, unspecified; N18.30 Chronic kidney disease, stage 3 unspecified; I25.10 Atherosclerotic heart disease of native coronary artery without angina pectoris; M62.838 Other muscle spasm; E78.5 Hyperlipidemia, unspecified; G89.29 Other chronic pain; J44.9 Chronic obstructive pulmonary disease, unspecified; Z20.822 Contact with and (suspected) exposure to COVID-19; Z79.4 Long term (current) use of insulin; Z79.899 Other long term (current) drug therapy; Z79.82 Long term (current) use of aspirin; Z88.5 Allergy status to narcotic agent; Z88.2 Allergy status to sulfonamides; Z88.8 Allergy status to other drugs, medicaments and biological substances; Z91.040 Latex allergy status

== ENCOUNTER 2021-03-04 16:14 | Emergency (ER) | payer MEDICAID ==
[~2021-03-04] VITALS: Ht 180.3 cm; Wt 303.9 kg
[2021-03-04 17:21] LABS: HEMATOCRIT 32.2 % (37.0-47.0); HEMOGLOBIN 10.2 gm/dL (12.0-15.0); MCH 24.8 pg (26.0-34.0); MCHC 31.7 g/dL (28.0-37.0); MCV 78.1 fL (80.0-100.0); MPV 7.9 fl. (7.2-11.1); NUCLEATED RBCS 0 /100WBC; PLATELET COUNT* 341 thou/uL (150-400); RBC 4.13 mil/uL (4.20-5.00); WBC 9.9 thou/uL (4.0-11.0)
[2021-03-04 17:44] LABS: ABSOLUTE LYMPHOCYTES 0.3 thou/uL (0.8-5.3); ABSOLUTE MONOCYTES 0.9 thou/uL (0.0-1.2); ABSOLUTE NEUTROPHILS 8.7 thou/uL (1.6-8.1); PLATELET ESTIMATE ADEQUATE
[2021-03-04 19:10] VITALS: BP 154/89
== END 2021-03-04 19:13 | disposition home or self-care (01) ==
LOC: M.ERS 16:14
PROVIDERS: Family Medicine
DX: S80.02XA Contusion of left knee, initial encounter (principal); S80.01XA Contusion of right knee, initial encounter; J44.9 Chronic obstructive pulmonary disease, unspecified; G47.33 Obstructive sleep apnea (adult) (pediatric); I25.10 Atherosclerotic heart disease of native coronary artery without angina pectoris; E11.22 Type 2 diabetes mellitus with diabetic chronic kidney disease; I12.9 Hypertensive chronic kidney disease with stage 1 through stage 4 chronic kidney disease, or unspecified chronic kidney disease; N18.2 Chronic kidney disease, stage 2 (mild); Z79.4 Long term (current) use of insulin; Z88.5 Allergy status to narcotic agent; Z88.2 Allergy status to sulfonamides; Z88.1 Allergy status to other antibiotic agents; Z88.7 Allergy status to serum and vaccine; Z91.040 Latex allergy status; W01.0XXA Fall on same level from slipping, tripping and stumbling without subsequent striking against object, initial encounter; Y93.89 Activity, other specified; Y92.89 Other specified places as the place of occurrence of the external cause; Y99.8 Other external cause status

== ENCOUNTER 2021-03-04 20:33 | Inpatient (IN) | payer MEDICAID ==
[~2021-03-04] VITALS: Ht 170.2 cm; Wt 303.9 kg
[2021-03-04 20:37] VITALS: BP 150/65
[2021-03-04 21:17] LABS: BE -2.7 mmol/L (-2 to +3)
[2021-03-04 21:22] LABS: PCO2 62.9 mmHg (35.0-45.0); PO2 241.3 mmHg (75.0-100.0); pH 7.229 (7.340-7.450)
[2021-03-04 21:36] LABS: HEMATOCRIT 32.1 % (37.0-47.0); MCH 24.7 pg (26.0-34.0); MCHC 31.3 g/dL (28.0-37.0); MCV 78.8 fL (80.0-100.0); MPV 7.8 fl. (7.2-11.1); NUCLEATED RBCS 0 /100WBC; PLATELET COUNT* 340 thou/uL (150-400); RBC 4.07 mil/uL (4.20-5.00); RDW-CV 18.9 % (10.5-14.5); WBC 10.7 thou/uL (4.0-11.0)
[2021-03-04 21:48] LABS: CALCIUM 9.1 mg/dL (8.5-10.1); CREATININE 3.7 mg/dL (0.6-1.3); POTASSIUM 4.5 mmol/L (3.5-5.1)
[2021-03-04 21:58] LABS: ALBUMIN 3.3 g/dL (3.4-5.0); MAGNESIUM 2.1 mg/dL (1.8-2.4); TOTAL BILIRUBIN 0.4 mg/dL (<0.1-1.0); TOTAL PROTEIN 7.3 g/dL (6.4-8.2)
[2021-03-04 22:32] LABS: ABSOLUTE LYMPHOCYTES 0.7 thou/uL (0.8-5.3); ABSOLUTE MONOCYTES 0.6 thou/uL (0.0-1.2); ABSOLUTE NEUTROPHILS 9.3 thou/uL (1.6-8.1)
[2021-03-04 22:33] LABS: PLATELET ESTIMATE ADEQUATE
[2021-03-04 22:34] LABS: ANISOCYTOSIS 1+; HYPOCHROMASIA 1+
[2021-03-04 23:48] LABS: BE -2.6 mmol/L (-2 to +3); PO2 112.8 mmHg (75.0-100.0)
[2021-03-04 23:50] LABS: pH 7.262 (7.340-7.450)
[2021-03-04 23:51] LABS: PCO2 56.6 mmHg (35.0-45.0)
[2021-03-05] VITALS (7 sets, daily range): BP systolic 130–176; BP diastolic 66–98
[2021-03-06 02:26] VITALS: BP 142/82
[2021-03-06 04:17] LABS: HEMATOCRIT 27.3 % (37.0-47.0); HEMOGLOBIN 8.6 gm/dL (12.0-15.0); MCH 24.5 pg (26.0-34.0); MCHC 31.7 g/dL (28.0-37.0); MCV 77.4 fL (80.0-100.0); MPV 8.2 fl. (7.2-11.1); RBC 3.52 mil/uL (4.20-5.00); RDW-CV 19.2 % (10.5-14.5); WBC 8.5 thou/uL (4.0-11.0)
[2021-03-06 04:29] LABS: ALBUMIN 2.5 g/dL (3.4-5.0); CALCIUM 8.5 mg/dL (8.5-10.1); CREATININE 3.9 mg/dL (0.6-1.3); MAGNESIUM 2.1 mg/dL (1.8-2.4); POTASSIUM 4.1 mmol/L (3.5-5.1); TOTAL BILIRUBIN 0.2 mg/dL (<0.1-1.0)
[2021-03-06 05:29] VITALS: BP 172/82
[2021-03-06 08:00] VITALS: BP 147/83
[2021-03-06 12:00] VITALS: BP 135/64
[2021-03-06 13:29] LABS: URINE BILIRUBIN NEGATIVE (Negative); URINE BLOOD 2+ (Negative); URINE CLARITY CLEAR; URINE COLOR YELLOW; URINE GLUCOSE-RANDOM NEGATIVE (Negative); URINE KETONES NEGATIVE (Negative); URINE LEUKOCYTES-REFLEX NEGATIVE (Negative); URINE NITRITE-REFLEX NEGATIVE (Negative); URINE PROTEIN 3+ (Negative); URINE SPECIFIC GRAVITY >= 1.030 (1.005-1.030); URINE UROBILINOGEN 0.2 E.U./dl (0.2-1.0)
[2021-03-06 13:43] LABS: SQUAMOUS 0-3 Few /LPF (0-3); URINE RBC 0-2 Rare /HPF (0-2); URINE WBC-REFLEX 0-5 Rare /HPF (0-5)
[2021-03-06 13:44] LABS: CASTS None Seen /LPF (None Seen); CRYSTALS None Seen /LPF (None Seen)
[2021-03-06 16:00] VITALS: BP 146/79
[2021-03-06 19:30] VITALS: BP 152/88
[2021-03-07] VITALS: BP 154/80
[2021-03-07 04:00] VITALS: BP 137/71
[2021-03-07 04:19] LABS: ABSOLUTE BASOPHILS 0.1 thou/uL (0.0-0.2); ABSOLUTE EOSINOPHILS 0.3 thou/uL (0.0-0.7); ABSOLUTE LYMPHOCYTES 0.8 thou/uL (0.8-5.3); ABSOLUTE MONOCYTES 1.3 thou/uL (0.0-1.2); BASOPHILS 0.7 %; EOSINOPHILS 2.8 %; HEMATOCRIT 29.5 % (37.0-47.0); HEMOGLOBIN 9.4 gm/dL (12.0-15.0); LYMPHOCYTES 7.9 %; MCH 24.7 pg (26.0-34.0); MCHC 31.7 g/dL (28.0-37.0); MONOCYTES 12.4 %; MPV 7.8 fl. (7.2-11.1); NUCLEATED RBCS 0 /100WBC; PLATELET COUNT* 313 thou/uL (150-400); POLYS 76.2 %; RBC 3.78 mil/uL (4.20-5.00); RDW-CV 19.6 % (10.5-14.5); WBC 10.4 thou/uL (4.0-11.0)
[2021-03-07 05:00] LABS: ALBUMIN 2.5 g/dL (3.4-5.0); CALCIUM 8.7 mg/dL (8.5-10.1); CREATININE 3.9 mg/dL (0.6-1.3); MAGNESIUM 2.1 mg/dL (1.8-2.4); POTASSIUM 4.1 mmol/L (3.5-5.1); TOTAL BILIRUBIN 0.3 mg/dL (<0.1-1.0); TOTAL PROTEIN 6.2 g/dL (6.4-8.2)
[2021-03-07 05:10] LABS: % SATURATION 7 % (20-39); IRON 13 ug/dL (50-175)
[2021-03-07 08:30] VITALS: BP 137/73
[2021-03-07 10:53] LABS: URINE BILIRUBIN NEGATIVE (Negative); URINE BLOOD 3+ (Negative); URINE CLARITY CLEAR; URINE COLOR YELLOW; URINE GLUCOSE-RANDOM NEGATIVE (Negative); URINE KETONES NEGATIVE (Negative); URINE LEUKOCYTES-REFLEX 1+ (Negative); URINE NITRITE-REFLEX NEGATIVE (Negative); URINE PROTEIN 2+ (Negative); URINE SPECIFIC GRAVITY 1.025 (1.005-1.030); URINE UROBILINOGEN 0.2 E.U./dl (0.2-1.0)
[2021-03-07 11:00] LABS: CASTS None Seen /LPF (None Seen); CRYSTALS None Seen /LPF (None Seen); SQUAMOUS 0-3 Few /LPF (0-3); URINE RBC 0-2 Rare /HPF (0-2); URINE WBC-REFLEX 6-15 Few /HPF (0-5)
[2021-03-07 12:39] VITALS: BP 106/94
[2021-03-07 16:48] VITALS: BP 168/95
[2021-03-07 20:00] VITALS: BP 124/66
[2021-03-08 00:24] VITALS: BP 132/62
[2021-03-08 02:06] LABS: GLYCOHEMOGLOBIN (HGB A1C) 8.4 % (4.8-5.6)
[2021-03-08 05:00] VITALS: BP 130/60
[2021-03-08 10:58] LABS: ABSOLUTE EOSINOPHILS 0.4 thou/uL (0.0-0.7); ABSOLUTE LYMPHOCYTES 0.6 thou/uL (0.8-5.3); ABSOLUTE MONOCYTES 1.1 thou/uL (0.0-1.2); ABSOLUTE NEUTROPHILS 6.7 thou/uL (1.6-8.1); BASOPHILS 0.4 %; EOSINOPHILS 4.8 %; HEMOGLOBIN 8.7 gm/dL (12.0-15.0); LYMPHOCYTES 6.9 %; MCH 24.4 pg (26.0-34.0); MCHC 31.2 g/dL (28.0-37.0); MCV 78.3 fL (80.0-100.0); MONOCYTES 12.7 %; MPV 7.5 fl. (7.2-11.1); NUCLEATED RBCS 0 /100WBC; PLATELET COUNT* 303 thou/uL (150-400); POLYS 75.2 %; RBC 3.58 mil/uL (4.20-5.00); RDW-CV 19.2 % (10.5-14.5)
[2021-03-08 11:02] LABS: CALCIUM 8.5 mg/dL (8.5-10.1); CREATININE 3.9 mg/dL (0.6-1.3); POTASSIUM 3.7 mmol/L (3.5-5.1)
[2021-03-08 12:00] VITALS: BP 160/84
[2021-03-08 16:00] VITALS: BP 160/94
[2021-03-08 20:00] VITALS: BP 190/109
[2021-03-09] VITALS: BP 150/75
[2021-03-09 04:09] VITALS: BP 182/99
[2021-03-09 05:29] LABS: CALCIUM 8.6 mg/dL (8.5-10.1); CREATININE 3.7 mg/dL (0.6-1.3); POTASSIUM 3.7 mmol/L (3.5-5.1)
[2021-03-09 08:30] VITALS: BP 148/76
[2021-03-09 11:56] LABS: ABSOLUTE BASOPHILS 0.1 thou/uL (0.0-0.2); ABSOLUTE EOSINOPHILS 0.5 thou/uL (0.0-0.7); ABSOLUTE LYMPHOCYTES 0.7 thou/uL (0.8-5.3); ABSOLUTE MONOCYTES 1.2 thou/uL (0.0-1.2); ABSOLUTE NEUTROPHILS 6.3 thou/uL (1.6-8.1); BASOPHILS 0.6 %; EOSINOPHILS 5.8 %; HEMATOCRIT 29.1 % (37.0-47.0); HEMOGLOBIN 9.2 gm/dL (12.0-15.0); MCH 24.8 pg (26.0-34.0); MCHC 31.8 g/dL (28.0-37.0); MONOCYTES 13.7 %; MPV 7.4 fl. (7.2-11.1); NUCLEATED RBCS 0 /100WBC; PLATELET COUNT* 321 thou/uL (150-400); POLYS 71.9 %; RBC 3.73 mil/uL (4.20-5.00); RDW-CV 19.7 % (10.5-14.5); WBC 8.7 thou/uL (4.0-11.0)
[2021-03-09 15:39] VITALS: BP 154/84
[2021-03-09 19:29] LABS: MAGNESIUM 2.2 mg/dL (1.8-2.4); POTASSIUM 3.8 mmol/L (3.5-5.1)
[2021-03-09 20:15] VITALS: BP 145/74
[2021-03-10] VITALS: BP 178/79
[2021-03-10 03:58] LABS: CALCIUM 9.1 mg/dL (8.5-10.1); POTASSIUM 3.7 mmol/L (3.5-5.1)
[2021-03-10 04:00] VITALS: BP 160/54
[2021-03-10 04:01] LABS: CREATININE 3.8 mg/dL (0.6-1.3); TROPONIN-I LEVEL 0.19 ng/mL (<0.06)
[2021-03-10 04:10] LABS: HEMOGLOBIN 9.2 gm/dL (12.0-15.0); MCH 24.2 pg (26.0-34.0); MCHC 31.6 g/dL (28.0-37.0); MCV 76.7 fL (80.0-100.0); MPV 7.4 fl. (7.2-11.1); NUCLEATED RBCS 0 /100WBC; PLATELET COUNT* 338 thou/uL (150-400); RBC 3.78 mil/uL (4.20-5.00); WBC 9.8 thou/uL (4.0-11.0)
[2021-03-10 05:52] LABS: ABSOLUTE LYMPHOCYTES 0.8 thou/uL (0.8-5.3); ABSOLUTE MONOCYTES 0.2 thou/uL (0.0-1.2); ABSOLUTE NEUTROPHILS 8.8 thou/uL (1.6-8.1); ANISOCYTOSIS 1+; PLATELET ESTIMATE ADEQUATE; POIKILOCYTOSIS 1+
[2021-03-10 08:52] VITALS: BP 147/79
--- NOTE | 2021-03-10 11:46 | EKG ---
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: SHELLI : 1970 Requested By: Juan Austin Order Number: [id number] Reading MD: Dejan Burdick Measurements Intervals [place] Rate: 82 P: 52 FL: 188 QRS: 64 QRSD: 114 T: 61 QT: 380 QTc: 444 Interpretive Statements Sinus rhythm Borderline intraventricular conduction delay Low voltage, precordial leads Compared to ECG 10/02/2020 17:18:45 Low QRS voltage now present Electronically Signed On 03-10-2021 11:46:10 CDT by Dejan Burdick [email or web address] <ELECTRONICALLY SIGNED> By: Dejan Burdick MD, [facility] 03/10/21 1146 1529 1529 Dejan Burdick MD, [facility] /EPI
[2021-03-10 12:07] VITALS: BP 150/87
[2021-03-10 16:00] VITALS: BP 139/81
[2021-03-10 20:10] VITALS: BP 149/81
[2021-03-11] VITALS (7 sets, daily range): BP systolic 85–174; BP diastolic 75–93
[2021-03-11 04:36] LABS: CALCIUM 9.2 mg/dL (8.5-10.1); CREATININE 3.8 mg/dL (0.6-1.3); POTASSIUM 3.4 mmol/L (3.5-5.1)
--- NOTE | 2021-03-11 08:22 | CON ---
[address] [address] CONSULTATION Name: YOUNG JACOBSEN Room: [address] IN .R.#: [id number] Admission: 03/04/21 Attend Phys: Jt Blackwood Discharge: Date of : 70 Report #: [id number] THIS REPORT FOR: cc: FAM - No family physician/PCP FAM - No family physician/PCP Aurelio Infante MD [facility] ~ DOC #: [id number] Aurelio Infante MD DATE OF CONSULTATION: 03/10/2021 CARDIOLOGY CONSULTATION INDICATION: Diastolic heart failure, volume overload and arrhythmia. HISTORY OF PRESENT ILLNESS: The patient is a 50-year-old -Turkmen female who was admitted to the hospital with complaints of knee pain after slipping and falling. She reported generalized weakness as well. She has a history of morbid obesity and diastolic heart failure. Echocardiogram 6 months ago showed EF of 55-60%. She has had echos in the past that have shown mild systolic dysfunction. She has chronic diastolic heart failure with acute exacerbation at this time. She denies chest pain. She is noted to have a chronically elevated troponin on this admission as well as previous admissions. NT-proBNP is significantly elevated consistent with acute heart failure. Additionally, she has acute on chronic renal failure. Baseline creatinine appears to be approximately 3.8 presently. A 12-lead EKG shows sinus rhythm. There is a borderline intraventricular conduction delay and low voltage throughout. Telemetry monitoring shows sinus rhythm with episodes of artifact. I do not see any evidence of other dysrhythmia at this time. PAST MEDICAL HISTORY: 1. Morbid obesity. 2. Hypoventilation syndrome. 3. Chronic renal insufficiency. 4. Obstructive sleep apnea. 5. COPD. 6. Hypertension. 7. Hypertensive heart disease. 8. Chronic diastolic heart failure. 9. Chronically elevated troponin. 10. Diabetes. 11. Asthma. 12[place] [address] CONSULTATION Name: YOUNG JACOBSEN Room: [address]#: [id number] Admission: 03/04/21 Attend Phys: Jt Blackwood Discharge: Date of : 70 Report #: [id number] 13. Depression. PAST SURGICAL HISTORY: 1. Hernia repair x 6. 2. Keloid removal. 3. Carpal tunnel surgery. CURRENT MEDICATIONS: Metoprolol tartrate 5 mg q.6 hours IV push p.r.n., hydralazine 100 mg p.o. t.i.d., tramadol 50 mg q. 4 hours p.r.n., Lasix drip, insulin 20 units of glargine at bedtime, Singulair 10 mg at bedtime, atorvastatin 40 mg at bedtime, Nystatin topical powder t.i.d., electrolyte replacement protocol, heparin 5000 units subcutaneous b.i.d., insulin lispro 10 units after meals, Florastor 250 mg p.o. before meal, gabapentin 300 mg p.o. t.i.d., clonidine 0.2 mg t.i.d., iron sulfate 325 mg p.o. daily, sertraline 50 mg p.o. daily, amlodipine 10 mg p.o. daily, loratadine 10 mg p.o. daily, aspirin 81 mg p.o. daily, sliding scale insulin as directed, Zofran q. 4 hours p.r.n., MiraLax 17 grams p.o. daily, milk of magnesia p.r.n., Benadryl 25 mg at bedtime p.r.n., Tylenol p.r.n., Brovana inhaler b.i.d., albuterol inhaler q. 6h. p.r.n., Zanaflex 2 mg q. 8 hours p.r.n., Protonix 40 mg p.o. daily, Nitrostat 0.4 mg sublingual p.r.n., Pulmicort Respules b.i.d., methylprednisolone 125 mg IV x 3 doses, metolazone p.r.n. ALLERGIES: MORPHINE, BACTRIM, TRIMETHOPRIM, TETANUS TOXOID, LATEX. SOCIAL HISTORY: The patient drinks alcohol rarely. She does not smoke. FAMILY HISTORY: Noncontributory. REVIEW OF SYSTEMS: Positive for joint pain, shortness of breath, mild depression and anxiety, weight gain, nonproductive cough, type 2 diabetes mellitus, history of anemia, seasonal allergies with medical allergies as outlined above, otherwise as per HPI. PHYSICAL EXAMINATION: VITAL SIGNS: Blood pressure 150/87, pulse 93 and regular. GENERAL: This is a morbidly obese -Turkmen female who does not appear to be in distress. HEENT: Head normocephalic, atraumatic. Extraocular muscles intact. Scleral edema noted. Mucous membranes are moist. NECK: Examination of the neck shows no obvious jugular venous distention. CHEST: Reveals diminished breath sounds throughout with expiratory wheezes. CARDIAC: Reveals a regular rhythm. I do not appreciate gallop or murmur. ABDOMEN: Reveals protuberant. Bowel sounds present. EXTREMITIES: Show chronic skin changes from edema as well as acute edema. [facility] [address] [place] [address] CONSULTATION Name: YOUNG JACOBSEN Room: [address] IN [facility]#: [id number] Admission: 03/04/21 Attend Phys: Jt Blackwood Discharge: Date of : 70 Report #: [id number] SKIN: Dry. LABORATORY DATA: Reviewed. Electrolytes within normal limits. BUN 63, creatinine 3.8, serum glucose 230. LFTs within normal limits. Troponins are chronically elevated at 0.18, 0.18, 0.19. NT-proBNP was elevated at 19,972 on admission. Coags are within normal limits. White blood cell count 9.8, hemoglobin 9.2, MCV 76.7, platelet count 330,000. Chest x-ray shows pulmonary venous congestion and cardiomegaly. IMPRESSION AND RECOMMENDATIONS: 1. Acute on chronic diastolic heart failure. The patient is diuresing adequately on Lasix drip. Would continue as tolerated. 2. Artifact on telemetry. I do not appreciate any significant arrhythmia. 3. Respiratory failure, multifactorial in etiology including chronic obstructive pulmonary disease and morbid obesity. 4. Acute on chronic renal insufficiency. 5. History of asthma, on inhalers presently. 6. Obstructive sleep apnea, on CPAP. MD ROMI Prado/NALDO <ELECTRONICALLY SIGNED> By: Aurelio Infante MD, [facility] 03/11/21 [address] [place], [place] [address]coral Infante MD, FACC /nt
[2021-03-12] VITALS (7 sets, daily range): BP systolic 138–186; BP diastolic 61–102
[2021-03-12 05:16] LABS: HEMATOCRIT 28.3 % (37.0-47.0); MCH 24.2 pg (26.0-34.0); MCHC 31.8 g/dL (28.0-37.0); MCV 76.2 fL (80.0-100.0); MPV 7.3 fl. (7.2-11.1); RBC 3.72 mil/uL (4.20-5.00); RDW-CV 19.3 % (10.5-14.5); WBC 11.5 thou/uL (4.0-11.0)
[2021-03-12 05:35] LABS: CALCIUM 9.1 mg/dL (8.5-10.1); CREATININE 3.6 mg/dL (0.6-1.3); MAGNESIUM 1.9 mg/dL (1.8-2.4); POTASSIUM 3.3 mmol/L (3.5-5.1)
--- NOTE | 2021-03-12 08:59 | CON ---
[address] [address] CONSULTATION Name: YOUNG JACOBSEN Room: [address] IN .R.#: [id number] Admission: 03/04/21 Attend Phys: Jt Blackwood Discharge: Date of : 70 Report #: [id number] THIS REPORT FOR: cc: BECCA - No family physician/PCP BECCA - No family physician/PCP Dhara Kitchen MD ~ DOC #: [id number] Dhara Kitchen MD DATE OF CONSULTATION: 03/06/2021 NEPHROLOGY CONSULTATION CONSULTING PHYSICIAN: Arnoldo Alarcon DO REASON FOR NEPHROLOGY CONSULTATION: Acute kidney injury on chronic kidney disease stage IV. REASON FOR ADMISSION: Shortness of breath and left leg pain, status post fall. HISTORY OF PRESENT ILLNESS: The patient is a 50-year-old female who has past medical history of chronic kidney disease stage IV, her baseline creatinine most recently earlier part of this year in October was running 2.1-2.3; she has diabetes type 2; she had a renal biopsy in 2008, which showed mild arterionephrosclerosis and FSGS tip variant, has not followed up with Nephrology as outpatient since 2012; she is morbidly obese and with multiple other medical problems was brought in to evaluate for a fall at home. The patient also reported some shortness of breath, but states that this has been going on for many weeks. EMS also noticed that she had a hoarding situation going on at home with no family members to assist her. She does have issues with mobility and apparently fell at home and was having pain in her left leg on admission. She was also found to be fluid overloaded and her creatinine was 3.7 on admission. She takes Lasix at home at 80 mg a day and was also using ibuprofen about 2 tablets a day at least for a week. She has a catheter in place and is nonoliguric. Her blood pressure is running slightly towards the higher side at 170 systolic. When I saw her, she just looked tachypneic, otherwise no specific complaints. ALLERGIES: TO MORPHINE, SULFAMETHOXAZOLE, TETANUS TOXOID, TAPE, TRIMETHOPRIM. REVIEW OF SYSTEMS: As mentioned in history of present illness, otherwise 10-point review of systems are negative. PAST MEDICAL AND SURGICAL HISTORY: Includes chronic kidney disease stage IV due to hypertension, has history of FSGS tip variant, possibly could be having diabetic nephropathy as well, baseline creatinine is 2.1-2.3; hypertension; [place] [address] CONSULTATION Name: YOUNG JACOBSEN Room: [address]#: [id number] Admission: 03/04/21 Attend Phys: Jt Blackwood Discharge: Date of : 70 Report #: [id number] COPD; morbidly obese; asthma; hernia x 6; keloid removals; carpal tunnel surgery; super morbid obesity; obstructive sleep apnea; obesity hypoventilation syndrome; chronic pain; venous stasis; IBS; anxiety; depression; coronary artery disease. FAMILY HISTORY: Reviewed and noncontributory. SOCIAL HISTORY: Former smoker, does not use alcohol, does not use recreational drugs. MEDICATIONS: At home, which include clonidine, hydralazine, prednisone, Florastor, hydrocortisone ointment, carvedilol, diclofenac gel, clotrimazole, insulin glargine and lispro, amlodipine, omeprazole, tizanidine, nystatin, ferrous sulfate, atorvastatin, ergocalciferol, budesonide/formoterol, Lasix 80 mg a day, albuterol. PHYSICAL EXAMINATION: VITAL SIGNS: Blood pressure is 172/82, temperature is afebrile, pulse rate is 79, respiratory rate is 18 and pulse ox is 97% on 5 liters oxygen via nasal cannula. GENERAL: She is morbidly obese. She is awake, alert, oriented x 3. HEAD AND EYES: Atraumatic, normocephalic. Conjunctivae are normal. EARS, NOSE AND THROAT: Normal ears and nose. Mucous membranes are dry. NECK: JVD difficult to assess because neck is very short and obese. CHEST: Bilateral diminished breath sounds anteriorly. CARDIOVASCULAR SYSTEM: S1 and S2 normal. No murmurs. ABDOMEN: Obese. Bowel sounds are decreased. Abdomen is nontender. BREASTS: Also, please note, there is bilateral breast tissue edema, at least 3+. EXTREMITIES: Lower extremities, 3+ edema easily. NEUROLOGIC: Neurological function is grossly intact. PSYCHIATRIC: Mood and affect-gonzalez, she seems to be normal. LABORATORY DATA: WBC is 8.5, hemoglobin is 8.6, platelet count is 287. Sodium is 144, potassium is 4.1, chloride is 107, CO2 is 31, BUN 51, creatinine is 3.9 and troponin of 0.18. Other labs are reviewed. IMAGING: Chest x-ray was reviewed. ASSESSMENT: 1. Acute kidney injury on chronic kidney disease stage IV. Baseline creatinine is 2.1-2.3, chronic kidney disease is because of hypertension. She has a history of focal segmental glomerulosclerosis tip variant, this biopsy was from 2008. Acute kidney injury seems to be because of fluid overload [place] [address] CONSULTATION Name: YOUNG JACOBSEN Room: [address]#: [id number] Admission: 03/04/21 Attend Phys: Jt Blackwood Discharge: Date of : 70 Report #: [id number] ibuprofen, this could be acute tubular necrosis at this point as well. Urinalysis, urine protein-creatinine ratio and renal ultrasound will be checked. We will also check a urine CPK because she recently had a fall. 2. Fluid overload. 3. Severe obstructive sleep apnea and obesity hypoventilation syndrome. 4. Morbid obesity. 5. Acute on chronic diastolic congestive heart failure. 6. Chronic obstructive pulmonary disease without current exacerbation. 7. Diabetes type 2. Management per primary team. 8. Hypertension. Blood pressure running towards the higher side. 9. History of asthma. 10. Venous stasis. 11. Anxiety, depression. 12. History of coronary artery disease. 13. Concerning living situation at home. 14. Elevated troponin. PLAN: 1. Clinically, looks fluid overloaded, we will switch her Lasix from oral to Lasix drip at 10 mg an hour. 2. Creatinine might get worse with diuresis. I explained this to her, she might be heading towards dialysis. 3. We will check a UA, urine ejtvgxy-bu-fumltwuhyw ratio as well as renal ultrasound. 4. She is also anemic. We will check iron parameters. 5. We will check a hemoglobin A1c as well. 6. Topical NSAID gel also stopped. Avoid all NSAIDs. Thank you for this consultation. We will follow with you. Discussed with the patient and the patient's nurse in detail. Dhara Kitchen MD AV/DARLIN <ELECTRONICALLY SIGNED> By: Dhara Kitchen MD 03/12/21 [id number] Kitchen MD /nt
[2021-03-13 04:02] VITALS: BP 156/87
[2021-03-13 04:56] LABS: ABSOLUTE EOSINOPHILS 0.2 thou/uL (0.0-0.7); ABSOLUTE LYMPHOCYTES 1.6 thou/uL (0.8-5.3); ABSOLUTE MONOCYTES 1.6 thou/uL (0.0-1.2); ABSOLUTE NEUTROPHILS 6.8 thou/uL (1.6-8.1); BASOPHILS 0.2 %; EOSINOPHILS 2.2 %; HEMATOCRIT 31.2 % (37.0-47.0); HEMOGLOBIN 9.9 gm/dL (12.0-15.0); LYMPHOCYTES 15.8 %; MCH 24.3 pg (26.0-34.0); MCHC 31.7 g/dL (28.0-37.0); MCV 76.6 fL (80.0-100.0); MONOCYTES 15.9 %; MPV 6.9 fl. (7.2-11.1); NUCLEATED RBCS 0 /100WBC; PLATELET COUNT* 384 thou/uL (150-400); POLYS 65.9 %; RBC 4.07 mil/uL (4.20-5.00); RDW-CV 19.1 % (10.5-14.5); WBC 10.4 thou/uL (4.0-11.0)
[2021-03-13 05:11] LABS: ALBUMIN 2.4 g/dL (3.4-5.0); CALCIUM 8.7 mg/dL (8.5-10.1); CREATININE 3.5 mg/dL (0.6-1.3); TOTAL BILIRUBIN 0.2 mg/dL (<0.1-1.0); TOTAL PROTEIN 6.2 g/dL (6.4-8.2)
[2021-03-13 05:20] LABS: POTASSIUM 2.9 mmol/L (3.5-5.1)
[2021-03-13 12:01] VITALS: BP 169/89
[2021-03-13] MEDS ORDERED: DEMADEX20 MG PO (12:11)
[2021-03-13 16:00] VITALS: BP 169/83
[2021-03-13 19:45] VITALS: BP 186/88
[2021-03-14] VITALS (7 sets, daily range): BP systolic 140–157; BP diastolic 49–85
[2021-03-14 06:05] LABS: CREATININE 3.2 mg/dL (0.6-1.3); MAGNESIUM 1.8 mg/dL (1.8-2.4); POTASSIUM 3.2 mmol/L (3.5-5.1)
[2021-03-15 04:03] VITALS: BP 136/75
[2021-03-15 05:19] LABS: ABSOLUTE EOSINOPHILS 0.4 thou/uL (0.0-0.7); ABSOLUTE LYMPHOCYTES 1.1 thou/uL (0.8-5.3); ABSOLUTE MONOCYTES 1.2 thou/uL (0.0-1.2); ABSOLUTE NEUTROPHILS 6.1 thou/uL (1.6-8.1); BASOPHILS 0.3 %; EOSINOPHILS 4.1 %; HEMATOCRIT 30.5 % (37.0-47.0); HEMOGLOBIN 9.6 gm/dL (12.0-15.0); LYMPHOCYTES 13.1 %; MCH 24.3 pg (26.0-34.0); MCHC 31.5 g/dL (28.0-37.0); MCV 77.2 fL (80.0-100.0); MONOCYTES 13.3 %; MPV 7.2 fl. (7.2-11.1); NUCLEATED RBCS 0 /100WBC; PLATELET COUNT* 314 thou/uL (150-400); POLYS 69.2 %; RBC 3.95 mil/uL (4.20-5.00); RDW-CV 19.2 % (10.5-14.5); WBC 8.7 thou/uL (4.0-11.0)
[2021-03-15 06:12] LABS: ALBUMIN 2.3 g/dL (3.4-5.0); CALCIUM 8.5 mg/dL (8.5-10.1); CREATININE 3.1 mg/dL (0.6-1.3); POTASSIUM 3.4 mmol/L (3.5-5.1); TOTAL BILIRUBIN 0.2 mg/dL (<0.1-1.0); TOTAL PROTEIN 5.9 g/dL (6.4-8.2)
[2021-03-15 08:00] VITALS: BP 111/78
[2021-03-15 20:00] VITALS: BP 155/89
[2021-03-16 00:04] VITALS: BP 120/55
[2021-03-16 03:40] VITALS: BP 125/60
[2021-03-16 06:07] LABS: ABSOLUTE BASOPHILS 0.1 thou/uL (0.0-0.2); ABSOLUTE EOSINOPHILS 0.4 thou/uL (0.0-0.7); ABSOLUTE LYMPHOCYTES 1.1 thou/uL (0.8-5.3); ABSOLUTE MONOCYTES 0.9 thou/uL (0.0-1.2); ABSOLUTE NEUTROPHILS 6.1 thou/uL (1.6-8.1); BASOPHILS 0.8 %; EOSINOPHILS 4.2 %; HEMATOCRIT 28.9 % (37.0-47.0); HEMOGLOBIN 9.2 gm/dL (12.0-15.0); LYMPHOCYTES 13.2 %; MCH 24.7 pg (26.0-34.0); MCV 77.2 fL (80.0-100.0); MONOCYTES 10.2 %; MPV 7.1 fl. (7.2-11.1); NUCLEATED RBCS 0 /100WBC; PLATELET COUNT* 279 thou/uL (150-400); POLYS 71.6 %; RBC 3.74 mil/uL (4.20-5.00); RDW-CV 19.1 % (10.5-14.5); WBC 8.5 thou/uL (4.0-11.0)
[2021-03-16 06:20] LABS: ALBUMIN 2.4 g/dL (3.4-5.0); CALCIUM 8.5 mg/dL (8.5-10.1); CREATININE 2.9 mg/dL (0.6-1.3); POTASSIUM 3.6 mmol/L (3.5-5.1); TOTAL BILIRUBIN 0.2 mg/dL (<0.1-1.0)
[2021-03-16 08:00] VITALS: BP 140/63
[2021-03-16 12:00] VITALS: BP 136/78
[2021-03-16 16:00] VITALS: BP 141/59
[2021-03-16 20:00] VITALS: BP 124/66; BP 137/78
[2021-03-17] VITALS: BP 104/47; BP 146/74
[2021-03-17 03:37] LABS: ABSOLUTE BASOPHILS 0.1 thou/uL (0.0-0.2); ABSOLUTE EOSINOPHILS 0.3 thou/uL (0.0-0.7); ABSOLUTE MONOCYTES 0.9 thou/uL (0.0-1.2); ABSOLUTE NEUTROPHILS 5.5 thou/uL (1.6-8.1); BASOPHILS 0.7 %; EOSINOPHILS 4.2 %; HEMATOCRIT 27.1 % (37.0-47.0); HEMOGLOBIN 8.6 gm/dL (12.0-15.0); MCH 24.4 pg (26.0-34.0); MCHC 31.6 g/dL (28.0-37.0); MONOCYTES 12.1 %; MPV 7.2 fl. (7.2-11.1); NUCLEATED RBCS 0 /100WBC; PLATELET COUNT* 249 thou/uL (150-400); RBC 3.51 mil/uL (4.20-5.00); RDW-CV 19.6 % (10.5-14.5); WBC 7.9 thou/uL (4.0-11.0)
[2021-03-17 04:00] VITALS: BP 147/73
[2021-03-17 04:11] LABS: ALBUMIN 2.3 g/dL (3.4-5.0); CALCIUM 8.5 mg/dL (8.5-10.1); CREATININE 3.1 mg/dL (0.6-1.3); POTASSIUM 3.7 mmol/L (3.5-5.1); TOTAL BILIRUBIN 0.2 mg/dL (<0.1-1.0); TOTAL PROTEIN 5.7 g/dL (6.4-8.2)
[2021-03-17 08:00] VITALS: BP 141/78
[2021-03-17 09:52] VITALS: BP 141/78
== END 2021-03-17 14:10 | DRG 291 ==
LOC: M.ERS 20:33 → M.TBA-ER 22:14 → M.2W 23:05
PROVIDERS: Internal Medicine; Internal Medicine Cardiovascular Disease; Personal Emergency Response Attendant; ADMIT Internal Medicine; ATTEND Internal Medicine
DX: I13.0 Hypertensive heart and chronic kidney disease with heart failure and stage 1 through stage 4 chronic kidney disease, or unspecified chronic kidney disease (principal); J96.22 Acute and chronic respiratory failure with hypercapnia; I50.33 Acute on chronic diastolic (congestive) heart failure; N17.0 Acute kidney failure with tubular necrosis; E66.2 Morbid (severe) obesity with alveolar hypoventilation; Z68.45 Body mass index [BMI] 70 or greater, adult; N18.4 Chronic kidney disease, stage 4 (severe); J44.9 Chronic obstructive pulmonary disease, unspecified; E11.22 Type 2 diabetes mellitus with diabetic chronic kidney disease; F41.9 Anxiety disorder, unspecified; F32.9 Major depressive disorder, single episode, unspecified; I25.10 Atherosclerotic heart disease of native coronary artery without angina pectoris; G89.29 Other chronic pain; I87.8 Other specified disorders of veins; E87.6 Hypokalemia; Z20.822 Contact with and (suspected) exposure to COVID-19; Z79.4 Long term (current) use of insulin; Z79.899 Other long term (current) drug therapy; Z79.82 Long term (current) use of aspirin; Z88.5 Allergy status to narcotic agent; Z88.2 Allergy status to sulfonamides; Z88.7 Allergy status to serum and vaccine; Z88.1 Allergy status to other antibiotic agents; Z91.040 Latex allergy status; Z87.891 Personal history of nicotine dependence